=== PATIENT | female | born 1980 | race Caucasian/White ===

== ENCOUNTER 2016-06-12 22:30 | Emergency (ER) | payer OTHER ==
[~2016-06-12] VITALS: Ht 167.6 cm; Wt 127.4 kg
[~2016-06-12 22:30] MED LIST: AMIT25TA9 PO; ARIP5TAB PO; CHLO25TA16 PO; CIPR-280 PO; METF-200 PO; ONDA4TAB7 PO; OXYB5TAB25 PO; OXYC1TAB8 PO; SERT-88 PO; TAMS-1 PO; [UNRECOGNIZED DRUG - CODE] PO; [UNRECOGNIZED DRUG - OTHER]
--- OUTSIDE RECORDS SUMMARY | 2016-06-12 22:34 | XMS REPORT | Referral Summary ---
Author Author [facility] Organization [facility] Address Unknown Phone Unavailable Care Team Providers Care Certified Hyperbaric Technician Name Role Phone Jaziel Maynard Primary Care Physician [phone] Encounter Date(s): 07/26/14 - 07/26/14 [facility] [address] [address] [facility] Discharge Diagnosis: Diabetes Discharge Disposition: 01-Home or Self Care Attending Physician: Geovany Smalls MD Admitting Physician: Geovany Smalls MD Vital Signs Most recent to 1 oldest [Reference Range]: Peripheral Pulse 60 bpm Rate [60-100 bpm] (07/26/14 1:59 PM) Blood Pressure 100/70 mmHg [90-140/60-90 mmHg] (07/26/14 1:59 PM) Problem List Condition Effective Dates Status Health Status Informant Abdominal Active pain(Confirmed) Anxiety(Confirmed) Resolved bladder Resolved spasms(Confirmed) Chronic Active pain(Confirmed) depression(Confirmed Resolved ) diabetes(Confirmed) Resolved Endometriosis(Confir Resolved med) Hx of Kidney Resolved Stones(Confirmed) Hypercalcemia(Confir Active med) Increased white < 12/10/14 Resolved blood cell count(Confirmed) Lumbago(Confirmed) Active Metabolic Resolved syndrome(Confirmed) Morbid Active patient obesity(Confirmed) Obesity(Confirmed) Resolved PCOS(Confirmed) Resolved Lumbar disc Active herniation(Confirmed ) Stomach Resolved ulcer(Confirmed) Thoracic or Active lumbosacral neuritis or radiculitis, unspecified(Confirme d) Thoracic Active spondylosis(Confirme d) Tobacco Active use(Confirmed) Type 2 diabetes Active mellitus(Confirmed) Varicella Resolved Zoster(Confirmed) Allergies, Adverse Reactions, Alerts Substance Reaction Severity Status penicillin Rash Active Medications Abilify 2 mg oral tablet 1 tabs, Oral, Daily, # 90 tabs, 0 Refill(s) Start Date: 08/10/13 Status: Ordered amitriptyline 25 mg oral tablet See Instructions, TAKE 1 TABLET BY MOUTH EVERY EVENING AT BEDTIME, # 30 tabs, 1 Refill(s), eRx: [facility] #[id number], TAKE 1 TABLET BY MOUTH EVERY EVENING AT BEDTIME Start Date: 01/03/15 Status: Ordered cetirizine 10 mg oral tablet 10 mg 1 tabs, Oral, Daily, # 30 tabs, 3 Refill(s), Pharmacy: [facility] # [id number], 1 tabs Oral Daily Start Date: 12/03/14 Status: Ordered chlorthalidone 50 mg oral tablet 50 mg 1 tabs, Oral, Daily, # 30 tabs, 4 Refill(s), Pharmacy: [facility] # [id number], 1 tabs Oral Daily Start Date: 07/26/14 Status: Ordered Flomax mg, Oral, Daily, 0 Refill(s) Start Date: 11/18/14 Status: Ordered hydrOXYzine hydrochloride 25 mg, Oral, BID, as needed for anxiety, 0 Refill(s) Start Date: 08/10/13 Status: Ordered metFORMIN 500 mg oral tablet, extended release See Instructions, TAKE TWO TABLETS BY MOUTH TWICE A DAY, # 120 tabs, 2 Refill(s) , eRx: [facility] #[id number], TAKE TWO TABLETS BY MOUTH TWICE A DAY Start Date: 12/08/14 Status: Ordered [facility] Prescription compound hormone BID, 0 Refill(s) Start Date: 08/22/13 Status: Ordered potassium citrate 15 mEq oral tablet, extended release See Instructions, TAKE 1 TABLET BY MOUTH TWICE EVERY DAY, # 60 unknown unit, 5 Refill(s), eRx: [facility] #[id number], TAKE 1 TABLET BY MOUTH TWICE EVERY DAY Start Date: 10/08/14 Status: Ordered sertraline 100 mg oral tablet mg tabs, Oral, Daily, 0 Refill(s) Start Date: 07/26/14 Status: Ordered traMADol 50 mg oral tablet 100 mg 2 tabs, Oral, qPM, as needed for pain, n dillons, # 60 tabs, 0 Refill(s) Start Date: 01/17/15 Status: Ordered Results No data available for this section Immunizations No data available for this section Procedures Procedure Date Related Diagnosis Body Site Left L5-S1 Translaminar 12/08/13 Appendectomy Colonoscopy1 Hernia Hysterectomy Infection wound vac- post surgery Multiple Surgeries SIVA/BSO Tonsillectomy 1Old Records reviewed. Done by Dr. perez in [place]. 03/31/09. NEG except "diminutive" polyps x2 - path report showed hyperplastic ployps. Otherwise NEG. There was a coment that "other workup into the cause of her fatigue and persistent fever has been unrevealing." Social History Social History Type Response Smoking Status Former smoker; Type: Cigarettes; Tobacco use per day: 1 Pack ; Number of years: 131 1Quit 2 weeks ago approx 06/27/14 Assessment and Plan Extracted from: Title: Office Visit Note Author: Geovany Smalls MD Date: 07/26/14 Assessment/Plan Type II diabetes, stable and acceptable control. Recurrent nephrolithiasis. Plan: Continue metformin ER 500 mg 2 tablets twice daily. Check basic chemistry, urine albumin and A1c today. Dilated eye exam annually. Immunization needs to be up-to-date on all times. Regular exercise and healthier dietary choices encouraged. Continue chlorthalidone 50 mg daily. Advised to watch her salt intake, protein intake and dairies like milk, cheese or ice cream. Patient has been consuming quite a bitof dairies and this was discouraged. Adequate water hydration especially with summer approaching. Encourage moderate amount of fruit consumption to increase citrus and hopefully minimize nephrolithiasis. To stop cigarette smoking as soon as possible. Alcohol use in moderation advised. Return to clinic again in 3 months, sooner if with new problems. Extracted from: Title: Ambulatory Patient Education Author: Geovany Smalls MD Date: Family Medicine Diabetes and Exercise Exercising regularly is important. It is not just about losing weight. It has many health benefits, such as: Improving your overall fitness, flexibility, and endurance. Increasing your bone density. Helping with weight control. Decreasing your body fat. Increasing your muscle strength. Reducing stress and tension. Improving your overall health. People with diabetes who exercise gain additional benefits because exercise: Reduces appetite. Improves the body's use of blood sugar (glucose ). Helps lower or control blood glucose. Decreases blood pressure. Helps control blood lipids (such as cholesterol and triglycerides). Improves the body's use of the hormone insulin by: Increasing the body's insulin sensitivity. Reducing the body's insulin needs. Decreases the risk for heart disease because exercising: Lowers cholesterol and triglycerides levels. Increases the levels of good cholesterol (such as high-density lipoproteins [HDL]) in the body. Lowers blood glucose levels. YOUR ACTIVITY PLAN Choose an activity that you enjoy and set realistic goals. Your health care provider or asthma educator can help you make an activity plan that works for you. You can break activities into 2 or 3 sessions throughout the day. Doing so is as good as one long session. Exercise ideas include: Taking the dog for a walk. Taking the stairs instead of the elevator. Dancing to your favorite song. Doing your favorite exercise with a friend. RECOMMENDATIONS FOR EXERCISING WITH TYPE 1 OR TYPE 2 DIABETES Check your blood glucose before exercising. If blood glucose levels are greater than 240 mg/dL, check for urine ketones. Do not exercise if ketones are present. Avoid injecting insulin into areas of the body that are going to be exercised. For example, avoid injecting insulin into: The arms when playing tennis. The legs when jogging. Keep a record of: Food intake before and after you exercise. Expected peak times of insulin action. Blood glucose levels before and after you exercise. The type and amount of exercise you have done. Review your records with your health care provider. Your health care provider will help you to develop guidelines for adjusting food intake and insulin amounts before and after exercising. If you take insulin or oral hypoglycemic agents, watch for signs and symptoms of hypoglycemia. They include: Dizziness. Shaking. Sweating. Chills. Confusion. Drink plenty of water while you exercise to prevent dehydration or heat stroke. Body water is lost during exercise and must be replaced. Talk to your health care provider before starting an exercise program to make sure it is safe for you. Remember, almost any type of activity is better than none. Document Released: 05/17/2004 Document Revised: 10/28/2013 Document Reviewed: ExitCare Patient Information 2014 [facility]. No follow up information was provided.
--- OUTSIDE RECORDS SUMMARY | 2016-06-12 22:34 | XMS REPORT | Referral Summary ---
Author Author [facility] Organization [facility] Address Unknown Phone Unavailable Care Team Providers Care Settlement Worker Name Role Phone Jaziel Maynard Primary Care Physician [phone] Encounter Date(s): 07/26/14 - 07/26/14 [facility] [address] [address] [facility] Discharge Diagnosis: Diabetes Discharge Disposition: 01-Home or [...] BEDTIME, # 30 tabs, 1 Refill(s), eRx: [facility] #[id number], TAKE 1 TABLET BY MOUTH EVERY EVENING AT BEDTIME Start Date: 01/03/15 Status: Ordered cetirizine 10 mg oral tablet 10 mg 1 tabs, Oral, Daily, # 30 tabs, 3 Refill(s), Pharmacy: [facility] # [id number], 1 tabs Oral Daily Start Date: 12/03/14 Status: Ordered chlorthalidone 50 mg oral tablet 50 mg 1 tabs, Oral, Daily, # 30 tabs, 4 Refill(s), Pharmacy: [facility] # [id number], 1 tabs Oral Daily Start Date: 07/26/14 Status: Ordered Flomax mg, Oral, Daily, 0 Refill(s) Start Date: 11/18/14 Status: Ordered hydrOXYzine hydrochloride 25 mg, Oral, BID, as needed for anxiety, 0 Refill(s) Start Date: 08/10/13 Status: Ordered metFORMIN 500 mg oral tablet, extended release See Instructions, TAKE TWO TABLETS BY MOUTH TWICE A DAY, # 120 tabs, 2 Refill(s) , eRx: [facility] #[id number], TAKE TWO TABLETS BY MOUTH TWICE A DAY Start Date: 12/08/14 Status: Ordered Misc Prescription compound hormone BID, 0 Refill(s) Start Date: 08/22/13 Status: Ordered potassium citrate 15 mEq oral tablet, extended release See Instructions, TAKE 1 TABLET BY MOUTH TWICE EVERY DAY, # 60 unknown unit, 5 Refill(s), eRx: [facility] #[id number], TAKE 1 TABLET BY MOUTH TWICE EVERY DAY Start Date: 10/08/14 Status: Ordered sertraline 100 mg oral tablet mg tabs, Oral, Daily, 0 Refill(s) Start Date: 07/26/14 Status: Ordered Results No data available for this section Immunizations No data available for this section Procedures Procedure Date Related Diagnosis Body Site Left L5-S1 Translaminar 12/08/13 Appendectomy Colonoscopy1 Hernia Hysterectomy Infection wound vac- post surgery Multiple Surgeries SIVA/BSO Tonsillectomy 1Old Records reviewed. Done by Dr. perez in [place]. 03/31/09. NEG except "diminutive" polyps x2 - [...] realistic goals. Your health care provider or hospice educator can help you make an activity [...] 10/28/2013 Document Reviewed: ExitCare Patient Information 2014 [employer], [facility]. No follow up information was provided.
--- OUTSIDE RECORDS SUMMARY | 2016-06-12 22:34 | XMS REPORT | Referral Summary ---
Author Author [facility] Organization [facility] Address Unknown Phone Unavailable Care Team Providers Care Human Resources Officer Name Role Phone Jonathan Allen Primary Care Physician [phone] Encounter [facility] [id number] Date(s): 07/04/15 - 07/04/15 [facility] [address] [place] [address] Discharge Disposition: 01-Home or Self Care Attending Physician: Eboni Rodriguez PA-C Admitting Physician: Eboni Rodriguez PA-C Referring Physician: Rafal Maynard MD Vital Signs Most recent to 1 oldest [Reference Range]: Blood Pressure 110/72 mmHg [90-140/60-90 mmHg] (07/04/15 1:05 PM) Problem List Condition Effective Dates Status Health Status Informant Abdominal Active pain(Confirmed) Anxiety(Confirmed) Resolved bladder Resolved spasms(Confirmed) Chronic low back Active pain(Confirmed) Chronic Active pain(Confirmed) DDD (degenerative Active disc disease), lumbar(Confirmed) depression(Confirmed Resolved ) diabetes(Confirmed) Resolved Endometriosis(Confir Resolved med) Hx of Kidney Resolved Stones(Confirmed) Hypercalcemia(Confir Active med) Increased white < 10/2/15 Resolved blood cell count(Confirmed) Lumbago(Confirmed) Active Lumbar Active radiculopathy(Confir med) Metabolic Resolved syndrome(Confirmed) Morbid Active patient obesity(Confirmed) Obesity(Confirmed) Resolved Encounter for Active chronic pain management(Confirmed ) PCOS(Confirmed) Resolved Lumbar disc Active herniation(Confirmed ) Stomach Resolved ulcer(Confirmed) Thoracic Active spondylosis(Confirme d) Tobacco Active use(Confirmed) Type 2 diabetes Active mellitus(Confirmed) Varicella Resolved Zoster(Confirmed) Allergies, Adverse Reactions, Alerts Substance Reaction Severity Status penicillin Rash Active Medications Abilify 2 mg oral tablet 1 tabs, Oral, Daily, # 90 tabs, 0 Refill(s) Start Date: 08/10/13 Status: Ordered allopurinol 100 mg oral tablet 100 mg 1 tabs, Oral, Daily, # 30 tabs, 5 Refill(s), Pharmacy: [facility] # [id number], 1 tabs Oral Daily Start Date: 02/23/15 Status: Ordered amitriptyline 25 mg oral tablet See Instructions, TAKE 1 TABLET BY MOUTH EVERY EVENING AT BEDTIME, # 30 tabs, 5 Refill(s), eRx: [facility] #[id number], TAKE 1 TABLET BY MOUTH EVERY EVENING AT BEDTIME Start Date: 03/16/15 Status: Ordered chlorthalidone 50 mg oral tablet See Instructions, TAKE ONE TABLET BY MOUTH DAILY, # 30 tabs, 2 Refill(s), Pharmacy: [facility] #[id number], TAKE ONE TABLET BY MOUTH DAILY Start Date: 06/21/15 Status: Ordered hydrOXYzine hydrochloride 25 mg, Oral, BID, as needed for anxiety, 0 Refill(s) Start Date: 08/10/13 Status: Ordered metFORMIN 500 mg oral tablet, extended release See Instructions, TAKE TWO TABLETS BY MOUTH TWICE A DAY, # 120 tabs, 2 Refill(s) , Pharmacy: [facility] #[id number], TAKE TWO TABLETS BY MOUTH TWICE A DAY Start Date: 06/13/15 Status: Ordered Misc Prescription compound hormone BID, 0 Refill(s) Start Date: 08/22/13 Status: Ordered potassium citrate 15 mEq oral tablet, extended release See Instructions, TAKE 1 TABLET BY MOUTH TWICE EVERY DAY, # 60 unknown unit, 4 Refill(s), eRx: [facility] #[id number], TAKE 1 TABLET BY MOUTH TWICE EVERY DAY Start Date: 04/26/15 Status: Ordered sertraline 100 mg oral tablet [...] Records reviewed. Done by Dr. perez in [place]. 03/31/09. NEG except "diminutive" polyps x2 - [...] weeks ago approx 06/27/14 Assessment and Plan No data available for this section
--- OUTSIDE RECORDS SUMMARY | 2016-06-12 22:34 | XMS REPORT | Referral Summary ---
Author Author [facility] Organization [facility] Address Unknown Phone Unavailable Care Team Providers Care Pct Name Role Phone Jaziel Maynard Primary Care Physician [phone] Encounter [facility] Date(s): 07/27/14 - 07/27/14 [facility] [address] [place] [address] Discharge Diagnosis: Elevated white blood cell count Discharge Diagnosis: Abdominal pain Discharge Diagnosis: Tobacco use Discharge Diagnosis: Chronic pain Discharge Disposition: 01-Home or Self Care Attending Physician: Rafal Maynard MD Admitting Physician: Rafal Maynard MD Vital Signs Most recent to 1 oldest [Reference Range]: Temperature Tympanic 36.8 degC [36.6-38.1 degC] (07/27/14 11:45 AM) Peripheral Pulse 60 bpm Rate [60-100 bpm] (07/27/14 11:45 AM) Blood Pressure 119/89 mmHg [90-140/60-90 mmHg] (07/27/14 11:45 AM) Problem List Condition Effective Dates Status Health [...] BEDTIME, # 30 tabs, 1 Refill(s), eRx: [facility] #[id number], TAKE 1 TABLET BY MOUTH EVERY EVENING AT BEDTIME Start Date: 01/03/15 Status: Ordered cetirizine 10 mg oral tablet 10 mg 1 tabs, Oral, Daily, # 30 tabs, 3 Refill(s), Pharmacy: [facility] # [id number], 1 tabs Oral Daily Start Date: 12/03/14 Status: Ordered chlorthalidone 50 mg oral tablet 50 mg 1 tabs, Oral, Daily, # 30 tabs, 4 Refill(s), Pharmacy: [facility] # [id number], 1 tabs Oral Daily Start Date: 07/26/14 Status: Ordered Flomax mg, Oral, Daily, 0 Refill(s) Start Date: 11/18/14 Status: Ordered hydrOXYzine hydrochloride 25 mg, Oral, BID, as needed for anxiety, 0 Refill(s) Start Date: 08/10/13 Status: Ordered metFORMIN 500 mg oral tablet, extended release See Instructions, TAKE TWO TABLETS BY MOUTH TWICE A DAY, # 120 tabs, 2 Refill(s) , eRx: [facility] #[id number], TAKE TWO TABLETS BY MOUTH TWICE A DAY Start Date: 12/08/14 Status: Ordered [facility] Prescription compound hormone BID, 0 Refill(s) Start Date: 08/22/13 Status: Ordered potassium citrate 15 mEq oral tablet, extended release See Instructions, TAKE 1 TABLET BY MOUTH TWICE EVERY DAY, # 60 unknown unit, 5 Refill(s), eRx: [facility] #[id number], TAKE 1 TABLET BY MOUTH TWICE EVERY [...] Records reviewed. Done by Dr. perez in [place]. 03/31/09. NEG except "diminutive" polyps x2 - [...] 06/27/14 Assessment and Plan Extracted from: Title: Chronic pain follow-up Author: Rafal Maynard MD Date: 07/28/14 Assessment/Plan Abdominal pain Chronic pain Tobacco use Orders: We discussed situation with all of these issues and I tried to provide emotional support. Refill provided for tramadol. Follow-up again in 3 months or sooner if needed.
--- OUTSIDE RECORDS SUMMARY | 2016-06-12 22:34 | XMS REPORT | Continuity of Care Document ---
Author Author [facility] Address Unknown Phone Unavailable Care Team Providers Care Advertising Space Clerk Name Role Phone [employer] Unavailable Unavailable Problems Medications Allergies, Adverse Reactions, Alerts Immunizations Results Vital Signs Encounters Procedures Plan of Care Social History Assessment and Plan Family History Value Date Source Advance Directives Order Name Results Value Date Source
--- OUTSIDE RECORDS SUMMARY | 2016-06-12 22:34 | XMS REPORT | Referral Summary ---
Author Author [facility] Organization [facility] Address Unknown Phone Unavailable Care Team Providers Care Oncology Technician Name Role Phone Jaziel Maynard Primary Care Physician [phone] Encounter Date(s): 07/14/14 - 07/14/14 [facility] [address] [id number] Discharge Diagnosis: Colon polyp Discharge Disposition: 01-Home or Self Care Attending Physician: Caren Shah MD Admitting Physician: Caren Shah MD Vital Signs Most recent to 1 oldest [Reference Range]: Temperature Oral 36.5 degC [35.8-37.3 degC] (07/14/14 8:39 AM) Peripheral Pulse 112 bpm Rate [60-100 bpm] *HI* (07/14/14 8:39 AM) Respiratory Rate 18 br/min [14-20 br/min] (07/14/14 8:39 AM) Blood Pressure 127/88 mmHg [90-140/60-90 mmHg] (07/14/14 8:39 AM) SpO2 99 % (07/14/14 8:39 AM) Problem List Condition Effective Dates Status [...] BEDTIME, # 30 tabs, 1 Refill(s), eRx: [facility] #[id number], TAKE 1 TABLET BY MOUTH EVERY EVENING AT BEDTIME Start Date: 01/03/15 Status: Ordered cetirizine 10 mg oral tablet 10 mg 1 tabs, Oral, Daily, # 30 tabs, 3 Refill(s), Pharmacy: [facility] # [id number], 1 tabs Oral Daily Start Date: 12/03/14 Status: Ordered chlorthalidone 50 mg oral tablet 50 mg 1 tabs, Oral, Daily, # 30 tabs, 4 Refill(s), Pharmacy: [facility] # [id number], 1 tabs Oral Daily Start Date: 07/26/14 Status: Ordered Flomax mg, Oral, Daily, 0 Refill(s) Start Date: 11/18/14 Status: Ordered hydrOXYzine hydrochloride 25 mg, Oral, BID, as needed for anxiety, 0 Refill(s) Start Date: 08/10/13 Status: Ordered metFORMIN 500 mg oral tablet, extended release See Instructions, TAKE TWO TABLETS BY MOUTH TWICE A DAY, # 120 tabs, 2 Refill(s) , eRx: [facility] #[id number], TAKE TWO TABLETS BY MOUTH TWICE A DAY Start Date: 12/08/14 Status: Ordered Misc Prescription compound hormone BID, 0 Refill(s) Start Date: 08/22/13 Status: Ordered potassium citrate 15 mEq oral tablet, extended release See Instructions, TAKE 1 TABLET BY MOUTH TWICE EVERY DAY, # 60 unknown unit, 5 Refill(s), eRx: [facility] #[id number], TAKE 1 TABLET BY MOUTH TWICE EVERY DAY Start Date: 10/08/14 Status: Ordered sertraline 100 mg oral tablet mg tabs, Oral, Daily, 0 Refill(s) Start Date: 5/18/15 Status: Ordered Results No data available for this section Immunizations No data available for this section Procedures Procedure Date Related Diagnosis Body Site Colonoscopy, flexible; with biopsy, single or 07/14/14 multiple Colonoscopy, flexible; with biopsy, single or 07/14/14 multiple Esophagogastroduodenoscopy, flexible, 07/14/14 transoral; with biopsy, single or multiple Esophagogastroduodenoscopy, flexible, 07/14/14 transoral; with biopsy, single or multiple Left L5-S1 Translaminar 12/08/13 Appendectomy Colonoscopy1 Hernia Hysterectomy Infection wound vac- post surgery Multiple Surgeries SIVA/BSO Tonsillectomy 1Old Records reviewed. Done by Dr. perez in [place]. 03/31/09. NEG except "diminutive" polyps x2 - [...] 06/27/14 Assessment and Plan Extracted from: Title: Ambulatory Patient Education Author: Caren Shah MD Date: 07/14 Family Medicine Colon Polyps Polyps are lumps of extra tissue growing inside the body. Polyps can grow in the large intestine (colon ). Most colon polyps are noncancerous (benign ). However, some colon polyps can become cancerous over time. Polyps that are larger than a pea may be harmful. To be safe, caregivers remove and test all polyps. CAUSES Polyps form when mutations in the genes cause your cells to grow and divide even though no more tissue is needed. RISK FACTORS There are a number of risk factors that can increase your chances of getting colon polyps. They include: Being older than 50 years. Family history of colon polyps or colon cancer. Long-term colon diseases, such as colitis or Crohn disease. Being overweight. Smoking. Being inactive. Drinking too much alcohol. SYMPTOMS Most small polyps do not cause symptoms. If symptoms are present, they may include: Blood in the stool. The stool may look dark red or black. Constipation or diarrhea that lasts longer than 1 week. DIAGNOSIS People often do not know they have polyps until their caregiver finds them during a regular checkup. Your caregiver can use 4 tests to check for polyps: Digital rectal exam. The caregiver wears gloves and feels inside the rectum. This test would find polyps only in the rectum. Barium enema. The caregiver puts a liquid called barium into your rectum before taking X-rays of your colon. Barium makes your colon look white. Polyps are dark, so they are easy to see in the X-ray pictures. Sigmoidoscopy. A thin, flexible tube (sigmoidoscope ) is placed into your rectum. The sigmoidoscope has a light and tiny camera in it. The caregiver uses the sigmoidoscope to look at the last third of your colon. Colonoscopy. This test is like sigmoidoscopy, but the caregiver looks at the entire colon. This is the most common method for finding and removing polyps. TREATMENT Any polyps will be removed during a sigmoidoscopy or colonoscopy. The polyps are then tested for cancer. PREVENTION To help lower your risk of getting more colon polyps: Eat plenty of fruits and vegetables. Avoid eating fatty foods. Do not smoke. Avoid drinking alcohol. Exercise every day. Lose weight if recommended by your caregiver. Eat plenty of calcium and folate. Foods that are rich in calcium include milk, cheese, and broccoli. Foods that are rich in folate include chickpeas, kidney beans, and spinach. HOME CARE INSTRUCTIONS Keep all follow-up appointments as directed by your caregiver. You may need periodic exams to check for polyps. SEEK MEDICAL CARE IF: You notice bleeding during a bowel movement. Document Released: 11/21/2004 Document Revised: 05/19/2012 Document Reviewed: [facility] Patient Information 2014 [employer]. No follow up information was provided.
--- OUTSIDE RECORDS SUMMARY | 2016-06-12 22:34 | XMS REPORT | Referral Summary ---
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 Name Role Phone Jaziel Maynard Primary Care Physician [phone] Encounter Date(s): 02/17/15 - 02/17/15 [facility] [address] [address] [facility] Discharge Diagnosis: Diabetes Discharge Disposition: 01-Home or Self Care Attending Physician: Geovany Smalls MD Admitting Physician: Geovany Smalls MD Vital Signs Most recent to 1 oldest [Reference Range]: Apical Heart Rate 60 bpm [60-100 bpm] (02/17/15 10:19 AM) Blood Pressure 116/68 mmHg [90-140/60-90 mmHg] (02/17/15 10:19 AM) Problem List Condition Effective Dates Status [...] BEDTIME, # 30 tabs, 1 Refill(s), eRx: [facility] #[id number], TAKE 1 TABLET BY MOUTH EVERY EVENING AT BEDTIME Start Date: 01/03/15 Status: Ordered cetirizine 10 mg oral tablet 10 mg 1 tabs, Oral, Daily, # 30 tabs, 3 Refill(s), Pharmacy: [facility] # [id number], 1 tabs Oral Daily Start Date: 12/03/14 Status: Ordered chlorthalidone 50 mg oral tablet 50 mg 1 tabs, Oral, Daily, # 30 tabs, 4 Refill(s), Pharmacy: [facility] # [id number], 1 tabs Oral Daily Start Date: 07/26/14 Status: Ordered Flomax mg, Oral, Daily, 0 Refill(s) Start Date: 11/18/14 Status: Ordered hydrOXYzine hydrochloride 25 mg, Oral, BID, as needed for anxiety, 0 Refill(s) Start Date: 08/10/13 Status: Ordered metFORMIN 500 mg oral tablet, extended release See Instructions, TAKE TWO TABLETS BY MOUTH TWICE A DAY, # 120 tabs, 2 Refill(s) , eRx: [facility] #[id number], TAKE TWO TABLETS BY MOUTH TWICE A DAY Start Date: 12/08/14 Status: Ordered [facility] Prescription compound hormone BID, 0 Refill(s) Start Date: 08/22/13 Status: Ordered potassium citrate 15 mEq oral tablet, extended release See Instructions, TAKE 1 TABLET BY MOUTH TWICE EVERY DAY, # 60 unknown unit, 5 Refill(s), eRx: [facility] #[id number], TAKE 1 TABLET BY MOUTH TWICE EVERY DAY Start Date: 10/08/14 Status: Ordered sertraline 100 mg oral tablet mg tabs, Oral, Daily, 0 Refill(s) Start Date: 07/26/14 Status: Ordered traMADol 50 mg oral tablet 100 mg 2 tabs, Oral, qPM, as needed for pain, [place], # 60 tabs, 0 Refill(s) Start Date: 01/17/15 Status: Ordered Results Hematology Most recent to 1 oldest [Reference Range]: WBC [4.8-10.8 13.8 10*3/uL 10*3/uL] *HI* (02/17/15 11:52 AM) RBC [4.00-5.20] 5.22 *HI* (02/17/15:52 AM) Hgb [12.0-16.0 14.8 gm/dL gm/dL] (02/17/15:52 AM) Hct [37.0-47.0 %] 43.4 % (02/17/1552 AM) MCV [82.0-99.0 fL] 83.1 fL (02/17/15:52 AM) MCH [27.0-32.0 pg] 28.4 pg (02/17/15:52 AM) MCHC [32.0-36.0 34.1 gm/dL gm/dL] (02/17/15:52 AM) RDW [11.5-14.5 %] 13.8 % (02/17/15:52 AM) Platelet [150-400 329 10*3/uL 10*3/uL] (02/17/15 11:52 AM) MPV [8.8-14.8 fL] 11.4 fL (02/17/15 11:52 AM) Neutrophils [51-75 64 % %] (02/17/15 11:52 AM) Lymphocytes [20-46 27 % %] (02/17/15 11:52 AM) Monocytes [4-11 %] 3 % *LOW* (02/17/15:52 AM) Eosinophils [0-4 %] 4 % (02/17/15:52 AM) Basophils [0-2 %] 2 % (02/17/15 11:52 AM) Neutro Absolute 8.83 10*3 [1.90-7.00 10*3] *HI* (02/17/15 11:52 AM) Lymph Absolute 3.73 10*3 [0.80-3.30 10*3] *HI* (02/17/15 11:52 AM) Swisher Absolute 0.41 10*3 [0.30-1.00 10*3] (02/17/15 11:52 AM) Eos Absolute 0.55 10*3 [0.00-0.50 10*3] *HI* (02/17/15:52 AM) Baso Absolute 0.28 10*3 [0.00-0.20 10*3] *HI* (02/17/15:52 AM) Differential Manual *ABN* (02/17/1552 AM) Chemistry Most recent to 1 oldest [Reference Range]: Sodium Lvl [135-144 137 mEq/L mEq/L] (02/17/1552 AM) Potassium Lvl 3.4 mEq/L [3.5-5.2 mEq/L] *LOW* (02/17/1552 AM) Chloride [99-111 103 mEq/L mEq/L] (02/17/15 AM) CO2 [22-31 mEq/L] 22 mEq/L (02/17/1552 AM) AGAP [3-20] 12 (02/17/15:52 AM) BUN [7-19 mg/dL] 13 mg/dL (02/17/1552 AM) Glucose Lvl [70-99 100 mg/dL mg/dL] *HI* (02/17/1552 AM) Creatinine Lvl 0.65 mg/dL [0.57-1.11 mg/dL] (02/17/15:52 AM) eGFR [>60 mL/min] >60 mL/min 1 (02/17/1552 AM) Calcium Lvl 9.7 mg/dL [8.9-10.5 mg/dL] (02/17/15:52 AM) Albumin Lvl [3.5-5.0 4.2 gm/dL gm/dL] (02/17/1552 AM) Total Protein 6.7 gm/dL [6.4-8.3 gm/dL] (02/17/15:52 AM) Globulin [1.8-4.0 2.5 gm/dL gm/dL] (02/17/15:52 AM) ALT [0-55 U/L] 30 U/L (02/17/1552 AM) AST [5-34 U/L] 36 U/L *HI* (02/17/1552 AM) Alk Phos [40-150 55 U/L U/L] (02/17/15 11:52 AM) Bili Total [0.2-1.2 0.4 mg/dL mg/dL] (02/17/15 11:52 AM) Uric Acid [2.6-6.0 6.2 mg/dL mg/dL] *HI* (02/17/15 11:52 AM) Calcium Ionized 1.31 mmol/L [1.19-1.41 mmol/L] (02/17/15 11:52 AM) PTH (Parathyroid 38.9 pg/mL Hormone) [6.6-88.9 (02/17/15 11:52 AM) pg/mL] TSH with Reflex Free 0.95 T4 [0.35-4.94] (02/17/15 11:52 AM) Hgb A1c [4.1-5.6 %] 5.9 % *HI* (02/17/15 11:52 AM) eAvg Glucose 122.6 mg/dL (02/17/15 11:52 AM) 1Result Comment: Multiply eGFR results by 1.21 for race. Immunizations No data available for this section Procedures Procedure Date Related Diagnosis Body Site Collection of venous blood by venipuncture 02/17/15 Left L5-S1 Translaminar 12/08/13 Appendectomy Colonoscopy1 Hernia Hysterectomy Infection wound vac- post surgery Multiple Surgeries SIAV/BSO Tonsillectomy 1Old Records reviewed. Done by Dr. perez in [place]. 03/31/09. NEG except "diminutive" polyps x2 - [...] Author: Geovany Smalls MD Date: Family Medicine Correction Insulin Your health care provider has decided you need to take insulin regularly. You have been given a correction scale (also called a sliding scale) in case you need extra insulin when your blood sugar is too high (hyperglycemia). The following instructions will assist you in how to use that correction scale. WHAT IS A CORRECTION SCALE? When you check your blood sugar, sometimes it will be higher than your health care provider has told you it should be. You may need an extra dose of insulin to bring your blood sugar to the recommended level (also known as your goal, target, or normal level). The correction scale is prescribed by your health care provider based on your specific needs. Your correction scale has two parts: The first shows you a blood sugar range. The second part tells you how much extra insulin to give yourself if your blood sugar falls within this range. You will not need an extra dose of insulin if your blood glucose is in the desired range. You should simply give yourself the normal amount of insulin that your health care provider has ordered for you. WHY IS IT IMPORTANT TO KEEP YOUR BLOOD SUGAR LEVELS AT YOUR DESIRED LEVEL? Keeping your blood sugar at the desired level helps to prevent long-term complications of diabetes, such as eye disease, kidney failure, nerve damage, and other serious complications. WHAT TYPE OF INSULIN WILL YOU USE? To help bring down blood sugar levels that are too high, your health care provider will prescribe a short-acting or a rapid-acting insulin. An example of a short-acting insulin would be regular insulin. Remember, you may also have a longer-acting insulin prescribed for you. WHAT DO YOU NEED TO DO? Check your blood sugar with your home blood glucose meter as recommended by your health care provider. Using your correction scale, find the range that your blood sugar lies in. Look for the units of insulin that match that blood sugar range. Give yourself the dose of correction insulin your health care provider has prescribed. Always make sure you are using the right type of insulin. Prior to the injection, make sure you have food available that you can eat in the next 1530 minutes. If your correction insulin is rapid acting, start eating your meal within 15 minutes after you have given yourself the insulin injection. If you wait longer than 15 minutes to eat, your blood sugar might get too low. If your correction insulin is short acting(regular), start eating your meal within 30 minutes after you have given yourself the insulin injection. If you wait longer than 30 minutes to eat, your blood sugar might get too low. Symptoms of low blood sugar (hypoglycemia) may include feeling shaky or weak, sweating, feeling confused, difficulty seeing, agitation, crankiness, or numbness of the lips or tongue. Check your blood sugar immediately and treat your results as directed by your health care provider. Keep a log of your blood sugar results with the time you took the test and the amount of insulin that you injected. This information will help your health care provider manage your medicines. Note on your log anything that may affect your blood sugar level, such as: Changes in normal exercise or activity. Changes in your normal schedule, such as staying up late, going on vacation , changing your diet, or holidays. New medicines. This includes prescription and [id number] medicines. Some medicines may cause high blood sugar. Sickness, stress, or anxiety. Changes in the time you took your medicine. Changes in your meals, such as skipping a meal, having a late meal, or dining out. Eating things that may affect blood glucose, such as snacks, meal portions that are larger than normal, drinks with sugar, or eating less than usual. Ask your health care provider any questions you have. Be aware of "stacking" your insulin doses. This happens when you correct a high blood sugar level by giving yourself extra insulin too soon after a previous correction dose or mealtime dose. You may then have too much insulin still active in your body and may be at risk for hypoglycemia. WHY DO YOU NEED A CORRECTION SCALE IF YOU HAVE NEVER BEEN DIAGNOSED WITH DIABETES? Keeping your blood glucose in the target range is important for your overall health. You may have been prescribed medicines that cause your blood glucose to be higher than normal. WHEN SHOULD YOU SEEK MEDICAL CARE? Contact your health care provider if: You have experienced hypoglycemia that you are unable to treat with your usual routine. You have a high blood sugar level that is not coming down with the correction dose. Your blood sugar is often too low or does not come up even if you eat a fast-acting carbohydrate. Someone who lives with you should seek immediate medical care if you become unresponsive. Document Released: 07/19/2011 Document Revised: 10/28/2013 Document Reviewed: [employer] Patient Information 2015 [employer]. This information is not intended to replace advice given to you by your health care provider. Make sure you discuss any questions you have with your health care provider. No follow up information was provided.
--- OUTSIDE RECORDS SUMMARY | 2016-06-12 22:35 | XMS REPORT | Referral Summary ---
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 [id number] Date(s): 11/18/14 - 11/18/14 [facility] [address] [place] [id number]- Discharge Diagnosis: Acute URI Discharge Diagnosis: Tobacco use Discharge Diagnosis: Chronic pain Discharge Diagnosis: Recurrent nephrolithiasis Discharge Disposition: -Home or Self Care Attending Physician: Rafal Maynard MD Admitting Physician: Rafal Maynard MD Vital Signs Most recent to 1 oldest [Reference Range]: Temperature Tympanic 36.7 degC [36.6-38.1 degC] (11/18/14 3:50 PM) Peripheral Pulse 80 bpm Rate [60-100 bpm] (11/18/14 3:50 PM) Blood Pressure 125/88 mmHg [90-140/60-90 mmHg] (11/18/14 3:50 PM) Problem List Condition Effective Dates Status Health Status Informant Abdominal Active pain(Confirmed) Anxiety(Confirmed) Resolved bladder Resolved spasms(Confirmed) Chronic low back Active pain(Confirmed) Chronic Active pain(Confirmed) depression(Confirmed Resolved ) diabetes(Confirmed) [...] Daily, # 30 tabs, 5 Refill(s), Pharmacy: [facility] # [id number], 1 tabs Oral Daily Start Date: 02/23/15 Status: Ordered amitriptyline 25 mg oral tablet See Instructions, TAKE 1 TABLET BY MOUTH EVERY EVENING AT BEDTIME, # 30 tabs, 5 Refill(s), eRx: [facility] #[id number], TAKE 1 TABLET BY MOUTH EVERY EVENING AT BEDTIME Start Date: 03/16/15 Status: Ordered chlorthalidone 50 mg oral tablet See Instructions, TAKE ONE TABLET BY MOUTH DAILY, # 30 tabs, 3 Refill(s), eRx: [facility] #[id number], TAKE ONE TABLET BY MOUTH DAILY Start Date: 02/22/15 Status: Ordered hydrOXYzine hydrochloride 25 mg, Oral, BID, as needed for anxiety, 0 Refill(s) Start Date: 08/10/13 Status: Ordered metFORMIN 500 mg oral tablet, extended release See Instructions, TAKE TWO TABLETS BY MOUTH TWICE A DAY, # 120 tabs, 0 Refill(s) , Pharmacy: [facility] #[id number], TAKE TWO TABLETS BY MOUTH TWICE A DAY Start Date: 05/11/15 Status: Ordered Mis Prescription compound hormone BID, 0 Refill(s) Start Date: 08/22/13 Status: Ordered potassium citrate 15 mEq oral tablet, extended release See Instructions, TAKE 1 TABLET BY MOUTH TWICE EVERY DAY, # 60 unknown unit, 4 Refill(s), eRx: [facility] #[id number], TAKE 1 TABLET BY MOUTH TWICE EVERY DAY Start Date: 04/26/15 Status: Ordered sertraline 100 mg oral tablet mg tabs, Oral, Daily, 0 Refill(s) Start Date: 07/26/14 Status: Ordered traMADol 50 mg oral tablet 100 mg 2 tabs, Oral, qPM, as needed for pain, n kenna, # 60 tabs, 0 Refill(s) Start Date: 05/24/15 Status: Ordered Results No data available for this section Immunizations No data available for this section Procedures Procedure Date Related Diagnosis Body Site Left L5-S1 Translaminar 12/08/13 Appendectomy Colonoscopy1 Hernia Hysterectomy Infection wound vac- post surgery Multiple Surgeries SIVA/BSO Tonsillectomy 1Old Records reviewed. Done by Dr. perez in [place]. 03/31/09. NEG except "diminutive" polyps x2 - [...] Extracted from: Title: Ambulatory Patient Education Author: Rafal Maynard MD Date: 12/23 Family Medicine Kidney Stones Kidney stones (urolithiasis) are deposits that form inside your kidneys. The intense pain is caused by the stone moving through the urinary tract. When the stone moves, the ureter goes into spasm around the stone. The stone is usually passed in the urine. CAUSES A disorder that makes certain neck glands produce too much parathyroid hormone (primary hyperparathyroidism). A buildup of uric acid crystals, similar to gout in your joints. Narrowing (stricture) of the ureter. A kidney obstruction present at (congenital obstruction). Previous surgery on the kidney or ureters. Numerous kidney infections. SYMPTOMS Feeling sick to your stomach (nauseous). Throwing up (vomiting). Blood in the urine (hematuria). Pain that usually spreads (radiates) to the groin. Frequency or urgency of urination. DIAGNOSIS Taking a history and physical exam. Blood or urine tests. CT scan. Occasionally, an examination of the inside of the urinary bladder ( cystoscopy) is performed. TREATMENT Observation. Increasing your fluid intake. Extracorporeal shock wave lithotripsyThis is a noninvasive procedure that uses shock waves to break up kidney stones. Surgery may be needed if you have severe pain or persistent obstruction. There are various surgical procedures. Most of the procedures are performed with the use of small instruments. Only small incisions are needed to accommodate these instruments, so recovery time is minimized. The size, location, and chemical composition are all important variables that will determine the proper choice of action for you. Talk to your health care provider to better understand your situation so that you will minimize the risk of injury to yourself and your kidney. HOME CARE INSTRUCTIONS Drink enough water and fluids to keep your urine clear or pale yellow. This will help you to pass the stone or stone fragments. Strain all urine through the provided strainer. Keep all particulate matter and stones for your health care provider to see. The stone causing the pain may be as small as a grain of salt. It is very important to use the strainer each and every time you pass your urine. The collection of your stone will allow your health care provider to analyze it and verify that a stone has actually passed. The stone analysis will often identify what you can do to reduce the incidence of recurrences. Only take lcmy-xwi-[id number] or prescription medicines for pain, discomfort, or fever as directed by your health care provider. Make a follow-up appointment with your health care provider as directed. Get follow-up X-rays if required. The absence of pain does not always mean that the stone has passed. It may have only stopped moving. If the urine remains completely obstructed, it can cause loss of kidney function or even complete destruction of the kidney. It is your responsibility to make sure X- rays and follow-ups are completed. Ultrasounds of the kidney can show blockages and the status of the kidney. Ultrasounds are not associated with any radiation and can be performed easily in a matter of minutes. SEEK MEDICAL CARE IF: You experience pain that is progressive and unresponsive to any pain medicine you have been prescribed. SEEK IMMEDIATE MEDICAL CARE IF: Pain cannot be controlled with the prescribed medicine. You have a fever or shaking chills. The severity or intensity of pain increases over 18 hours and is not relieved by pain medicine. You develop a new onset of abdominal pain. You feel faint or pass out. You are unable to urinate. MAKE SURE YOU: Understand these instructions. Will watch your condition. Will get help right away if you are not doing well or get worse. Document Released: 02/25/2006 Document Revised: 10/28/2013 Document Reviewed: [employer] Patient Information 2015 [employer]. This information is not intended to replace advice given to you by your health care provider. Make sure you discuss any questions you have with your health care provider. No follow up information was provided. Extracted from: Title: Office Visit Note Author: Rafal Maynard MD Date: 11/18/14 Assessment/Plan Acute URI I think symptoms are likely viral. In viewof herother medications, I suggested trying to manage this withnasal rinses. We discussed expected course. Chronic pain Return to previous planned for chronic pain management and I proved refills of tramadol. Recurrent nephrolithiasis She continues to follow with in [place] and alsoconsideringarranging [facility]. Tobacco use We discussed smoking cessation strategies anduse of nicotine replacement. Orders: traMADol, 100 mg 2 tabs, Oral, qPM, as needed for pain, n dillons, # 60 tabs, 0 Refill(s)
--- OUTSIDE RECORDS SUMMARY | 2016-06-12 22:35 | XMS REPORT | Continuity of Care Document ---
Author Author [facility] Organization [facility] Address Unknown Phone Unavailable Support Name Relationship Address Phone BRANDI FORD MD Caregiver [address] [place] [address] ABRAHAM VAUGHN MD Caregiver [address] [place] [address] RYDER STEINBERG Next Of Kin [address] [place] [address] Insurance Providers Payer Name Policy Number Subscriber Name Relationship [place] [employer] [id number] Ryder Steinberg 01 Spouse Problems Medical Problems Problem Onset Date Status ABDOMINAL PAIN Unknown Active Cough Unknown Active Right distal ureteral calculus Unknown Active Left ureteral calculus Unknown Active History of kidney stones Unknown Active Acute left flank pain Unknown Active History of kidney stones Unknown Active Medications Medication Dose Route Sig Days/Qty Instructions Order Date Discontinued Date Status Metformin Hcl 1,000 Mg PO TWICE A DAY 04/16/11 Active Citalopram Hydrobromide 40 Mg PO DAILY 04/16/11 12/31/11 Discontinued Multivitamins 1 Tab PO DAILY 04/16/11 04/23/12 Discontinued Alden-3 Fatty Acids 500 Mg PO DAILY 04/16/11 12/31/11 Discontinued [Hormone Replacement] 04/16/11 04/23/12 Discontinued Potassium Citrate 10 Meq PO TWICE A DAY 04/16/11 Active Hydrocodone Bit/Acetaminophen 1 Tab PO NEEDED 12/24/11 04/23/12 Discontinued Oxycodone Hcl/Acetaminophen 1 Tab PO NEEDED 12/24/11 12/31/11 Discontinued Ibuprofen 800 Mg PO NEEDED 12/24/11 04/23/12 Discontinued Sertraline Hcl 50 Mg PO 12/31/11 12/31/11 Discontinued [Buspar] 12/31/11 04/23/12 Discontinued Sertraline Hcl 200 Mg PO DAILY 04/23/12 Active Chlorthalidone 50 Mg PO DAILY 03/15/13 Active Aripiprazole 5 Mg PO DAILY 08/22/13 Active [Bioidentical Don] 1 Misc DAILY 08/22/13 Active Ondansetron 4 Mg PO Every 6 Hours 10 Qty 08/22/13 Active Hydrocodone Bit/Acetaminophen 1 Tab PO EVERY 4-6 HOURS PRN PAIN 20 Qty 08/22/13 Active Phenazopyridine Hcl 200 Mg PO THREE TIMES A DAY PRN URINARY DISCOMFORT 10 Qty 08/22/13 Active Social History Social History Problem Response Recorded Date/Time Smoking Status Current every day smoker 08/22/2013 11:13am Chewing Tobacco Status No 08/22/2013 11:13am Hx Substance Use No 08/22/2013 11:13am Hx Alcohol Use Y 1 glass of wine every couple of months 08/22/2013 11:13am Query Response Start Date Stop Date Smoking Status Current every day smoker Hospital Discharge Instructions No hospital discharge instructions. Plan of Care No plan of care. Functional Status No functional status results. Allergies, Adverse Reactions, Alerts Allergen Type Severity Reaction Status Last Updated Penicillin Allergy Unknown Active 08/22/13 Immunizations Name Given Type Hx Influenza Vaccination No Historical Hx Pneumococcal Vaccination Y 2009 Historical Hx Influenza Vaccination No Historical Vital Signs Acute Vital Signs Vital Response Date/Time Temperature (Fahrenheit) 99.6 deg F (96.8 - 99.1) Temperature (Calculated Celsius) 37.69908 degrees C (36.0 - 37.3) Pulse Rate (adult) 88 bpm (60 - 100) Respiratory Rate 16 breaths/min (10 - 20) O2 Sat by Pulse Oximetry 96 % (90 - 100) Blood Pressure 134/67 mm Hg Height 5 ft 6 in Weight 279 lb Body Mass Index 45.0 kg/m^2 Results Test Source Date Result Interp. Ref. Range Comments Alanine Aminotransferase (ALT/SGPT) August 22, 2013 11:35am 40 U/L N 9-52 Albumin August 22, 2013 11:35am 4.5 G/DL N 3.5-5.0 Albumin/Globulin Ratio August 22, 2013 11:35am 1.4 RATIO N 1.1-2.2 Alkaline Phosphatase August 22, 2013 11:35am 64 U/L N 38-126 Amylase Level March 15, 2013 7:15pm 49 U/L N 30-110 Anion Gap August 22, 2013 11:35am 15 MEQ/L N 5-15 Aspartate Amino Transf (AST/SGOT) August 22, 2013 11:35am 51 U/L H 14-36 BUN/Creatinine Ratio August 22, 2013 11:35am 38 RATIO H 6-26 Band Neutrophils # August 22, 2013 11:35am 0.3 T/MM3 - Band Neutrophils % August 22, 2013 11:35am 2.0 % N 0-6 Basophils # (Auto) March 15, 2013 7:15pm 0.0 T/MM3 N 0-0.2 Basophils # (Manual) December 31, 2011 9:50pm 0.2 T/MM3 N 0-0.2 Basophils % (Manual) December 31, 2011 9:50pm 1.0 % N 0-2 Basophils (%) (Auto) March 15, 2013 7:15pm 0.4 % N 0-2 Blood Urea Nitrogen August 22, 2013 11:35am 19.0 MG/DL H 7-17 Bordetella pertussis DNA (PCR) April 16, 2011 9:28pm Ref lab rpt scanned - --- 04/18/11 1527 ---BORDPCR previously reported as: SENT OUT C-Reactive Protein June 06, 2012 10:05am 8.4 MG/L N 0-9 Calcium Level August 22, 2013 11:35am 9.4 MG/DL N 8.4-10.2 Calculated Osmolality August 22, 2013 11:35am 276 MOSM/KG N 261-280 Carbon Dioxide Level August 22, 2013 11:35am 21 MEQ/L L 22-30 Chloride Level August 22, 2013 11:35am 106 MEQ/L N 98-107 Conjugated Bilirubin April 23, 2012 1:15pm 0.00 MG/DL N 0.00-0.30 Creatinine August 22, 2013 11:35am 0.5 MG/DL L 0.7-1.2 Eosinophils # (Auto) March 15, 2013 7:15pm 0.2 T/MM3 N 0-0.5 Eosinophils # (Manual) December 31, 2011 9:50pm 0.2 T/MM3 N 0-0.5 Eosinophils % (Manual) December 31, 2011 9:50pm 1.0 % N 0-4 Eosinophils (%) (Auto) March 15, 2013 7:15pm 1.8 % N 0-4 Globulin August 22, 2013 11:35am 3.2 G/DL N 2.4-3.6 Glucose Level August 22, 2013 11:35am 122 MG/DL H 65-110 Helicobacter pylori Antibodies March 08, 2011 5:59pm Negative - Hematocrit August 22, 2013 11:35am 43.5 % N 36-46 Hemoglobin August 22, 2013 11:35am 14.7 GM/DL N 12-16 Influenza Type A Antigen March 15, 2013 7:15pm Negative - Negative for Flu A protein antigen. Assay sensitivity isbetween 65-83%. A negative result does not exclude influenza virus infection. "Influenza FA" may be ordered if clinical presentation warrants confirmatory testing. Influenza Type B Antigen March 15, 2013 7:15pm Negative - Negative for Flu B protein antigen. Assay sensitivity isbetween 65-83%. A negative result does not exclude influenza virus infection. "Influenza FA" may be ordered if clinical presentation warrants confirmatory testing. Lipase March 15, 2013 7:15pm 113 U/L N 23-300 Lymphocytes # (Auto) March 15, 2013 7:15pm 1.3 T/MM3 N 1-4.8 Lymphocytes # (Manual) August 22, 2013 11:35am 2.4 T/MM3 N 1-4.8 Lymphocytes % (Manual) August 22, 2013 11:35am 16.0 % L 23-45 Lymphocytes (%) (Auto) March 15, 2013 7:15pm 12.5 % L 23-45 Mean Corpuscular Hemoglobin August 22, 2013 11:35am 28.6 UUG N 26-34 Mean Corpuscular Hemoglobin Concent August 22, 2013 11:35am 33.8 GM/DL N 31-37 Mean Corpuscular Volume August 22, 2013 11:35am 84.6 UM3 N 80-100 Mean Platelet Volume August 22, 2013 11:35am 11.0 UM3 N 9.4-12.4 Monocytes # (Auto) March 15, 2013 7:15pm 0.6 T/MM3 N 0-0.8 Monocytes # (Manual) August 22, 2013 11:35am 0.9 T/MM3 H 0-0.8 Monocytes % (Manual) August 22, 2013 11:35am 6.0 % N 0-9.0 Monocytes (%) (Auto) March 15, 2013 7:15pm 6.3 % N 0-9.0 Neutrophils # (Auto) March 15, 2013 7:15pm 8.0 T/MM3 H 1.8-7.7 Neutrophils # (Manual) August 22, 2013 11:35am 11.6 T/MM3 H 1.8-7.7 Neutrophils % (Manual) August 22, 2013 11:35am 76.0 % H 33-66 Neutrophils (%) (Auto) March 15, 2013 7:15pm 78.8 % H 33-66 Ova and Parasites (LAB) May 08, 2012 9:45pm Sent out - CALL RESULTS TO DR. CARLSO Parathyroid Hormone (Intact) June 13, 2012 11:49am 42.7 PG/ML N 7.5- 53.5 Phosphorus Level June 13, 2012 11:49am 3.3 MG/DL N 2.5-4.5 Platelet Count August 22, 2013 11:35am 359 T/MM3 N 130-400 Potassium Level August 22, 2013 11:35am 3.7 MEQ/L N 3.6-5 RDW Standard Deviation August 22, 2013 11:35am 42.5 FL N 36.9-50.2 Red Blood Count August 22, 2013 11:35am 5.14 M/MM3 N 4.00-5.20 Sodium Level August 22, 2013 11:35am 142 MEQ/L N 134-144 Total Bilirubin August 22, 2013 11:35am 0.60 MG/DL N 0.20-1.30 Total Protein August 22, 2013 11:35am 7.7 G/DL N 6.3-8.2 Unconjugated Bilirubin April 23, 2012 1:15pm 0.10 MG/DL N 0.00-1.10 Uric Acid June 13, 2012 11:49am 6.8 MG/DL N 2.5-7.5 Urine Bacteria August 22, 2013 2:10pm 1+ H - Has specimen been collected/ obtained? Y Urine Bilirubin August 22, 2013 2:10pm Negative - Has specimen been collected/obtained? Y Urine Blood August 22, 2013 2:10pm Negative - Has specimen been collected/obtained? Y Urine Calcium 24 Hour June 17, 2012 6:30am 984.2 MG/24HR H 50-150 --- 06/18/12 0942 ---UCA24C previously reported as: Test not performed MG/24HR Urine Collection Type August 22, 2013 2:10pm Cleancatch-midstream - Has specimen been collected/obtained? Y Urine Color August 22, 2013 2:10pm Yellow - Has specimen been collected /obtained? Y Urine Creatinine June 17, 2012 6:30am 84.7 MG/DL - Urine Creatinine 24 Hour June 17, 2012 6:30am 1567 MG/24HR N 800-2800 Urine Culture Indicated March 15, 2013 7:15pm Cult reflexed &setup - Has specimen been collected/obtained? Y Urine Glucose (UA) August 22, 2013 2:10pm Negative - Has specimen been collected/obtained? Y Urine Ketones August 22, 2013 2:10pm Negative - Has specimen been collected/obtained? Y Urine Leukocyte Esterase August 22, 2013 2:10pm Negative - Has specimen been collected/obtained? Y Urine Mucus March 15, 2013 7:15pm Present - Has specimen been collected/obtained? Y Urine Nitrite August 22, 2013 2:10pm Negative - Has specimen been collected/obtained? Y Urine Phosphorus June 17, 2012 6:30am 76 MG/DL - Urine Phosphorus 24 Hour June 17, 2012 6:30am 1406 MG/24HR H 400-1300 Urine Test April 23, 2012 1:01pm Negative - Has specimen been collected/obtained? Y Urine Protein August 22, 2013 2:10pm 1+ H - Has specimen been collected/ obtained? Y Urine RBC August 22, 2013 2:10pm 0-1 /HPF - Has specimen been collected /obtained? Y Urine Sodium 24 Hour June 17, 2012 6:30am 298 MEQ/24HR H 40-220 Urine Sodium mEQ/L June 17, 2012 6:30am 161 MEQ/L - Urine Specific [place] August 22, 2013 2:10pm >=1.030 H - Has specimen been collected/obtained? Y Urine Squamous Epithelial Cells August 22, 2013 2:10pm >50 - Has specimen been collected/obtained? Y Urine Total Volume June 17, 2012 6:30am 1.850 L - Urine Turbidity August 22, 2013 2:10pm Sl cloudy - Has specimen been collected/obtained? Y Urine Uric Acid June 17, 2012 6:30am 55.2 MG/DL - Urine Uric Acid 24 Hour June 17, 2012 6:30am 1021.2 MG/24HR H 250.0- 750.0 Urine Urobilinogen August 22, 2013 2:10pm 0.2 EU/DL - Has specimen been collected/obtained? Y Urine WBC August 22, 2013 2:10pm 3-5 /HPF - Has specimen been collected /obtained? Y Urine pH August 22, 2013 2:10pm 6.0 - Has specimen been collected/ obtained? Y White Blood Count August 22, 2013 11:35am 15.2 T/MM3 H 4.5-11.0 Chemistry Specimen Hemolysis August 22, 2013 11:35am 103 H 0-25 0-25: No Hemolysis.26-70: Slight Hemolysis - can falsely elevate K and Urine Protein. 71-285: Moderate Hemolysis - can falsely elevate K, Troponin I, CA 19-9, PTH, CSF GLucose, and Urine Protein, and can falsely decrease Phenytoin. 286-999: Gross Hemolysis - can falsely elevate K, Troponin I, CA 19-9, PTH, CSF Glucose, and Urine Protine, and can falsely decrease Phenytoin. Recommend specimen recollection. Glucometer January 04, 2012 6:03am 82 mg/dL N 65-110 Lab Scanned Report June 17, 2012 11:14am LAB TEST FORM REQUEST [id number] - Urine Citrate Excretion Rate June 17, 2012 6:30am 475 mg/spec - Reference Range:228 - 1191 Urine Citrate Concentration June 17, 2012 6:30am 25.7 mg/dL - Test Performed by:[place] [address] Livestock Farm Manager: Jitendra Felder III, M.D. Citrate Excretion 24 hr urine performed at [facility], [address] [place] [address] Commodity Merchant Bradford Kaufman MD Urine Oxalate mmol/spec June 17, 2012 6:30am 0.09 mmol/spec L - Reference Range:0.11 - 0.46 Urine Calcium June 17, 2012 6:30am 53.2 MG/DL - --- 06/18/12 0942 - --UCA24T previously reported as: > 17.8 MG/DL Methicillin-Resist S.aureus DNA PCR June 06, 2012 10:05am Negative - Turbidity August 22, 2013 11:35am < 20 0-20 Reactive Lymphocytes % December 31, 2011 9:50pm 4.0 % H 0-0 Glomerular Filtration Rate Calc August 22, 2013 11:35am 143 - Reactive Lymphocytes # December 31, 2011 9:50pm 0.8 T/MM3 H 0-0 Immature Granulocyte # (Auto) March 15, 2013 7:15pm 0.02 T/MM3 N 0.00- 0.03 Immature Granulocyte % (Auto) March 15, 2013 7:15pm 0.2 % N 0.0-0.5 Icterus Index August 22, 2013 11:35am < 2 0-7 MRSA Specimen Source June 06, 2012 10:05am Nasal - Urine Oxalate mg/spec June 17, 2012 6:30am 7.9 mg/spec L - Reference Range:9.7 - 40.5 Urine Oxalate Concentration mmol/L June 17, 2012 6:30am 0.05 mmol/L - Urine Oxalate Concentration mg/L June 17, 2012 6:30am 4.4 mg/L - Test Performed by:[place] [address] Livestock Farm Manager: Jitendra Felder III, M.D. Oxalate, [place] [address] Commodity Merchant Bradford Kaufman MD Urine Microscopic Not Indicated December 31, 2011 11:15pm Not indicated - Has specimen been collected/obtained? Y C. difficile Toxin B Gene (PCR) May 08, 2012 9:45pm Negative - If Toxin A is clinically indicated, treat accordingly. Urine Total Volume (Citrate) June 17, 2012 6:30am 1850 mL - Citrate Excretion 24 [place] [address] Commodity Merchant Bradford Kaufman, Test Performed by: [place] [address] Livestock Farm Manager: Jitendra Felder III, M.D. Citrate Excretion 24 hr urine performed at [place] [address] Commodity Merchant Bradford Kaufman MD Citrate Excretion 24 [place] [address] Commodity Merchant Bradford Kaufman, --- 06/20/12 0032 --- CITVO previously reported as: 1850 Citrate Excretion 24 [place] [address] Commodity Merchant Bradford Kaufman, Test Performed by: [place] [address] Livestock Farm Manager: Jitendra Felder III, M.D. Citrate Excretion 24 [place] [address] Commodity Merchant Bradford Kaufman, Test Performed by: [place] [address] Livestock Farm Manager: Jitendra Felder III, M.D. Citrate Excretion 24 [place] [address] Commodity Merchant Bradford Kaufman MD Citrate Excretion 24 [place] [address] Commodity Merchant Bradford Kaufman, --- 06/20/12 0032 --- CITVO previously reported as: 1850 Citrate Excretion 24 [place] [address] Commodity Merchant Bradford Kaufman, --- 06/20/12 0040 --- CITVO previously reported as: 1850 mL Citrate Excretion 24 [place] [address] Commodity Merchant Bradford Kaufman, Test Performed by: [place] [id number] Livestock Farm Manager: Jitendra Felder III, M.D. Citrate Excretion 24 hr urine performed at [address] [address] Commodity Merchant Bradford Kaufman MD Citrate Excretion 24 [place] [address] Commodity Merchant Bradford Kaufman, --- 06/20/12 0032 --- CITVO previously reported as: 1850 Citrate Excretion 24 [place] [address] Commodity Merchant Bradford Kaufman, Urine Total Volume (Oxalate) June 17, 2012 6:30am 1850 mL - Oxalate , Urine performed [place], [place] [address]Avtjclr Director Bradford Kaufman, Test Performed by: [address] [address] Livestock Farm Manager: Jitendra Felder III, M.D. Oxalate, Urine performed at [address] [address] Commodity Merchant Bradford Kaufman MD Oxalate, [place] [address] Commodity Merchant Bradford Kaufman, --- 06/20/1236 --- OXAVOL previously reported as: 1850 Oxalate, [place] [address] Commodity Merchant Bradford Kaufman, Test Performed by: [place] [address] Livestock Farm Manager: Jitendra Felder III, M.D. Oxalate, [place] [address] Commodity Merchant Bradford Kaufman, Test Performed by: [place] [address] Livestock Farm Manager: Jitendra Felder III, M.D. Oxalate, [place] [address] Commodity Merchant Bradford Kaufman MD Oxalate, [place] [address] Commodity Merchant Bradford Kaufman, --- 06/20/1236 --- OXAVOL previously reported as: 1850 Oxalate, [place] [address] Commodity Merchant Bradford Kaufman, --- 06/20/1240 --- OXAVOL previously reported as: 1850 mL Oxalate, [place] [address] Commodity Merchant Bradford Kaufman, Test Performed by: [place] [address] Livestock Farm Manager: Jitendra Felder III, M.D. Oxalate, [place] [address] Commodity Merchant Bradford Kaufman MD Oxalate, [place] [address] Commodity Merchant Bradford Kaufman, --- 06/20/1236 --- OXAVOL previously reported as: 1850 Oxalate, [place] [address] Commodity Merchant Bradford Ham III R, U Collection Duration (Citrate) June 17, 2012 6:30am 24 - U Collection Duration (Oxalate) June 17, 2012 6:30am 24 - Blood Culture Blood December 31, 2011 10:15pm NO GROWTH AFTER 5 DAYS Stool Culture Stool May 08, 2012 9:45pm Urine Culture Urine, Voided-Not Cc-Midstream March 15, 2013 7:58pm Enterococ Faecalis - (Group D) Gram Stain Abdomen,Non-Surgical Site January 21, 2012 12:43pm Procedures Procedure Status Date Provider(s) THER/PROPH/DIAG INJ IV PUSH completed 08/22/13 TX/PRO/DX INJ NEW DRUG ADDON completed 08/22/13 TX/PRO/DX INJ SAME DRUG SOUBRETTE completed 08/22/13 HYDRATE IV INFUSION ADD-ON completed 08/22/13 Encounters Encounter Location Date/Time Departed Emergency Room [facility] 08/22/13 11:04am Recent Diagnosis
--- OUTSIDE RECORDS SUMMARY | 2016-06-12 22:35 | XMS REPORT | Referral Summary ---
Author Author [facility] Organization [facility] Address Unknown Phone Unavailable Care Team Providers Care Mixing Machine Operator Name Role Phone Jonathan Allen Primary Care Physician [phone] Encounter [facility] [id number] Date(s): 08/17/15 - 08/17/15 [facility] [address] [address] [facility] Discharge Diagnosis: DM (diabetes mellitus), type 2, uncontrolled Discharge Diagnosis: Hyperparathyroidism Discharge Disposition: 01-Home or Self Care Attending Physician: Romana Bolanos MD Admitting Physician: Romana Bolanos MD Vital Signs Most recent to 1 oldest [Reference Range]: Peripheral Pulse 78 bpm Rate [60-100 bpm] (08/17/15 9:28 AM) Blood Pressure 126/73 mmHg [90-140/60-90 mmHg] (08/17/15 9:28 AM) Problem List Condition Effective Dates Status Health Status Informant Abdominal Active pain(Confirmed) Anxiety(Confirmed) Resolved bladder Resolved spasms(Confirmed) Chronic low back Active pain(Confirmed) Chronic Active pain(Confirmed) DDD (degenerative Active disc disease), lumbar(Confirmed) depression(Confirmed Resolved ) diabetes(Confirmed) Resolved Endometriosis(Confir Resolved med) Hx of Kidney Resolved Stones(Confirmed) Hypercalcemia(Confir Active med) Increased white < 12/10/14 Resolved blood cell count(Confirmed) Lumbago(Confirmed) Active Lumbar [...] Daily, # 30 tabs, 5 Refill(s), Pharmacy: [facility] [place] # [id number], 1 tabs Oral Daily Start Date: 02/23/15 Status: Ordered amitriptyline 25 mg oral tablet See Instructions, TAKE 1 TABLET BY MOUTH EVERY EVENING AT BEDTIME, # 30 tabs, 5 Refill(s), eRx: [facility] #[id number], TAKE 1 TABLET BY MOUTH EVERY EVENING AT BEDTIME Start Date: 03/16/15 Status: Ordered chlorthalidone 50 mg oral tablet See Instructions, TAKE ONE TABLET BY MOUTH DAILY, # 30 tabs, 2 Refill(s), Pharmacy: [facility] #[id number], TAKE ONE TABLET BY MOUTH DAILY Start Date: 06/21/15 Status: Ordered hydrOXYzine hydrochloride 25 mg, Oral, BID, as needed for anxiety, 0 Refill(s) Start Date: 08/10/13 Status: Ordered metFORMIN 500 mg oral tablet, extended release See Instructions, TAKE TWO TABLETS BY MOUTH TWICE A DAY, # 120 tabs, 2 Refill(s) , Pharmacy: [facility] #[id number], TAKE TWO TABLETS BY MOUTH TWICE A DAY Start Date: 06/13/15 Status: Ordered Misc Prescription compound hormone BID, 0 Refill(s) Start Date: 08/22/13 Status: Ordered potassium citrate 15 mEq oral tablet, extended release See Instructions, TAKE 1 TABLET BY MOUTH TWICE EVERY DAY, # 60 unknown unit, 4 Refill(s), eRx: [facility] #[id number], TAKE 1 TABLET BY MOUTH TWICE EVERY DAY Start Date: 04/26/15 Status: Ordered sertraline 100 mg oral tablet mg tabs, Oral, Daily, 0 Refill(s) Start Date: 07/26/14 Status: Ordered Results Chemistry Most recent to 1 oldest [Reference Range]: Sodium Lvl [135-144 139 mEq/L mEq/L] (08/17/15 10:11 AM) Potassium Lvl 3.5 mEq/L [3.5-5.2 mEq/L] (08/17/15 10:11 AM) Chloride [99-111 103 mEq/L mEq/L] (08/17/15 10:11 AM) CO2 [22-31 mEq/L] 24 mEq/L (08/17/15 10:11 AM) AGAP [3-20] 12 (08/17/15 10:11 AM) BUN [7-19 mg/dL] 23 mg/dL *HI* (08/17/15 10:11 AM) Glucose Lvl [70-99 92 mg/dL mg/dL] (08/17/15 10:11 AM) Creatinine Lvl 0.73 mg/dL [0.57-1.11 mg/dL] (08/17/15 10:11 AM) eGFR [>60 mL/min] >60 mL/min 1 (08/17/15 10:11 AM) Calcium Lvl 9.9 mg/dL [8.9-10.5 mg/dL] (08/17/15 10:11 AM) Phosphorus [2.3-4.7 3.0 mg/dL mg/dL] (08/17/15 10:11 AM) PTH (Parathyroid 22.8 pg/mL Hormone) [6.6-88.9 (08/17/15 10:11 AM) pg/mL] Hgb A1c [4.1-5.6 %] 5.7 % *HI* (08/17/15 10:11 AM) eAvg Glucose 116.9 mg/dL (08/17/15 10:11 AM) 1Result Comment: Multiply eGFR results by 1.21 for race. Immunizations No data available for this section Procedures Procedure Date Related Diagnosis Body Site Collection of venous blood by venipuncture 08/17/15 Left L5-S1 Translaminar 12/08/13 Appendectomy Colonoscopy1 Hernia Hysterectomy Infection wound vac- post surgery Multiple Surgeries SIVA/BSO Tonsillectomy 1Old Records reviewed. Done by Dr. perez in [place]. 03/31/09. NEG except "diminutive" polyps x2 - [...] 06/27/14 Assessment and Plan Extracted from: Title: Consult Note Author: Romana Bolanos MD Date: 08/17/15 Assessment/Plan 1-diabetes type 2 : check a1c today adjust meds accordingly 2-recurrent kidney stones with hypercalcemia: i think this is primary hyperpara studies were done while patient was on chlorthalidone, which makes them inaccurate i will get a parathyroid scan if abnormal, will send to surgery if normal, i would stop chlorthalidone for 1 month and then repeat all studies rtc in 6 months
--- OUTSIDE RECORDS SUMMARY | 2016-06-12 22:35 | XMS REPORT | Referral Summary ---
Author Organization Unknown Address Unknown Phone Unavailable Care Team Providers Care Radiation Therapy Technician Name Role Phone Jaziel Maynard Primary Care Physician [phone] Encounter [facility] Date(s): 04/22/14 - 04/22/14 [facility] [place] [address] [place] [address] DAIN Mccarthy [id number] Discharge Diagnosis: Abnormal ultrasound of thyroid gland Discharge Diagnosis: Fever Discharge Diagnosis: Abdominal pain Discharge Disposition: Home or Self Care Attending Physician: Rafal Maynard MD Admitting Physician: Rafal Maynard MD Vital Signs Most recent to 1 oldest [Reference Range]: Temperature Tympanic 37.3 degC [36.6-38.1 degC] (04/22/14 2:05 PM) Peripheral Pulse 100 bpm Rate [60-100 bpm] (04/22/14 2:05 PM) Blood Pressure 125/90 mmHg [90-140/60-90 mmHg] (04/22/14 2:05 PM) Problem List Condition Effective Dates Status Health Status Informant Abdominal Active pain(Confirmed) Anxiety(Confirmed) Resolved bladder Resolved spasms(Confirmed) Chronic Active pain(Confirmed) depression(Confirmed Resolved ) diabetes(Confirmed) Resolved Endometriosis(Confir Resolved med) Hx of Kidney Resolved Stones(Confirmed) Hypercalcemia(Confir Active med) Lumbago(Confirmed) Active Metabolic Resolved syndrome(Confirmed) Morbid Active patient obesity(Confirmed) Obesity(Confirmed) Resolved PCOS(Confirmed) Resolved Lumbar disc Active herniation(Confirmed ) Stomach Resolved ulcer(Confirmed) Thoracic or Active lumbosacral neuritis or radiculitis, unspecified(Confirme d) Thoracic Active spondylosis(Confirme d) Tobacco Active use(Confirmed) Type 2 diabetes Active mellitus(Confirmed) Varicella Resolved Zoster(Confirmed) Allergies, Adverse Reactions, Alerts Substance Reaction Severity Status penicillin Eczema (rash) Active Rash Urticaria (hives) Medications Abilify 2 mg oral tablet 1 tabs, Oral, Daily, # 90 tabs, 0 Refill(s) Start Date: 6/2/14 Status: Ordered amitriptyline 25 mg oral tablet 1 tabs, Oral, Bedtime (once a day), # 30 tabs, 1 Refill(s), Pharmacy: [facility] #[id number], 1 tabs Oral Bedtime (once a day) Start Date: 01/20/14 Status: Ordered amitriptyline 25 mg oral tablet See Instructions, TAKE 1 TABLET BY MOUTH EVERY EVENING AT BEDTIME, # 30 tabs, eRx: [facility] #[id number], TAKE 1 TABLET BY MOUTH EVERY EVENING AT BEDTIME Special Instructions: TAKE 1 TABLET BY MOUTH EVERY EVENING AT BEDTIME Start Date: 03/29/14 Status: Ordered chlorthalidone 50 mg oral tablet 1 tabs, Oral, Daily, 0 Refill(s) Start Date: 08/10/13 Status: Ordered hydrOXYzine hydrochloride 25 mg, Oral, BID, as needed for anxiety, 0 Refill(s) Start Date: 08/10/13 Status: Ordered ibuprofen 800 mg oral tablet 1 tabs, Oral, BID, 0 Refill(s) Start Date: 08/10/13 Status: Ordered metFORMIN 500 mg oral tablet, extended release See Instructions, TAKE TWO TABLETS BY MOUTH TWICE A DAY, # 120 tabs, 7 Refill(s) , eRx: [facility] #[id number], TAKE TWO TABLETS BY MOUTH TWICE A DAY Special Instructions: TAKE TWO TABLETS BY MOUTH TWICE A DAY Start Date: 02/22/14 Status: Ordered [facility] [place] hormone BID, 0 Refill(s) Special Instructions: compound hormone BID Start Date: 08/22/13 Status: Ordered potassium citrate 15 mEq oral tablet, extended release 1 tabs, Oral, BID, # 60 tabs, 2 Refill(s), Pharmacy: [facility] #[id number], 1 tabs Oral BID Start Date: 01/20/14 Status: Ordered POTASSIUM CITRATE ER 15 MEQ TB See Instructions, TAKE 1 TABLET BY MOUTH TWICE EVERY DAY, # 60 unknown unit, 1 Refill(s), eRx: [facility] #[id number], TAKE 1 TABLET BY MOUTH TWICE EVERY DAY Special Instructions: TAKE 1 TABLET BY MOUTH TWICE EVERY DAY Start Date: 04/22/14 Status: Ordered sertraline 100 mg oral tablet 2 tabs, Oral, Daily, 0 Refill(s) Start Date: 08/10/13 Status: Ordered traMADol 50 mg oral tablet See Instructions, 2 tabs Oral at bedtime as needed. Must last until June 05., # 60 tabs, 0 Refill(s) Special Instructions: 2 tabs Oral at bedtime as needed. Must last until June 05. Start Date: 04/22/14 Stop Date: 05/20/14 Status: Ordered Results Hematology Most recent to 1 oldest [Reference Range]: WBC [4.8-10.8 K/uL] 16.0 K/uL *HI* (04/22/14 2:58 PM) RBC [4.00-5.20 M/uL] 5.15 M/uL (04/22/14 2:58 PM) Hgb [12.0-16.0 14.9 gm/dL gm/dL] (04/22/14 2:58 PM) Hct [37.0-47.0 %] 43.1 % (04/22/14 2:58 PM) MCV [82.0-99.0 fL] 83.7 fL (04/22/14 2:58 PM) MCH [27.0-32.0 pg] 28.9 pg (04/22/14 2:58 PM) MCHC [32.0-36.0 34.6 gm/dL gm/dL] (04/22/14 2:58 PM) RDW [11.5-14.5 %] 13.9 % (04/22/14 2:58 PM) Platelet [150-400 345 K/uL K/uL] (04/22/14 2:58 PM) MPV [8.8-14.8 fL] 11.6 fL (04/22/14 2:58 PM) Neutrophils [51-75 74 % %] (04/22/14 2:58 PM) Lymphocytes [20-46 16 % %] *LOW* (04/22/14 2:58 PM) Monocytes [4-11 %] 8 % (04/22/14 2:58 PM) Eosinophils [0-4 %] 2 % (04/22/14 2:58 PM) Basophils [0-2 %] 0 % (04/22/14 2:58 PM) Neutro Absolute 11.84 THOUS [1.90-7.00 THOUS] *HI* (04/22/14 2:58 PM) Lymph Absolute 2.56 THOUS [0.80-3.30 THOUS] (04/22/14 2:58 PM) [place] Absolute 1.28 THOUS [0.30-1.00 THOUS] *HI* (04/22/14 2:58 PM) Eos Absolute 0.32 THOUS [0.00-0.50 THOUS] (04/22/14 2:58 PM) Baso Absolute 0.00 THOUS [0.00-0.20 THOUS] (04/22/14 2:58 PM) Differential Manual *ABN* (04/22/14 2:58 PM) Sed Rate [0-23 12 mm/hr mm/hr] (04/22/14 2:58 PM) Urinalysis Most recent to 1 oldest [Reference Range]: UA Color Yellow (04/22/14 2:53 PM) UA Appear Clear (04/22/14 2:53 PM) UA pH [5.0-8.0] 7.5 (04/22/14 2:53 PM) UA Leuk Est Negative [Negative] (04/22/14 2:53 PM) UA Nitrite Negative [Negative] (04/22/14 2:53 PM) UA Protein Negative [Negative] (04/22/14 2:53 PM) UA Glucose Negative [Negative] (04/22/14 2:53 PM) UA Ketones Negative [Negative] (04/22/14 2:53 PM) UA Urobilinogen 0.2 mg/dL [<1.0 mg/dL] (04/22/14 2:53 PM) UA Bili [Negative] Negative (04/22/14 2:53 PM) UA Blood [Negative] Pos 2+ *ABN* (04/22/14 2:53 PM) UA Spec Grav 1.024 [1.003-1.030] (04/22/14 2:53 PM) Type Clean Catch (04/22/14 2:53 PM) UA WBC [0-4] 0-2 (04/22/14 2:53 PM) UA RBC [0-2 /HPF] >50 /HPF *ABN* (04/22/14 2:53 PM) Epithelial Cells 0-2 (04/22/14 2:53 PM) Immunizations No data available for this section Procedures Procedure Date Related Diagnosis Body Site Left L5-S1 Translaminar 12/08/13 Appendectomy Hernia Hysterectomy Infection wound vac- post surgery Multiple Surgeries SIVA/BSO Tonsillectomy Social History Social History Type Response Smoking Status Current every day smoker; Type: Cigarettes; Tobacco use per day: 1 Pack; Number of years: 13 Assessment and Plan Extracted from: Title: Office Visit Note Author: Rafal Maynard MD Date: 04/22/14 Assessment/Plan Abdominal pain Chronic pain. Continue current medications. She does mention that and May she plans to go to [place] and is concerned that she will have a lot more pain in the travel process. That she could have a extra amount of tramadol during the time for that visit (perhaps 15-20 tablets extra is a one time exception. Request records regarding possible need for repeat colonoscopy. Ordered: CBC w/ Differential Occult Blood X 3, Stool Sedimentation Rate Urinalysis with Culture if Indicated Abnormal ultrasound of thyroid gland Repeat thyroid ultrasound in September. Ordered: US Thyroid Fever Uncertain if these are truly fevers or not, but will do workup for inflammatory process. If this is negative. Follow-up in 3 months. Orders: traMADol, See Instructions, 2 tabs Oral at bedtime as needed. Must last until June 05., # 60 tabs, 0 Refill(s) Up as discussed above. Otherwise continue current therapy. She is following up with Yasemin Moreno later today regarding depression. She continues to work with an document review attorney on filing for disability. Follow-up with me in 3 months/sooner if needed.
--- OUTSIDE RECORDS SUMMARY | 2016-06-12 22:35 | XMS REPORT | Referral Summary ---
Author Author [facility] [place] Organization [facility] Address Unknown Phone Unavailable Care Team Providers Care Belting Inspector Name Role Phone Jaziel Maynard Primary Care Physician [phone] Encounter [facility] [id number] Date(s): 12/03/14 - 12/03/14 [facility] [place] [address] [place] Mcc[place] [id number]- Discharge Diagnosis: Homer-colored stools Discharge Disposition: 01-Home or Self Care Attending Physician: Samy Mendiola APRN Admitting Physician: Samy Mendiola APRN Vital Signs Most recent to 1 oldest [Reference Range]: Temperature Tympanic 37.3 degC [36.6-38.1 degC] (12/03/14 1:00 PM) Peripheral Pulse 72 bpm Rate [60-100 bpm] (12/03/14 1:00 PM) Respiratory Rate 18 br/min [14-20 br/min] (12/03/14 1:00 PM) Blood Pressure 124/92 mmHg [90-140/60-90 mmHg] (12/03/14 1:00 PM) Problem List Condition Effective Dates Status [...] Daily, # 30 tabs, 5 Refill(s), Pharmacy: [facility] # [id number], 1 tabs Oral Daily Start Date: 02/23/15 Status: Ordered amitriptyline 25 mg oral tablet See Instructions, TAKE 1 TABLET BY MOUTH EVERY EVENING AT BEDTIME, # 30 tabs, 5 Refill(s), eRx: [facility] #[id number], TAKE 1 TABLET BY MOUTH EVERY EVENING AT BEDTIME Start Date: 03/16/15 Status: Ordered chlorthalidone 50 mg oral tablet See Instructions, TAKE ONE TABLET BY MOUTH DAILY, # 30 tabs, 3 Refill(s), eRx: [facility] #[id number], TAKE ONE TABLET BY MOUTH DAILY Start Date: 02/22/15 Status: Ordered hydrOXYzine hydrochloride 25 mg, Oral, BID, as needed for anxiety, 0 Refill(s) Start Date: 08/10/13 Status: Ordered metFORMIN 500 mg oral tablet, extended release See Instructions, TAKE TWO TABLETS BY MOUTH TWICE A DAY, # 120 tabs, 2 Refill(s) , Pharmacy: [facility] #[id number], TAKE TWO TABLETS BY MOUTH TWICE A DAY Start Date: 06/13/15 Status: Ordered Misc Prescription compound hormone BID, 0 Refill(s) Start Date: 08/22/13 Status: Ordered potassium citrate 15 mEq oral tablet, extended release See Instructions, TAKE 1 TABLET BY MOUTH TWICE EVERY DAY, # 60 unknown unit, 4 Refill(s), eRx: [facility] #[id number], TAKE 1 TABLET BY MOUTH TWICE EVERY DAY Start Date: 04/26/15 Status: Ordered sertraline 100 mg oral tablet mg tabs, Oral, Daily, 0 Refill(s) Start Date: 07/26/14 Status: Ordered traMADol 50 mg oral tablet 100 mg 2 tabs, Oral, qPM, as needed for pain, n kenna, # 60 tabs, 0 Refill(s) Start Date: 05/24/15 Status: Ordered Results Hematology Most recent to 1 oldest [Reference Range]: WBC [4.8-10.8 14.3 10*3/uL 10*3/uL] *HI* (12/03/14 1:39 PM) RBC [4.00-5.20] 5.13 (12/03/14 1:39 PM) Hgb [12.0-16.0 14.9 gm/dL gm/dL] (12/03/14 1:39 PM) Hct [37.0-47.0 %] 43.2 % (12/03/14 1:39 PM) MCV [82.0-99.0 fL] 84.2 fL (12/03/14 1:39 PM) MCH [27.0-32.0 pg] 29.0 pg (12/03/14 1:39 PM) MCHC [32.0-36.0 34.5 gm/dL gm/dL] (12/03/14 1:39 PM) RDW [11.5-14.5 %] 14.1 % (12/03/14 1:39 PM) Platelet [150-400 381 10*3/uL 10*3/uL] (12/03/14 1:39 PM) MPV [8.8-14.8 fL] 12.4 fL (12/03/14 1:39 PM) Immature 0.3 % Granulocytes (12/03/14 1:39 PM) [0.0-1.0 %] Neutrophils [51-75 63 % %] (12/03/14 1:39 PM) Lymphocytes [20-46 27 % %] (12/03/14 1:39 PM) Monocytes [4-11 %] 8 % (12/03/14 1:39 PM) Eosinophils [0-4 %] 2 % (12/03/14 1:39 PM) Basophils [0-2 %] 1 % (12/03/14 1:39 PM) Neutro Absolute 8.96 10*3 [1.90-7.00 10*3] *HI* (12/03/14 1:39 PM) Lymph Absolute 3.78 10*3 [0.80-3.30 10*3] *HI* (12/03/14 1:39 PM) [place] Absolute 1.11 10*3 [0.30-1.00 10*3] *HI* (12/03/14 1:39 PM) Eos Absolute 0.32 10*3 [0.00-0.50 10*3] (12/03/14 1:39 PM) Baso Absolute 0.07 10*3 [0.00-0.20 10*3] (12/03/14 1:39 PM) Differential Scanned Slide (12/03/14 1:39 PM) Chemistry Most recent to 1 oldest [Reference Range]: Sodium Lvl [135-144 142 mEq/L mEq/L] (12/03/14 1:39 PM) Potassium Lvl 3.9 mEq/L [3.5-5.2 mEq/L] (12/03/14 1:39 PM) Chloride [99-111 103 mEq/L mEq/L] (12/03/14 1:39 PM) CO2 [22-31 mEq/L] 25 mEq/L (12/03/14 1:39 PM) AGAP [3-20] 14 (12/03/14 1:39 PM) BUN [7-19 mg/dL] 14 mg/dL (12/03/14 1:39 PM) Glucose Lvl [70-99 91 mg/dL mg/dL] (12/03/14 1:39 PM) Creatinine Lvl 0.71 mg/dL [0.57-1.11 mg/dL] (12/03/14 1:39 PM) eGFR [>60 mL/min] >60 mL/min 1 (12/03/14 1:39 PM) Calcium Lvl 10.8 mg/dL [8.9-10.5 mg/dL] *HI* (12/03/14 1:39 PM) Albumin Lvl [3.5-5.0 4.4 gm/dL gm/dL] (12/03/14 1:39 PM) Total Protein 7.1 gm/dL [6.4-8.3 gm/dL] (12/03/14 1:39 PM) Globulin [1.8-4.0 2.7 gm/dL gm/dL] (12/03/14 1:39 PM) ALT [0-55 U/L] 39 U/L (12/03/14 1:39 PM) AST [5-34 U/L] 39 U/L *HI* (12/03/14 1:39 PM) Alk Phos [40-150 56 U/L U/L] (12/03/14 1:39 PM) Bili Total [0.2-1.2 0.3 mg/dL mg/dL] (12/03/14 1:39 PM) 1Result Comment: Multiply eGFR results by 1.21 for race. Immunizations No data available for this section Procedures Procedure Date Related Diagnosis Body Site Collection of venous blood by venipuncture 12/03/14 Collection of venous blood by venipuncture 12/03/14 Collection of venous blood by venipuncture 12/03/14 Collection of venous blood by venipuncture 12/03/14 Left L5-S1 Translaminar 12/08/13 Appendectomy Colonoscopy1 Hernia Hysterectomy Infection wound vac- post surgery Multiple Surgeries SIVA/BSO Tonsillectomy 1Old Records reviewed. Done by Dr. perez in [place]. 03/31/09. NEG except "diminutive" polyps x2 - [...] Extracted from: Title: Office Visit Note Author: Samy Mendiola FERMENTER CHAMPAGNE Date: 12/03/14 Assessment/Plan Homer-colored stools The change in the color of her stools is essentially the only symptom that she is having at this time. She continues to struggle with chronic abdominal pain,but I'm not surethat the symptoms any worse at this time that it has been in the past. Due to her lack of abdominal pain and feverthink would be steve for usto do some basic lab workto investigate this a little further. I will order a CBCanda CMPto look for signs of infectionorany issue with her bile duct. She will have these drawn before she leaves the office today. All questions answered to apparent satisfaction. Orders: CBC w/ Differential Addendum I reviewed this chart, the patient's medical history, and the FERMENTER CHAMPAGNE' s documented findings, by Toby, and concur with the assessment and plan as above. Akbar WARE on December 07, 2014 18:51:16 CDT
--- OUTSIDE RECORDS SUMMARY | 2016-06-12 22:35 | XMS REPORT | Referral Summary ---
Author Author [facility] Organization [facility] Address Unknown Phone Unavailable Care Team Providers Care Keg Inspector Name Role Phone Alejocarrie Jaziel Primary Care Physician [phone] Encounter [facility] [id number] Date(s): 06/17/15 - 06/17/15 [facility] [address] [place], [place] [address] Discharge Disposition: 01-Home or Self Care Attending Physician: Eboni Rodriguez PA-C Admitting Physician: Eboni Rodriguez PA-C Vital Signs Most recent to 1 oldest [Reference Range]: Blood Pressure 116/74 mmHg [90-140/60-90 mmHg] (06/17/15 10:27 AM) Problem List Condition Effective Dates Status Health Status Informant Abdominal Active pain(Confirmed) Anxiety(Confirmed) Resolved bladder Resolved spasms(Confirmed) Chronic low back Active pain(Confirmed) Chronic Active pain(Confirmed) depression(Confirmed Resolved ) diabetes(Confirmed) Resolved Endometriosis(Confir Resolved med) Hx of Kidney Resolved Stones(Confirmed) Hypercalcemia(Confir Active med) Increased white < 10//15 Resolved blood cell count(Confirmed) Lumbago(Confirmed) Active Lumbar [...] Daily, # 30 tabs, 5 Refill(s), Pharmacy: [facility] # [id number], 1 tabs Oral Daily Start Date: 02/23/15 Status: Ordered amitriptyline 25 mg oral tablet See Instructions, TAKE 1 TABLET BY MOUTH EVERY EVENING AT BEDTIME, # 30 tabs, 5 Refill(s), eRx: [facility] #[id number], TAKE 1 TABLET BY MOUTH EVERY EVENING AT BEDTIME Start Date: 03/16/15 Status: Ordered chlorthalidone 50 mg oral tablet See Instructions, TAKE ONE TABLET BY MOUTH DAILY, # 30 tabs, 3 Refill(s), eRx: [facility] #[id number], TAKE ONE TABLET BY MOUTH DAILY Start Date: 02/22/15 Status: Ordered hydrOXYzine hydrochloride 25 mg, Oral, BID, as needed for anxiety, 0 Refill(s) Start Date: 08/10/13 Status: Ordered metFORMIN 500 mg oral tablet, extended release See Instructions, TAKE TWO TABLETS BY MOUTH TWICE A DAY, # 120 tabs, 2 Refill(s) , Pharmacy: [facility] #[id number], TAKE TWO TABLETS BY MOUTH TWICE A DAY Start Date: 06/13/15 Status: Ordered Misc Prescription compound hormone BID, 0 Refill(s) Start Date: 08/22/13 Status: Ordered potassium citrate 15 mEq oral tablet, extended release See Instructions, TAKE 1 TABLET BY MOUTH TWICE EVERY DAY, # 60 unknown unit, 4 Refill(s), eRx: [facility] #[id number], TAKE 1 TABLET BY MOUTH TWICE EVERY [...] Records reviewed. Done by Dr. perez in [place]. 03/31/09. NEG except "diminutive" polyps x2 - [...]
--- OUTSIDE RECORDS SUMMARY | 2016-06-12 22:35 | XMS REPORT | Referral Summary ---
Author Author [facility] Organization [facility] Address Unknown Phone Unavailable Care Team Providers Care Rubber Compounder Supervisor Name Role Phone Jonathan Allen Primary Care Physician [phone] Encounter [facility] [id number] Date(s): 01/05/16 - 01/06/16 [facility] [address] [place] [address] [phone] Discharge Disposition: 01-Home or Self Care Attending Physician: Brad West MD Admitting Physician: Brad West MD Vital Signs Most recent to 1 oldest [Reference Range]: Temperature Oral 37.0 degC [35.8-37.3 degC] (01/06/16 9:31 AM) Temperature Skin 36.5 degC [36-37 degC] (01/05/16 3:30 PM) Peripheral Pulse 94 bpm Rate [60-100 bpm] (01/06/16 9:31 AM) Heart Rate Monitored 101 bpm [60-100 bpm] *HI* (01/05/16 3:45 PM) Respiratory Rate 20 br/min [14-20 br/min] (01/06/16 9:31 AM) Blood Pressure 110/69 mmHg [90-140/60-90 mmHg] (01/06/16 9:31 AM) Mean Arterial 111 mmHg Pressure, Cuff (01/05/16 12:45 PM) SpO2 95 % (01/06/16 9:31 AM) Problem List Condition Effective Dates Status Health Status Informant Abdominal Active pain(Confirmed) Acute Active pain(Confirmed) Anxiety(Confirmed) Resolved At risk of pressure Active sore(Confirmed) bladder Resolved spasms(Confirmed) Chronic low back Active [...] 100 mg 1 tabs, Oral, Daily, # 90 tabs, 3 Refill(s), Pharmacy: [facility] # [id number], 1 tabs Oral Daily Start Date: 11/01/15 Status: Ordered amitriptyline 25 mg oral tablet See Instructions, TAKE 1 TABLET BY MOUTH EVERY EVENING AT BEDTIME, # 30 tabs, 5 Refill(s), eRx: [facility] #[id number], TAKE 1 TABLET BY MOUTH EVERY EVENING AT BEDTIME Start Date: 03/16/15 Status: Ordered chlorthalidone 50 mg oral tablet See Instructions, TAKE ONE TABLET BY MOUTH DAILY, # 90 tabs, 3 Refill(s), Pharmacy: [facility] #[id number], TAKE ONE TABLET BY MOUTH DAILY Start Date: 11/01/15 Status: Ordered clindamycin 300 mg oral capsule 300 mg 1 caps, Oral, q8hr, X 7 days, # 21 caps, 0 Refill(s), other reason (Rx) Start Date: 01/06/16 Stop Date: 01/13/16 Status: Ordered hydrOXYzine hydrochloride 25 mg, Oral, BID, as needed for anxiety, 0 Refill(s) Start Date: 08/10/13 Status: Ordered metFORMIN 500 mg oral tablet, extended release See Instructions, TAKE TWO TABLETS BY MOUTH TWICE A DAY, # 120 tabs, 4 Refill(s) , Pharmacy: [facility] #[id number], TAKE TWO TABLETS BY MOUTH TWICE A DAY Start Date: 09/13/15 Status: Ordered [facility] Pres[place] compound hormone BID, 0 Refill(s) Start Date: 08/22/13 Status: Ordered [place] 5 mg-325 mg oral tablet 1 tabs, Oral, q6hr, 0 Refill(s) Start Date: 01/05/16 Status: Ordered potassium citrate 15 mEq oral tablet, extended release See Instructions, TAKE ONE TABLET BY MOUTH TWICE A DAY, MUST CALL MD FOR APPOINTMENT, # 60 unknown unit, eRx: [facility] #[id number], TAKE ONE TABLET BY MOUTH TWICE A DAY, MUST CALL MD FOR APPOINTMENT Start Date: 10/31/15 Status: Ordered sertraline 100 mg oral tablet mg tabs, Oral, Daily, 0 Refill(s) Start Date: 07/26/14 Status: Ordered traMADol 100 mg/24 hours oral tablet, extended release 100 mg 1 tabs, Oral, BID, 0 Refill(s) Start Date: 01/05/16 Status: Ordered Results Hematology Most recent to 1 oldest [Reference Range]: WBC [4.8-10.8 13.8 10*3/uL 10*3/uL] *HI* (01/06/16 6:47 AM) RBC [4.00-5.20] 4.22 (01/06/16 6:47 AM) Hgb [12.0-16.0 12.0 gm/dL gm/dL] (01/06/16 6:47 AM) Hct [37.0-47.0 %] 35.4 % *LOW* (01/06/16 6:47 AM) MCV [82.0-99.0 fL] 83.9 fL (01/06/16 6:47 AM) MCH [27.0-32.0 pg] 28.4 pg (01/06/16 6:47 AM) MCHC [32.0-36.0 33.9 gm/dL gm/dL] (01/06/16 6:47 AM) RDW [11.5-14.5 %] 13.7 % (01/06/16 6:47 AM) Platelet [150-400 345 10*3/uL 10*3/uL] (01/06/16 6:47 AM) MPV [9.4-12.4 fL] 10.6 fL (01/06/16 6:47 AM) Immature 0.9 % Granulocytes (01/06/16 6:47 AM) [0.0-1.0 %] Neutrophils [51-75 73 % %] (01/06/16 6:47 AM) Lymphocytes [20-46 19 % %] *LOW* (01/06/16 6:47 AM) Monocytes [4-11 %] 7 % (01/06/16 6:47 AM) Eosinophils [0-4 %] 0 % (01/06/16 6:47 AM) Basophils [0-2 %] 0 % (01/06/16 6:47 AM) Neutro Absolute 10.10 10*3 [1.90-7.00 10*3] *HI* (01/06/16 6:47 AM) Lymph Absolute 2.56 10*3 [0.80-3.30 10*3] (01/06/16 6:47 AM) [place] Absolute 0.91 10*3 [0.30-1.00 10*3] (01/06/16 6:47 AM) Eos Absolute 0.06 10*3 [0.00-0.50 10*3] (01/06/16 6:47 AM) Baso Absolute 0.06 10*3 [0.00-0.20 10*3] (01/06/16 6:47 AM) Nucleated RBC 0.3 /100 WBC Automated [0 /100 (01/06/16 6:47 AM) WBC] Differential Scanned Slide (01/06/16 6:47 AM) Chemistry Most recent to 1 oldest [Reference Range]: Sodium Lvl [136-144 136 mEq/L mEq/L] (01/06/16 6:47 AM) Potassium Lvl 3.1 mEq/L 1 [3.6-5.1 mEq/L] *LOW* (01/06/16 6:47 AM) Chloride [99-109 102 mEq/L mEq/L] (01/06/16 6:47 AM) CO2 [22-32 mEq/L] 24 mEq/L (01/06/16 6:47 AM) AGAP [3-20] 10 (01/06/16 6:47 AM) BUN [4-20 mg/dL] 11 mg/dL (01/06/16 6:47 AM) Glucose Lvl [70-100 155 mg/dL mg/dL] *HI* (01/06/16 6:47 AM) Creatinine Lvl 0.71 mg/dL [0.44-1.03 mg/dL] (01/06/16 6:47 AM) eGFR [>60] >60 2 (01/06/16 6:47 AM) Calcium Lvl 8.6 mg/dL [8.6-10.0 mg/dL] (01/06/16 6:47 AM) Magnesium Lvl 1.9 mg/dL [1.8-2.5 mg/dL] (01/06/16 6:47 AM) Phosphorus [2.4-4.7 2.6 mg/dL 3 mg/dL] (01/06/16 6:47 AM) Blood Glucose, 154 mg/dL Capillary [74-106 *HI* mg/dL] (01/06/16 6:19 AM) 1Result Comment: Hemolyzed specimen. The following test may be affected: Potassium 2Result Comment: Multiply eGFR results by 1.21 for race. 3Result Comment: High dosages of liposomal Amphotericin B (AmBisome) therapy or other drug preparations that use a liposomal envelope to facilitate drug delivery may cause falsely elevated results for phosphorus. Microbiology Reports TEST: Wound Culture and Smear STATUS: Order in Progress BODY SITE: SOURCE: Surgical-Wound COLLECTED DATE/TIME: 01/05/16 1:40 PM Gram Smear Few (1-5/OIF) white blood cells No squamous epithelial cells No microorganisms observed OIF=Oil Immersion Field LPF=Low Power Field TEST: Fungus Culture & Calcofluor White Stain STATUS: Order in Progress BODY SITE: SOURCE: Surgical-Wound COLLECTED DATE/TIME: 01/05/16 1:40 PM Fungus Culture Culture in progress Immunizations No data available for this section Procedures Procedure Date Related Diagnosis Body Site Repair Hernia Inguinal1 01/05/16 Colonoscopy 07/14/14 Left L5-S1 Translaminar 12/08/13 Appendectomy Colonoscopy2 Hernia Hysterectomy Infection wound vac- post surgery Multiple Surgeries SIVA/BSO Tonsillectomy 1auto-populated from documented surgical case 2Old Records reviewed. Done by Dr. perez in [place]. 03/31/09. NEG except "diminutive" polyps x2 - [...]
--- OUTSIDE RECORDS SUMMARY | 2016-06-12 22:35 | XMS REPORT | Referral Summary ---
Author Author [facility] Organization [facility] Address Unknown Phone Unavailable Care Team Providers Care Sales Expert Home Theater Name Role Phone Jaziel Maynard Primary Care Physician [phone] Encounter VC Date(s): 07/27/14 - 07/27/14 [facility] [address] [place] [phone] Discharge Diagnosis: [...] BEDTIME, # 30 tabs, 1 Refill(s), eRx: [facility] #[id number], TAKE 1 TABLET BY MOUTH EVERY EVENING AT BEDTIME Start Date: 01/03/15 Status: Ordered cetirizine 10 mg oral tablet 10 mg 1 tabs, Oral, Daily, # 30 tabs, 3 Refill(s), Pharmacy: [facility] # [id number], 1 tabs Oral Daily Start Date: 12/03/14 Status: Ordered chlorthalidone 50 mg oral tablet 50 mg 1 tabs, Oral, Daily, # 30 tabs, 4 Refill(s), Pharmacy: [facility] # [id number], 1 tabs Oral Daily Start Date: 07/26/14 Status: Ordered Flomax mg, Oral, Daily, 0 Refill(s) Start Date: 11/18/14 Status: Ordered hydrOXYzine hydrochloride 25 mg, Oral, BID, as needed for anxiety, 0 Refill(s) Start Date: 08/10/13 Status: Ordered metFORMIN 500 mg oral tablet, extended release See Instructions, TAKE TWO TABLETS BY MOUTH TWICE A DAY, # 120 tabs, 2 Refill(s) , eRx: [facility] #[id number], TAKE TWO TABLETS BY MOUTH TWICE A DAY Start Date: 12/08/14 Status: Ordered [facility] Prescription compound hormone BID, 0 Refill(s) Start Date: 08/22/13 Status: Ordered potassium citrate 15 mEq oral tablet, extended release See Instructions, TAKE 1 TABLET BY MOUTH TWICE EVERY DAY, # 60 unknown unit, 5 Refill(s), eRx: [facility] #[id number], TAKE 1 TABLET BY MOUTH TWICE EVERY [...] Records reviewed. Done by Dr. perez in [place]. 03/31/09. NEG except "diminutive" polyps x2 - [...]
--- OUTSIDE RECORDS SUMMARY | 2016-06-12 22:35 | XMS REPORT | Referral Summary ---
Author Author [facility] Organization [facility] Address Unknown Phone Unavailable Care Team Providers Care [facility] Cook Name Role Phone Jaziel Maynard Primary Care Physician [phone] Encounter Date(s): 07/26/14 - 07/26/14 [facility] [address] [place] [id number] [facility] Discharge Diagnosis: Diabetes Discharge Disposition: [...] 1 Refill(s), eRx: [facility] #[id number], TAKE 1 TABLET BY MOUTH EVERY EVENING AT BEDTIME Start Date: 01/03/15 Status: Ordered cetirizine 10 mg oral tablet 10 mg 1 tabs, Oral, Daily, # 30 tabs, 3 Refill(s), Pharmacy: [facility] # [id number], 1 tabs Oral Daily Start Date: 12/03/14 Status: Ordered chlorthalidone 50 mg oral tablet 50 mg 1 tabs, Oral, Daily, # 30 tabs, 4 Refill(s), Pharmacy: [facility] # [id number], 1 tabs Oral Daily Start Date: 07/26/14 [...] Refill(s) , eRx: [facility] #[id number], TAKE TWO TABLETS BY MOUTH TWICE A DAY Start Date: 12/08/14 Status: Ordered Misc Prescription compound hormone BID, 0 Refill(s) Start Date: 08/22/13 Status: Ordered potassium citrate 15 mEq oral tablet, extended release See Instructions, TAKE 1 TABLET BY MOUTH TWICE EVERY DAY, # 60 unknown unit, 5 Refill(s), eRx: [facility] #[id number], TAKE 1 TABLET BY MOUTH TWICE EVERY [...] Records reviewed. Done by Dr. perez in [place]. 03/31/09. NEG except "diminutive" polyps x2 - [...] realistic goals. Your health care provider or vice president lending can help you make an activity plan [...] 10/28/2013 Document Reviewed: ExitCare Patient Information 2014 [place], [facility]. No follow up information was provided.
--- OUTSIDE RECORDS SUMMARY | 2016-06-12 22:35 | XMS REPORT | Referral Summary ---
Author Author [facility] Organization [facility] Address Unknown Phone Unavailable Care Team Providers Care Industrial Relations Analyst Name Role Phone Jaziel Maynard Primary Care Physician [phone] Encounter Date(s): 07/26/14 - 07/26/14 [facility] [address] [place] [address] [address] [facility] Discharge Diagnosis: Diabetes Discharge Disposition: [...] BEDTIME, # 30 tabs, 1 Refill(s), eRx: [facility] #[id number], TAKE 1 TABLET BY MOUTH EVERY EVENING AT BEDTIME Start Date: 01/03/15 Status: Ordered cetirizine 10 mg oral tablet 10 mg 1 tabs, Oral, Daily, # 30 tabs, 3 Refill(s), Pharmacy: [facility] # [id number], 1 tabs Oral Daily Start Date: 12/03/14 Status: Ordered chlorthalidone 50 mg oral tablet 50 mg 1 tabs, Oral, Daily, # 30 tabs, 4 Refill(s), Pharmacy: [facility] # [id number], 1 tabs Oral Daily Start Date: 07/26/14 Status: Ordered Flomax mg, Oral, Daily, 0 Refill(s) Start Date: 11/18/14 Status: Ordered hydrOXYzine hydrochloride 25 mg, Oral, BID, as needed for anxiety, 0 Refill(s) Start Date: 08/10/13 Status: Ordered metFORMIN 500 mg oral tablet, extended release See Instructions, TAKE TWO TABLETS BY MOUTH TWICE A DAY, # 120 tabs, 2 Refill(s) , eRx: [facility] #[id number], TAKE TWO TABLETS BY MOUTH TWICE A DAY Start Date: 12/08/14 Status: Ordered Misc Prescription compound hormone BID, 0 Refill(s) Start Date: 08/22/13 Status: Ordered potassium citrate 15 mEq oral tablet, extended release See Instructions, TAKE 1 TABLET BY MOUTH TWICE EVERY DAY, # 60 unknown unit, 5 Refill(s), eRx: [facility] #[id number], TAKE 1 TABLET BY MOUTH TWICE EVERY [...] Records reviewed. Done by Dr. perez in [place]. 03/31/09. NEG except "diminutive" polyps x2 - [...] realistic goals. Your health care provider or campaign consultant can help you make an activity plan [...] 10/28/2013 Document Reviewed: ExitCare Patient Information 2014 [employer], [facility]. No follow up information was provided.
--- OUTSIDE RECORDS SUMMARY | 2016-06-12 22:36 | XMS REPORT | Referral Summary ---
Author Author [facility] Medicine Organization [facility] Address Unknown Phone Unavailable Care Team Providers Care Licensed [employer] Real Estate Appraiser Name Role Phone Jaziel Maynard Primary Care Physician [phone] Encounter VC Date(s): 07/27/14 - 07/27/14 [facility] [address] [place] [phone] Discharge Diagnosis: [...] # 30 tabs, 1 Refill(s), eRx: [facility] #[id number], TAKE 1 TABLET BY MOUTH EVERY EVENING AT BEDTIME Start Date: 01/03/15 Status: Ordered cetirizine 10 mg oral tablet 10 mg 1 tabs, Oral, Daily, # 30 tabs, 3 Refill(s), Pharmacy: [facility] # [id number], 1 tabs Oral Daily Start Date: 12/03/14 Status: Ordered chlorthalidone 50 mg oral tablet 50 mg 1 tabs, Oral, Daily, # 30 tabs, 4 Refill(s), Pharmacy: [facility] # [id number], 1 tabs Oral Daily Start Date: 07/26/14 Status: Ordered Flomax mg, Oral, Daily, 0 Refill(s) Start Date: 11/18/14 Status: Ordered hydrOXYzine hydrochloride 25 mg, Oral, BID, as needed for anxiety, 0 Refill(s) Start Date: 08/10/13 Status: Ordered metFORMIN 500 mg oral tablet, extended release See Instructions, TAKE TWO TABLETS BY MOUTH TWICE A DAY, # 120 tabs, 2 Refill(s) , eRx: [facility] #[id number], TAKE TWO TABLETS BY MOUTH TWICE A DAY Start Date: 12/08/14 Status: Ordered Mis Prescription compound hormone BID, 0 Refill(s) Start Date: 08/22/13 Status: Ordered potassium citrate 15 mEq oral tablet, extended release See Instructions, TAKE 1 TABLET BY MOUTH TWICE EVERY DAY, # 60 unknown unit, 5 Refill(s), eRx: [facility] #[id number], TAKE 1 TABLET BY MOUTH TWICE EVERY [...] Records reviewed. Done by Dr. perez in [place]. 03/31/09. NEG except "diminutive" polyps x2 - [...]
--- OUTSIDE RECORDS SUMMARY | 2016-06-12 22:36 | XMS REPORT | Referral Summary ---
Author Author [facility] Organization [facility] Address Unknown Phone Unavailable Care Team Providers Care Photograph Enlarger Name Role Phone Jaziel Maynard Primary Care Physician [phone] Encounter [facility] [id number] Date(s): 06/03/15 - 06/03/15 [facility] [address] [facility] [address] Discharge Disposition: 01-Home or Self Care Attending Physician: Eboni Rodriguez PA-C Admitting Physician: Eboni Rodriguez PA-C Referring Physician: Rafal Maynard MD Vital Signs Most recent to 1 oldest [Reference Range]: Blood Pressure 128/88 mmHg [90-140/60-90 mmHg] (06/03/15 1:28 PM) Problem List Condition Effective Dates Status Health Status Informant Abdominal Active pain(Confirmed) Anxiety(Confirmed) Resolved bladder Resolved spasms(Confirmed) Chronic low back Active pain(Confirmed) Chronic Active pain(Confirmed) depression(Confirmed Resolved ) diabetes(Confirmed) Resolved Endometriosis(Confir Resolved med) Hx of Kidney Resolved Stones(Confirmed) Hypercalcemia(Confir Active med) Increased white < 10/2/15 Resolved blood cell count(Confirmed) Lumbago(Confirmed) Active Metabolic [...] Daily, # 30 tabs, 5 Refill(s), Pharmacy: [facility] # [id number], 1 tabs Oral Daily Start Date: 02/23/15 Status: Ordered amitriptyline 25 mg oral tablet See Instructions, TAKE 1 TABLET BY MOUTH EVERY EVENING AT BEDTIME, # 30 tabs, 5 Refill(s), eRx: [facility] #[id number], TAKE 1 TABLET BY MOUTH EVERY EVENING AT BEDTIME Start Date: 03/16/15 Status: Ordered chlorthalidone 50 mg oral tablet See Instructions, TAKE ONE TABLET BY MOUTH DAILY, # 30 tabs, 3 Refill(s), eRx: [facility] #[id number], TAKE ONE TABLET BY MOUTH DAILY Start Date: 02/22/15 Status: Ordered hydrOXYzine hydrochloride 25 mg, Oral, BID, as needed for anxiety, 0 Refill(s) Start Date: 08/10/13 Status: Ordered metFORMIN 500 mg oral tablet, extended release See Instructions, TAKE TWO TABLETS BY MOUTH TWICE A DAY, # 120 tabs, 0 Refill(s) , Pharmacy: [facility] #[id number], TAKE TWO TABLETS BY MOUTH TWICE A DAY Start Date: 05/11/15 Status: Ordered Misc Prescription compound hormone BID, 0 Refill(s) Start Date: 08/22/13 Status: Ordered potassium citrate 15 mEq oral tablet, extended release See Instructions, TAKE 1 TABLET BY MOUTH TWICE EVERY DAY, # 60 unknown unit, 4 Refill(s), eRx: [facility] #[id number], TAKE 1 TABLET BY MOUTH TWICE EVERY [...] Related Diagnosis Body Site Left L5-S1 Translaminar 9/30/14 Appendectomy Colonoscopy1 Hernia Hysterectomy Infection wound vac- post surgery Multiple Surgeries SIVA/BSO Tonsillectomy 1Old Records reviewed. Done by Dr. perez in [place]. 03/31/09. NEG except "diminutive" polyps x2 - [...]
--- OUTSIDE RECORDS SUMMARY | 2016-06-12 22:36 | XMS REPORT | Referral Summary ---
Author Organization Unknown Address Unknown Phone Unavailable Care Team Providers Care Clinical Research Nurse Coordinator Name Role Phone Jaziel Maynard Primary Care Physician [phone] Encounter [facility] [id number] Date(s): 04/14/14 - 04/14/14 Via TARAH Benites, [place], Endocrinology [address] [place] [address] [facility] Discharge Diagnosis: Type 2 diabetes mellitus Discharge Diagnosis: Hypercalcemia Discharge Diagnosis: Recurrent kidney stones Discharge Disposition: Home or Self Care Attending Physician: Makenna Lehman Admitting Physician: Makenna Lehman Referring Physician: Rafal Maynard MD Vital Signs Most recent to 1 oldest [Reference Range]: Peripheral Pulse 82 bpm Rate [60-100 bpm] (04/14/14 10:07 AM) Blood Pressure 110/80 mmHg [90-140/60-90 mmHg] (04/14/14 10:07 AM) Problem List Condition Effective Dates Status [...] day), # 30 tabs, 1 Refill(s), Pharmacy: [facility] #[id number], 1 tabs Oral Bedtime (once a day) Start Date: 01/20/14 Status: Ordered amitriptyline 25 mg oral tablet See Instructions, TAKE 1 TABLET BY MOUTH EVERY EVENING AT BEDTIME, # 30 tabs, eRx: [facility] #[id number], TAKE 1 TABLET BY MOUTH EVERY EVENING [...] # 120 tabs, 7 Refill(s) , eRx: [facility] #[id number], TAKE TWO TABLETS BY MOUTH TWICE A DAY Special Instructions: TAKE TWO TABLETS BY MOUTH TWICE A DAY Start Date: 02/22/14 Status: Ordered [facility] Prescription compound hormone BID, 0 Refill(s) Special Instructions: compound hormone BID Start Date: 08/22/13 Status: Ordered potassium citrate 15 mEq oral tablet, extended release 1 tabs, Oral, BID, # 60 tabs, 2 Refill(s), Pharmacy: [facility] #[id number], 1 tabs Oral BID Start Date: 01/20/14 Status: Ordered sertraline 100 mg oral tablet 2 tabs, Oral, Daily, 0 Refill(s) Start Date: 08/10/13 Status: Ordered traMADol 50 mg oral tablet 2 tabs, Oral, Daily, n dillons, # 60 tabs, 0 Refill(s) Special Instructions: n kenna Start Date: 03/16/14 Stop Date: 04/16/14 Status: Ordered Results Chemistry Most recent to 1 oldest [Reference Range]: Sodium Lvl [135-144 141 mEq/L mEq/L] (04/14/14 10:57 AM) Potassium Lvl 3.5 mEq/L [3.5-5.2 mEq/L] (04/14/14 10:57 AM) Chloride [99-111 103 mEq/L mEq/L] (04/14/14 10:57 AM) CO2 [22-31 mEq/L] 24 mEq/L (04/14/14 10:57 AM) AGAP [3-20] 14 (04/14/14 10:57 AM) BUN [7-19 mg/dL] 12 mg/dL (04/14/14 10:57 AM) Glucose Lvl [70-99 93 mg/dL mg/dL] (04/14/14 10:57 AM) Creatinine Lvl 0.62 mg/dL [0.57-1.11 mg/dL] (04/14/14 10:57 AM) eGFR [>60 mL/min] >60 mL/min 1 (04/14/14 10:57 AM) Calcium Lvl 9.8 mg/dL [8.9-10.5 mg/dL] (04/14/14 10:57 AM) Hgb A1c [4.1-5.6 %] 5.6 % (04/14/14 10:57 AM) eAvg Glucose 114.0 mg/dL (04/14/14 10:57 AM) 1Result Comment: Multiply eGFR results by 1.21 for race. Immunizations No data available for this section Procedures Procedure Date Related Diagnosis Body Site Collection of venous blood by venipuncture 04/14/14 Left L5-S1 Translaminar 12/08/13 Appendectomy Hernia Hysterectomy Infection wound vac- post surgery Multiple Surgeries SIVA/BSO Tonsillectomy Social History Social History Type Response Smoking Status Current every day smoker; Type: Cigarettes; Tobacco use per day: 1 Pack; Number of years: 13 Assessment and Plan Extracted from: Title: Office Visit Note Author: Makenna Lehman Date: 04/14/14 Assessment/Plan Hypercalcemia Ordered: 1,25-Dihydroxyvitamin D Level-[place] Angiotensin Converting Enzyme-[place] Vitamin D 25 Hydroxy Level Type 2 diabetes mellitus Ordered: Basic Metabolic Panel Hemoglobin A1c Orders: Calcium Level 24 Hour Urine Patient is here today for follow-up visit. Blood sugars per patient history not goal as her fasting numbers she states are consistently above 130. She is tolerating metformin extended release well without any abdominal discomfort or pain. Suggested she move her metformin all to evening slowly as tolerable to see if that will help with her fasting readings. She will continue checking blood sugars and call in for evaluation. She will continue monitoring diet and exercise as tolerable. She also has a history of recurrent kidney stones. She has passed 3 on her own since last visit. She continues on the chlorthalidone 50 mg a day. Primary hyperparathyroidism has been excluded with normal calcium ionized calcium and low parathyroid hormone levels. She's had a CT of the chest was unremarkable. Dr. Smalls recommended a repeat 24-hour urine vitamin D A's level and vitamin D 1, 25 and a BMP to evaluate her calcium levels. She continues following a low salt low fat low oxalate low protein low diet. She will call sooner if any problems or concerns. she will be notified of results. Extracted from: Title: Ambulatory Patient Education Author: Makenna Lehman Date: 04/14/14 Family Medicine Blood Sugar Monitoring, Adult GLUCOSE METERS FOR SELF-MONITORING OF BLOOD GLUCOSE It is important to be able to correctly measure your blood sugar (glucose ). You can use a blood glucose monitor (a small battery-operated device) to check your glucose level at any time. This allows you and your caregiver to monitor your diabetes and to determine how well your treatment plan is working. The process of monitoring your blood glucose with a glucose meter is called self- monitoring of blood glucose (SMBG). When people with diabetes control their blood sugar, they have better health. To test for glucose with a typical glucose meter, place the disposable strip in the meter. Then place a small sample of blood on the "test strip." The test strip is coated with chemicals that combine with glucose in blood. The meter measures how much glucose is present. The meter displays the glucose level as a number. Several new models can record and store a number of test results. Some models can connect to personal computers to store test results or print them out. Newer meters are often easier to use than older models. Some meters allow you to get blood from places other than your fingertip. Some new models have automatic timing, error codes, signals, or barcode readers to help with proper adjustment (calibration ). Some meters have a large display screen or spoken instructions for people with visual impairments. INSTRUCTIONS FOR USING GLUCOSE METERS Wash your hands with soap and warm water, or clean the area with alcohol. Dry your hands completely. Prick the side of your fingertip with a lancet (a sharp-pointed tool used by hand). Hold the hand down and gently milk the finger until a small drop of blood appears. Catch the blood with the test strip. Follow the instructions for inserting the test strip and using the SMBG meter. Most meters require the meter to be turned on and the test strip to be inserted before applying the blood sample. Record the test result. Read the instructions carefully for both the meter and the test strips that go with it. Meter instructions are found in the user manual. Keep this manual to help you solve any problems that may arise. Many meters use "error codes" when there is a problem with the meter, the test strip, or the blood sample on the strip. You will need the manual to understand these error codes and fix the problem. New devices are available such as laser lancets and meters that can test blood taken from "alternative sites" of the body, other than fingertips. However , you should use standard fingertip testing if your glucose changes rapidly. Also, use standard testing if: You have eaten, exercised, or taken insulin in the past 2 hours. You think your glucose is low. You tend to not feel symptoms of low blood glucose (hypoglycemia ). You are ill or under stress. Clean the meter as directed by the natural gas field processing supervisor. Test the meter for accuracy as directed by the natural gas field processing supervisor. Take your meter with you to your caregiver's office. This way, you can test your glucose in front of your caregiver to make sure you are using the meter correctly. Your caregiver can also take a sample of blood to test using a routine lab method. If values on the glucose meter are close to the lab results , you and your caregiver will see that your meter is working well and you are using good technique. Your caregiver will advise you about what to do if the results do not match. FREQUENCY OF TESTING Your caregiver will tell you how often you should check your blood glucose. This will depend on your type of diabetes, your current level of diabetes control, and your types of medicines. The following are general guidelines, but your care plan may be different. Record all your readings and the time of day you took them for review with your caregiver. Diabetes type 1. When you are using insulin with good diabetic control (either multiple daily injections or via a pump), you should check your glucose 4 times a day. If your diabetes is not well controlled, you may need to monitor more frequently, including before meals and 2 hours after meals, at bedtime, and occasionally between 2 a.m. and 3 a.m. You should always check your glucose before a dose of insulin or before changing the rate on your insulin pump. Diabetes type 2. Guidelines for SMBG in diabetes type 2 are not as well defined. If you are on insulin, follow the guidelines above. If you are on medicines, but not insulin, and your glucose is not well controlled, you should test at least twice daily. If you are not on insulin, and your diabetes is controlled with medicines or diet alone, you should test at least once daily, usually before breakfast. A weekly profile will help your caregiver advise you on your care plan. The week before your visit, check your glucose before a meal and 2 hours after a meal at least daily. You may want to test before and after a different meal each day so you and your caregiver can tell how well controlled your blood sugars are throughout the course of a 24 hour period. Gestational diabetes (diabetes during ). Frequent testing is often necessary. Accurate timing is important. If you are not on insulin, check your glucose 4 times a day. Check it before breakfast and 1 hour after the start of each meal. If you are on insulin, check your glucose 6 times a day. Check it before each meal and 1 hour after the first bite of each meal. General guidelines. More frequent testing is required at the start of insulin treatment. Your caregiver will instruct you. Test your glucose any time you suspect you have low blood sugar ( hypoglycemia ). You should test more often when you change medicines, when you have unusual stress or illness, or in other unusual circumstances. OTHER THINGS TO KNOW ABOUT GLUCOSE METERS Measurement Range. Most glucose meters are able to read glucose levels over a broad range of values from as low as 0 to as high as 600 mg/dL. If you get an extremely high or low reading from your meter, you should first confirm it with another reading. Report very high or very low readings to your caregiver. Whole Blood Glucose versus Plasma Glucose. Some older home glucose meters measure glucose in your whole blood. In a lab or when using some newer home glucose meters, the glucose is measured in your plasma (one component of blood) . The difference can be important. It is important for you and your caregiver to know whether your meter gives its results as "whole blood equivalent" or "plasma equivalent." Display of High and Low Glucose Values. Part of learning how to operate a meter is understanding what the meter results mean. Know how high and low glucose concentrations are displayed on your meter. Factors that Affect Glucose Meter Performance. The accuracy of your test results depends on many factors and varies depending on the brand and type of meter. These factors include: Low red blood cell count (anemia ). Substances in your blood (such as uric acid, vitamin C, and others). Environmental factors (temperature, humidity, altitude). Name-brand versus generic test strips. Calibration. Make sure your meter is set up properly. It is a good idea to do a calibration test with a control solution recommended by the natural gas field processing supervisor of your meter whenever you begin using a fresh bottle of test strips. This will help verify the accuracy of your meter. Improperly stored, , or defective test strips. Keep your strips in a dry place with the lid on. Soiled meter. Inadequate blood sample. NEW TECHNOLOGIES FOR GLUCOSE TESTING Alternative site testing Some glucose meters allow testing blood from alternative sites. These include the: Upper arm. Forearm. Base of the thumb. Thigh. Sampling blood from alternative sites may be desirable. However, it may have some limitations. Blood in the fingertips show changes in glucose levels more quickly than blood in other parts of the body. This means that alternative site test results may be different from fingertip test results, not because of the meter's ability to test accurately, but because the actual glucose concentration can be different. Continuous Glucose Monitoring Devices to measure your blood glucose continuously are available, and others are in development. These methods can be more expensive than self-monitoring with a glucose meter. However, it is uncertain how effective and reliable these devices are. Your caregiver will advise you if this approach makes sense for you. IF BLOOD SUGARS ARE CONTROLLED, PEOPLE WITH DIABETES REMAIN HEALTHIER. SMBG is an important part of the treatment plan of patients with diabetes mellitus. Below are reasons for using SMBG: It confirms that your glucose is at a specific, healthy level. It detects hypoglycemia and severe hyperglycemia. It allows you and your caregiver to make adjustments in response to changes in lifestyle for individuals requiring medicine. It determines the need for starting insulin therapy in temporary diabetes that happens during (gestational diabetes ). Document Released: 02/28/2004 Document Revised: 05/19/2012 Document Reviewed: [employer] Patient Information 2014 [employer], [facility]. No follow up information was provided.
--- OUTSIDE RECORDS SUMMARY | 2016-06-12 22:36 | XMS REPORT | Continuity of Care Document ---
Author Author [facility] Organization [facility] Address Unknown Phone Unavailable Care Team Providers Care Industrial Renderer Name Role Phone Pavel Villavicencio MD Primary Care Physician [phone] Insurance Providers Payer Name Policy Number Subscriber Name Relationship [id number] Ryder Steinberg 01 Problems Medical Problems Problem Onset Date Status Hematuria Unknown Active Medications Medication Dose Route Sig Days/Qty Instructions Order Date Discontinued Date Status Zolpidem Tartrate 10 Mg ORAL NEEDED 07/02/14 Active Acetaminophen/Hydrocodone Bitart 1 Tab ORAL NEEDED PRN PAIN Active Aripiprazole 5 Mg ORAL DAILY 07/02/14 Active Biotin 1 Mg ORAL DAILY 07/02/14 Active Chlorthalidone 50 Mg ORAL DAILY 07/02/14 Active [place] 3 Polyunsat Fatty Acids 1,000 Mg ORAL DAILY 07/02/14 Active Metformin Hcl (Glucophage) 1,000 Mg ORAL TWICE A DAY 07/02/14 Active Multivitamin 1 Each ORAL DAILY 07/02/14 Active Potassium Citrate 10 Meq ORAL TWICE A DAY 07/02/14 Active Tramadol Hcl 1-2 Tab ORAL NEEDED PRN PAIN 20 Qty 07/02/14 Active Vilazodone Hydrochloride 40 Mg ORAL DAILY 07/02/14 Active Social History No social history. Hospital Discharge Instructions No hospital discharge instructions. Plan of Care No plan of care. Functional Status No functional status results. Allergies, Adverse Reactions, Alerts Allergen Type Severity Reaction Status Last Updated Penicillin Allergy Unknown Active 06/04/14 Immunizations No immunization records. Vital Signs Acute Vital Signs Vital Response Date/Time Temperature (Fahrenheit) 97.9 Pulse 125 bpm Respirations 18 Height 5 ft 6 in Weight 266 lb Body Mass Index 42.9 kg/m^2 Results No known relevant diagnostic tests, laboratory data and/or discharge summary. Procedures No known history of procedures.
--- OUTSIDE RECORDS SUMMARY | 2016-06-12 22:36 | XMS REPORT | Referral Summary ---
Author Organization Unknown Address Unknown Phone Unavailable Care Team Providers Care Fiber Optic Central Office Installer Name Role Phone Jaziel Maynard Primary Care Physician [phone] Encounter [facility] Date(s): 05/13/14 - 05/13/14 Via TAR[facility] Benites, [place], Family Medicine [address] [place] [address] [facility]IN M[facility] [id number] Discharge Diagnosis: Abdominal pain Discharge Diagnosis: Hematuria Discharge Diagnosis: Chronic pain Discharge Diagnosis: Abnormal laboratory test result Discharge Disposition: Home or Self Care Attending Physician: Rafal Maynard MD Admitting Physician: Rafal Maynard MD Vital Signs Most recent to 1 oldest [Reference Range]: Peripheral Pulse 113 bpm Rate [60-100 bpm] *HI* (05/13/14 2:01 PM) Blood Pressure 110/80 mmHg [90-140/60-90 mmHg] (05/13/14 2:01 PM) Problem List Condition Effective Dates Status [...] day), # 30 tabs, 1 Refill(s), Pharmacy: [facility] #[id number], 1 tabs Oral Bedtime (once a day) Start Date: 01/20/14 Status: Ordered chlorthalidone 50 mg oral tablet 1 tabs, Oral, Daily, 0 Refill(s) Start Date: 08/10/13 Status: Ordered Cymbalta 30 mg oral delayed release capsule 2 caps, Oral, Daily, 0 Refill(s) Start Date: 05/13/14 Status: Ordered hydrOXYzine hydrochloride 25 mg, Oral, BID, as needed for anxiety, 0 Refill(s) Start Date: 08/10/13 Status: Ordered ibuprofen 800 mg oral tablet 1 tabs, Oral, BID, 0 Refill(s) Start Date: 08/10/13 Status: Ordered metFORMIN 500 mg oral tablet, extended release See Instructions, TAKE TWO TABLETS BY MOUTH TWICE A DAY, # 120 tabs, 7 Refill(s) , eRx: [facility] #[id number], TAKE TWO TABLETS BY MOUTH TWICE A DAY Special Instructions: TAKE TWO TABLETS BY MOUTH TWICE A DAY Start Date: 02/22/14 Status: Ordered Misc Prescription compound hormone BID, 0 Refill(s) Special Instructions: compound hormone BID Start Date: 08/22/13 Status: Ordered potassium citrate 15 mEq oral tablet, extended release 1 tabs, Oral, BID, # 60 tabs, 2 Refill(s), Pharmacy: [facility] #[id number], 1 tabs Oral BID Start Date: 01/20/14 Status: Ordered traMADol 50 mg oral tablet See Instructions, 2 tabs Oral at bedtime as needed. Must last until June 05., # 60 tabs, 0 Refill(s) Special Instructions: 2 tabs Oral at bedtime as needed. Must last until June 05. Start Date: 04/22/14 Stop Date: 05/20/14 Status: Ordered Results No data available for this section Immunizations No data available for this section Procedures Procedure Date Related Diagnosis Body Site Left L5-S1 Translaminar 12/08/13 Appendectomy Colonoscopy1 Hernia Hysterectomy Infection wound vac- post surgery Multiple Surgeries SIVA/BSO Tonsillectomy 1Old Records reviewed. Done by Dr. perez in [place]. 03/31/09. NEG except "diminutive" polyps x2 - path report showed hyperplastic ployps. Otherwise NEG. There was a coment that "other workup into the cause of her fatigue and persistent fever has been unrevealing." Social History Social History Type Response Smoking Status Current every day smoker; Type: Cigarettes; Tobacco use per day: 1 Pack; Number of years: 13 Assessment and Plan Extracted from: Title: Ambulatory Patient Education Author: Rafal Maynard MD Date: 05/13/14 Family Medicine Hematuria, Adult Hematuria (blood in your urine) can be caused by a bladder infection (cystitis ), kidney infection (pyelonephritis ), prostate infection (prostatitis ), or kidney stone. Infections will usually respond to antibiotics (medications which kill germs), and a kidney stone will usually pass through your urine without further treatment. If you were put on antibiotics, take all the medicine until gone. You may feel better in a few days, but take all of your medicine or the infection may not respond and become more difficult to treat. If antibiotics were not given, an infection did not cause the blood in the urine. A further work up to find out the reason may be needed. HOME CARE INSTRUCTIONS Drink lots of fluid, 3 to 4 quarts a day. If you have been diagnosed with an infection, cranberry juice is especially recommended, in addition to large amounts of water. Avoid caffeine, tea, and carbonated beverages, because they tend to irritate the bladder. Avoid alcohol as it may irritate the prostate. Only take hsbc-[id number]-vajlqso or prescription medicines for pain, discomfort, or fever as directed by your caregiver. If you have been diagnosed with a kidney stone follow your caregivers instructions regarding straining your urine to catch the stone. TO PREVENT FURTHER INFECTIONS: Empty the bladder often. Avoid holding urine for long periods of time. After a bowel movement, women should cleanse front to back. Use each tissue only once. Empty the bladder before and after sexual intercourse if you are a female. Return to your caregiver if you develop back pain, fever, nausea (feeling sick to your stomach), vomiting, or your symptoms (problems) are not better in 3 days. Return sooner if you are getting worse. If you have been requested to return for further testing make sure to keep your appointments. If an infection is not the cause of blood in your urine, X-rays may be required. Your caregiver will discuss this with you. SEEK IMMEDIATE MEDICAL CARE IF: You have a persistent fever over 102 F (38.9 C). You develop severe vomiting and are unable to keep the medication down. You develop severe back or abdominal pain despite taking your medications. You begin passing a large amount of blood or clots in your urine. You feel extremely weak or faint, or pass out. MAKE SURE YOU: Understand these instructions. Will watch your condition. Will get help right away if you are not doing well or get worse. Document Released: 02/25/2006 Document Revised: 05/19/2012 Document Reviewed: [facility] Patient Information 2014 [id number]. No follow up information was provided. Extracted from: Title: Office Visit Note Author: Rafal Maynard MD Date: 05/13/14 Assessment/Plan Abdominal pain Abnormal laboratory test result Positive Hemoccults of uncertain significance. We discussed that these could represent false positive test, or could be caused by bleeding anywhere within the GI tract. Some causes of this kind of bleeding might be right serious such as malignancy, while other causes may be trivial. It is reassuring that her hemoglobin remained stable. I suggested consideration of further workup and possible endoscopy, and we'll arrange consult with gastroenterology. Chronic pain Chronic pain syndrome is certainly causing dysfunction. Hematuria Uncertain significance. We'll refer back to urologist, Dr. Kathleen , for reevaluation. Addendum Time spent approximately 20 minutes, more than half of which was counseling. by Rafal Maynard MD on 13 May 2014 14:53:45 [employer]EE[employer] AND FORMER
--- OUTSIDE RECORDS SUMMARY | 2016-06-12 22:36 | XMS REPORT | Referral Summary ---
Author Author [facility] Organization [facility] Address Unknown Phone Unavailable Care Team Providers Care Paraeducator Name Role Phone Jonathan Allen Primary Care Physician [phone] Encounter [facility] [id number] Date(s): 08/10/15 - 08/10/15 [facility] [address] [place] [address] Discharge Diagnosis: Abdominal pain Discharge Disposition: 01-Home or Self Care Attending Physician: Mil Harry MD Admitting Physician: Mil Harry MD Referring Physician: Dipika Allen MD Vital Signs Most recent to 1 oldest [Reference Range]: Peripheral Pulse 118 bpm Rate [60-100 bpm] *HI* (08/10/15 4:00 PM) Blood Pressure 135/95 mmHg [90-140/60-90 mmHg] (08/10/15 4:00 PM) SpO2 97 % (08/10/15 4:00 PM) Problem List Condition Effective Dates Status [...] Daily, # 30 tabs, 5 Refill(s), Pharmacy: [facility] # [id number], 1 tabs Oral Daily Start Date: 02/23/15 Status: Ordered amitriptyline 25 mg oral tablet See Instructions, TAKE 1 TABLET BY MOUTH EVERY EVENING AT BEDTIME, # 30 tabs, 5 Refill(s), eRx: [facility] #[id number], TAKE 1 TABLET BY MOUTH EVERY EVENING AT BEDTIME Start Date: 03/16/15 Status: Ordered chlorthalidone 50 mg oral tablet See Instructions, TAKE ONE TABLET BY MOUTH DAILY, # 30 tabs, 2 Refill(s), Pharmacy: [facility] #[id number], TAKE ONE TABLET BY MOUTH DAILY Start Date: 06/21/15 Status: Ordered hydrOXYzine hydrochloride 25 mg, Oral, BID, as needed for anxiety, 0 Refill(s) Start Date: 08/10/13 Status: Ordered metFORMIN 500 mg oral tablet, extended release See Instructions, TAKE TWO TABLETS BY MOUTH TWICE A DAY, # 120 tabs, 2 Refill(s) , Pharmacy: [facility] #[id number], TAKE TWO TABLETS BY MOUTH TWICE A DAY Start Date: 06/13/15 Status: Ordered Misc Prescription compound hormone BID, 0 Refill(s) Start Date: 08/22/13 Status: Ordered potassium citrate 15 mEq oral tablet, extended release See Instructions, TAKE 1 TABLET BY MOUTH TWICE EVERY DAY, # 60 unknown unit, 4 Refill(s), eRx: [facility] #[id number], TAKE 1 TABLET BY MOUTH TWICE EVERY DAY Start Date: 04/26/15 Status: Ordered sertraline 100 mg oral tablet mg tabs, Oral, Daily, 0 Refill(s) Start Date: 07/26/14 Status: Ordered Results No data available for this section Immunizations No data available for this section Procedures Procedure Date Related Diagnosis Body Site Injection, anesthetic agent; other peripheral 08/10/15 nerve or branch.. Injection, anesthetic agent; other peripheral 08/10/15 nerve or branch.. Injection, anesthetic agent; other peripheral 08/10/15 nerve or branch.. Left L5-S1 Translaminar 12/08/13 Appendectomy Colonoscopy1 Hernia Hysterectomy Infection wound vac- post surgery Multiple Surgeries SIVA/BSO Tonsillectomy 1Old Records reviewed. Done by Dr. perez in [place]. 03/31/09. NEG except "diminutive" polyps x2 - [...]
--- OUTSIDE RECORDS SUMMARY | 2016-06-12 22:36 | XMS REPORT | Referral Summary ---
Author Author [facility] Organization [facility] Address Unknown Phone Unavailable Care Team Providers Care Tumbler Machine Operator Name Role Phone Jaziel Maynard Primary Care Physician [phone] Encounter [facility] Date(s): 07/27/14 - 07/27/14 [facility] [address] [place] [address] Discharge Diagnosis: [...] BEDTIME, # 30 tabs, 1 Refill(s), eRx: [facility] #[id number], TAKE 1 TABLET BY MOUTH EVERY EVENING AT BEDTIME Start Date: 01/03/15 Status: Ordered cetirizine 10 mg oral tablet 10 mg 1 tabs, Oral, Daily, # 30 tabs, 3 Refill(s), Pharmacy: [facility] # [id number], 1 tabs Oral Daily Start Date: 12/03/14 Status: Ordered chlorthalidone 50 mg oral tablet 50 mg 1 tabs, Oral, Daily, # 30 tabs, 4 Refill(s), Pharmacy: [facility] # [id number], 1 tabs Oral Daily Start Date: 07/26/14 Status: Ordered Flomax mg, Oral, Daily, 0 Refill(s) Start Date: 11/18/14 Status: Ordered hydrOXYzine hydrochloride 25 mg, Oral, BID, as needed for anxiety, 0 Refill(s) Start Date: 08/10/13 Status: Ordered metFORMIN 500 mg oral tablet, extended release See Instructions, TAKE TWO TABLETS BY MOUTH TWICE A DAY, # 120 tabs, 2 Refill(s) , eRx: [facility] #[id number], TAKE TWO TABLETS BY MOUTH TWICE A DAY Start Date: 12/08/14 Status: Ordered Mis Prescription compound hormone BID, 0 Refill(s) Start Date: 08/22/13 Status: Ordered potassium citrate 15 mEq oral tablet, extended release See Instructions, TAKE 1 TABLET BY MOUTH TWICE EVERY DAY, # 60 unknown unit, 5 Refill(s), eRx: [facility] #[id number], TAKE 1 TABLET BY MOUTH TWICE EVERY [...] Records reviewed. Done by Dr. perez in [place]. 03/31/09. NEG except "diminutive" polyps x2 - [...]
--- OUTSIDE RECORDS SUMMARY | 2016-06-12 22:36 | XMS REPORT | Referral Summary ---
Author Author [facility] Organization [facility] Address Unknown Phone Unavailable Care Team Providers Care Rn Anesthesiology Name Role Phone Jaziel Maynard Primary Care Physician [phone] Encounter Date(s): 07/26/14 - 07/26/14 [facility] [address] [place] [address] [address] [facility] Discharge Diagnosis: Diabetes Discharge Disposition: 01-Home or [...] # 30 tabs, 1 Refill(s), eRx: [facility] #[id number], TAKE 1 TABLET BY MOUTH EVERY EVENING AT BEDTIME Start Date: 01/03/15 Status: Ordered cetirizine 10 mg oral tablet 10 mg 1 tabs, Oral, Daily, # 30 tabs, 3 Refill(s), Pharmacy: [facility] # [id number], 1 tabs Oral Daily Start Date: 12/03/14 Status: Ordered chlorthalidone 50 mg oral tablet 50 mg 1 tabs, Oral, Daily, # 30 tabs, 4 Refill(s), Pharmacy: [facility] # [id number], 1 tabs Oral Daily Start Date: 07/26/14 Status: Ordered Flomax mg, Oral, Daily, 0 Refill(s) Start Date: 11/18/14 Status: Ordered hydrOXYzine hydrochloride 25 mg, Oral, BID, as needed for anxiety, 0 Refill(s) Start Date: 08/10/13 Status: Ordered metFORMIN 500 mg oral tablet, extended release See Instructions, TAKE TWO TABLETS BY MOUTH TWICE A DAY, # 120 tabs, 2 Refill(s) , eRx: [facility] #[id number], TAKE TWO TABLETS BY MOUTH TWICE A DAY Start Date: 12/08/14 Status: Ordered Misc Prescription compound hormone BID, 0 Refill(s) Start Date: 08/22/13 Status: Ordered potassium citrate 15 mEq oral tablet, extended release See Instructions, TAKE 1 TABLET BY MOUTH TWICE EVERY DAY, # 60 unknown unit, 5 Refill(s), eRx: [facility] #[id number], TAKE 1 TABLET BY MOUTH TWICE EVERY [...] Records reviewed. Done by Dr. perez in [place]. 03/31/09. NEG except "diminutive" polyps x2 - [...] realistic goals. Your health care provider or natural history collections curator can help you make an activity plan [...] 10/28/2013 Document Reviewed: ExitCare Patient Information 2014 [place], [facility]. No follow up information was provided.
--- OUTSIDE RECORDS SUMMARY | 2016-06-12 22:36 | XMS REPORT | Referral Summary ---
Author Author [facility] Organization [facility] Address Unknown Phone Unavailable Care Team Providers Care Machine Feed Operator Name Role Phone Jaziel Maynard Primary Care Physician [phone] Encounter [facility] Date(s): 07/27/14 - 07/27/14 [facility] [address] [place] [phone] Discharge Diagnosis: [...] BEDTIME, # 30 tabs, 1 Refill(s), eRx: [facility] #[id number], TAKE 1 TABLET BY MOUTH EVERY EVENING AT BEDTIME Start Date: 01/03/15 Status: Ordered cetirizine 10 mg oral tablet 10 mg 1 tabs, Oral, Daily, # 30 tabs, 3 Refill(s), Pharmacy: [facility] # [id number], 1 tabs Oral Daily Start Date: 12/03/14 Status: Ordered chlorthalidone 50 mg oral tablet 50 mg 1 tabs, Oral, Daily, # 30 tabs, 4 Refill(s), Pharmacy: [facility] # [id number], 1 tabs Oral Daily Start Date: 07/26/14 Status: Ordered Flomax mg, Oral, Daily, 0 Refill(s) Start Date: 11/18/14 Status: Ordered hydrOXYzine hydrochloride 25 mg, Oral, BID, as needed for anxiety, 0 Refill(s) Start Date: 08/10/13 Status: Ordered metFORMIN 500 mg oral tablet, extended release See Instructions, TAKE TWO TABLETS BY MOUTH TWICE A DAY, # 120 tabs, 2 Refill(s) , eRx: [facility] #[id number], TAKE TWO TABLETS BY MOUTH TWICE A DAY Start Date: 12/08/14 Status: Ordered Mis Prescription compound hormone BID, 0 Refill(s) Start Date: 08/22/13 Status: Ordered potassium citrate 15 mEq oral tablet, extended release See Instructions, TAKE 1 TABLET BY MOUTH TWICE EVERY DAY, # 60 unknown unit, 5 Refill(s), eRx: [facility] #[id number], TAKE 1 TABLET BY MOUTH TWICE EVERY [...] Records reviewed. Done by Dr. perez in [place]. 03/31/09. NEG except "diminutive" polyps x2 - [...]
--- OUTSIDE RECORDS SUMMARY | 2016-06-12 22:36 | XMS REPORT | Referral Summary ---
Author Author [facility] Organization [facility] Address Unknown Phone Unavailable Care Team Providers Care Title Manager Name Role Phone Jaziel Maynard Primary Care Physician [phone] Encounter Date(s): 07/26/14 - 07/26/14 [facility] [address] [address] [facility] [[email or web address] Discharge Diagnosis: Diabetes Discharge Disposition: 01-Home or Self Care Attending Physician: Geovany Samlls MD Admitting Physician: Geovany Smalls MD Vital [...] BEDTIME, # 30 tabs, 1 Refill(s), eRx: [facility] #[id number], TAKE 1 TABLET BY MOUTH EVERY EVENING AT BEDTIME Start Date: 01/03/15 Status: Ordered cetirizine 10 mg oral tablet 10 mg 1 tabs, Oral, Daily, # 30 tabs, 3 Refill(s), Pharmacy: [facility] # [id number], 1 tabs Oral Daily Start Date: 12/03/14 Status: Ordered chlorthalidone 50 mg oral tablet 50 mg 1 tabs, Oral, Daily, # 30 tabs, 4 Refill(s), Pharmacy: [facility] # [id number], 1 tabs Oral Daily Start Date: 07/26/14 Status: Ordered Flomax mg, Oral, Daily, 0 Refill(s) Start Date: 11/18/14 Status: Ordered hydrOXYzine hydrochloride 25 mg, Oral, BID, as needed for anxiety, 0 Refill(s) Start Date: 08/10/13 Status: Ordered metFORMIN 500 mg oral tablet, extended release See Instructions, TAKE TWO TABLETS BY MOUTH TWICE A DAY, # 120 tabs, 2 Refill(s) , eRx: [facility] #[id number], TAKE TWO TABLETS BY MOUTH TWICE A DAY Start Date: 12/08/14 Status: Ordered Misc Prescription compound hormone BID, 0 Refill(s) Start Date: 08/22/13 Status: Ordered potassium citrate 15 mEq oral tablet, extended release See Instructions, TAKE 1 TABLET BY MOUTH TWICE EVERY DAY, # 60 unknown unit, 5 Refill(s), eRx: [facility] #[id number], TAKE 1 TABLET BY MOUTH TWICE EVERY [...] Records reviewed. Done by Dr. perez in [place]. 03/31/09. NEG except "diminutive" polyps x2 - [...] realistic goals. Your health care provider or rn diabetes educator can help you make an activity [...] 10/28/2013 Document Reviewed: ExitCare Patient Information 2014 [place], [facility]. No follow up information was provided.
--- OUTSIDE RECORDS SUMMARY | 2016-06-12 22:36 | XMS REPORT | Continuity of Care Document ---
Author Author [facility] Organization [facility] Address Unknown Phone Unavailable Allergies Active Description Code Type Severity Reaction Onset Reported/Identified Relationship to Patient Clinical Status Yes Penicillins 476 Allergen Group moderate Hives / Skin Rash Yes No Known Intolerances No Known Intolerances Drug Allergy Mild N/A 10/26/2008 Yes Penicillins Penicillins Drug Allergy Moderate HIVES 10/26/2008 Yes Penicillins [id number] Drug Allergy Unknown N/A 06/04/2014 Medications Problems Date Dx Coded Attending Type Code Diagnosis Diagnosed By 06/02/2014 Gary Kathleen MD Ot 592.0 06/02/2014 Gary Kathleen MD Ot 592.0 06/02/2014 Ot 599.70 07/05/2014 Gary Kathleen MD Ot 305.1 07/05/2014 Gary Kathleen MD Ot 599.72 07/05/2014 Gary Kathleen MD Ot V16.52 10/06/2014 Gary Kathleen MD Ot 592.0 10/06/2014 Gary Kathleen MD Ot 592.0 10/06/2014 Ot 599.70 10/14/2014 Gary Kathleen MD Ot 592.0 10/14/2014 Gary Kathleen MD Ot 592.0 10/14/2014 Ot 599.70 10/14/2014 Gary Kathleen MD Ot 571.8 10/14/2014 Gary Kathleen MD Ot 591 10/14/2014 Gary Kathleen MD Ot 789.07 10/14/2014 Gary Kathleen MD Ot 592.0 10/14/2014 Gary Kathleen MD Ot 599.72 10/19/2014 Gary Kathleen 592.1 Calculus of ureter 10/19/2014 Gary Kathleen MD Ot 562.10 10/19/2014 Gary Kathleen MD Ot 592.0 10/19/2014 Gary Kathleen MD Ot 789.00 10/26/2014 Gary Kathleen MD Ot 571.8 10/26/2014 Gary Kathleen MD Ot 591 10/26/2014 Gary Kathleen MD Ot 789.07 10/26/2014 Gary Kathleen MD Ot 592.0 10/26/2014 Gary Kathleen MD Ot 599.72 11/01/2014 Gary Kathleen MD Ot 562.10 11/01/2014 Gary Kathleen MD Ot 592.0 11/01/2014 Gary Kathleen MD Ot 789.00 11/03/2014 Gary Kathleen MD Ot 592.0 11/03/2014 Gary Kathleen 592.1 Calculus of ureter 11/10/2014 Gary Kathleen MD Ot 592.0 11/10/2014 Gary Kathleen MD, Ot 592.0 11/10/2014 Ot 599.70 11/10/2014 Gary Kathleen MD Ot 571.8 11/10/2014 Gary Kathleen MD Ot 591 11/10/2014 Gary Kathleen MD Ot 789.07 11/10/2014 Gary Kathleen MD Ot 592.0 11/10/2014 Gary Kathleen MD Ot 599.72 11/10/2014 Gary Kathleen MD Ot 562.10 11/10/2014 Gary Kathleen MD Ot 592.0 11/10/2014 Gary Kathleen MD Ot 789.00 11/10/2014 Gary Kathleen MD Ot 592.0 11/26/2014 Gary Kathleen MD Ot 592.1 Procedures Results Test Result Range PLATELET COUNT - 04/12/16 09:36 PLATELET COUNT 314 k/cumm 150-400 PROTHROMBIN TIME WITH INR - 04/12/16 09:36 INTERNATIONAL NORMAL RATIO 0.9 0.9-1.1 PROTHROMBIN TIME 10.2 sec 10.0-12.9 PARTIAL THROMBOPLASTIN TIME - 04/12/16 09:36 PARTIAL THROMBOPLASTIN TIME 33 sec 25-37 Encounters ACCT No. Visit Date/Time Discharge Status Pt. Type Provider Facility Loc./Unit Complaint [id number] 02/10/2013 14:21:00 02/10/2013 23 :59:59 CLS Outpatient [id number] 01/06/2013 12:50:00 01/06/2013 23 :59:59 CLS Outpatient
--- OUTSIDE RECORDS SUMMARY | 2016-06-12 22:36 | XMS REPORT | Referral Summary ---
Author Author [facility] Organization [facility] Address Unknown Phone Unavailable Care Team Providers Care Survey And Mapping Technician Name Role Phone Kim Villavicencio Primary Care Physician [phone] Encounter [facility] [id number] Date(s): 04/04/16 - 04/04/16 [facility] [address] [address] [facility] Discharge Diagnosis: Vitamin D deficiency Discharge Diagnosis: Diabetes Discharge Diagnosis: Nephrolithiasis Discharge Disposition: 01-Home or Self Care Attending Physician: Romana Bolanos MD Admitting Physician: Romana Bolanos MD Vital Signs Most recent to 1 oldest [Reference Range]: Peripheral Pulse 85 bpm Rate [60-100 bpm] (04/04/16 10:48 AM) Blood Pressure 140/89 mmHg [90-140/60-90 mmHg] (04/04/16 10:48 AM) Problem List Condition Effective Dates Status [...] Daily, # 90 tabs, 3 Refill(s), Pharmacy: [facility] # [id number], 1 tabs Oral Daily Start Date: 11/01/15 Status: Ordered chlorthalidone 50 mg oral tablet See Instructions, TAKE ONE TABLET BY MOUTH DAILY, # 90 tabs, 3 Refill(s), Pharmacy: [facility] #[id number], TAKE ONE TABLET BY MOUTH DAILY Start Date: 11/01/15 Status: Ordered clonazePAM 0.5 mg oral tablet ty tabs, Oral, TID, 0 Refill(s) Start Date: 04/04/16 Status: Ordered metFORMIN 500 mg oral tablet, extended release See Instructions, TAKE TWO TABLETS BY MOUTH TWICE A DAY, # 120 tabs, 4 Refill(s) , Pharmacy: [facility] #[id number], TAKE TWO TABLETS BY MOUTH TWICE A DAY Start Date: 02/27/16 Status: Ordered Misc Prescription compound hormone BID, 0 Refill(s) Start Date: 08/22/13 Status: Ordered potassium citrate 15 mEq oral tablet, extended release See Instructions, TAKE ONE TABLET BY MOUTH TWICE A DAY, MUST CALL MD FOR APPOINTMENT, # 60 unknown unit, eRx: [facility] #[id number], TAKE ONE TABLET BY MOUTH TWICE A DAY, MUST CALL MD FOR APPOINTMENT Start Date: 10/31/15 Status: Ordered sertraline 100 mg oral tablet mg tabs, Oral, Daily, 0 Refill(s) Start Date: 07/26/14 Status: Ordered Tylenol with Codeine #3 tabs, Oral, q6hr, 0 Refill(s) Start Date: 04/04/16 Status: Ordered Results No data available for this section Immunizations No data available for this section Procedures Procedure Date Related Diagnosis Body Site Repair Hernia Inguinal1 01/05/16 Colonoscopy 07/14/14 Left L5-S1 Translaminar 12/08/13 Appendectomy Colonoscopy2 Hernia Hysterectomy Infection wound vac- post surgery Multiple Surgeries SIVA/BSO Tonsillectomy 1auto-populated from documented surgical case 2Old Records reviewed. Done by Dr. perez in [place]. 03/31/09. NEG except "diminutive" polyps x2 - [...]
--- OUTSIDE RECORDS SUMMARY | 2016-06-12 22:36 | XMS REPORT | Continuity of Care Document ---
Author Author Griselda Keating MA [facility] Ambulatory Address [address] [place] [address] Phone Unavailable Care Team Providers Care Pattern Duplicator Name Role Phone Rafal Maynard PP Unavailable Payers Payer name Insurance type Covered republican ID Authorization(s) Unknown Problems Condition Effective Dates (start - stop) Clinical Status Uvular edema - *Symptomatic Dysphagia - Improved Globus sensation - *Symptomatic Vomiting - Episodic Fever - *Chronic Recurrent kidney stones - *Chronic Abdominal pain, LLQ - Intermittent Globus syndrome - *Chronic Elevated blood pressure reading without diagnosis of hypertension - *Acute Fever - *Acute Abdominal pain, left lower quadrant - *Acute Conversion disorder - *Chronic Pharyngitis, Acute - *Acute PCOS (polycystic ovarian syndrome) - *Chronic Elevated blood pressure reading without diagnosis of hypertension - *Controlled Hypercalcemia - *Chronic Calculus of kidney - *Chronic Tobacco Abuse - *Chronic Calculus of kidney - Recurrent Otalgia of both ears - *Poor control Odynophagia - *Symptomatic Diabetes - *Fair Control Recurrent nephrolithiasis - *Uncontrolled PCOS (polycystic ovarian syndrome) - *Routine Hypercalciuria - *Chronic Diarrhea - *Acute Follicular tonsillitis - *Symptomatic Throat pain - *Symptomatic Otalgia - Episodic Hypercalcemia - *Symptomatic Acute tonsillitis - *Chronic Allergic rhinitis, cause unspecified - *Poor control Sore throat - Acute Exacerbation Acute tonsillitis - *Poor control Hypercalcemia - *Chronic Throat pain - *Poor control Hypercalciuria - *Chronic Family History Family Member Diagnosis Age At Onset Status Sister (Alive) 25 (Unknown) (Alive) (Unknown) Paternal grandmother (Alive) Cancer, bladder, Lymphoma 89 (Unknown) Father (Unknown) mult kidney stones Yes Mother (Alive) HBP, Diabetes 58 (Unknown) Paternal grandfather () Heart disease 81 (Unknown) Father (Alive) 61 (Unknown) Maternal grandmother (Alive) Liver cancer 76 (Unknown) Maternal grandfather (Alive) HBP, Spine issues 80 (Unknown) Social History Social History Element Description Quantity Unknown Allergies, Adverse Reactions, Alerts Substance Reaction Severity Status PENICILLINS Rash Unknown Medications Medication Instructions Dosage Effective Dates (start - stop) Status Medrol (Robert) 4 mg tablets in a dose pack take by Oral route as directed in pack. 0 - Active metformin 500 mg tablet take 1 tablet (500MG) by oral route 2 times every day with morning and evening meals 500 MG - Active POTASSIUM CITRATE (unknown strength) 10/80 MG BID - Active sertraline 100 mg tablet TAKE 1 100MG TAB IN AM , 50 MG AT NIGHT 2012 - Active Progesterone Compounded Crm (unknown strength) TAKES 1 TAB BID 2012 - Active Abilify 2 mg tablet TAKE ONE TAB DAILY - Active Ambien 10 mg tablet take 1 Tablet by Oral route every HS PRN - Active hydroxyzine HCl 25 mg tablet Take 1-2 tablets twice per day PRN for anxiety - Active fluticasone 50 mcg/actuation Nasal [place], Susp inhale 2 spray (100MCG) by intranasal route every day in each nostril 100 MCG - Active meloxicam 15 mg tablet take 1 tablet (15MG) by oral route every day 15 MG - Active metronidazole 500 mg tablet take 1 tablet (500MG) by oral route 3 times every day 500 MG - Active Lortab 5 mg-500 mg tablet take 1 tablet by oral route every 6 hours as needed for pain 0 - Active Immunizations Vaccine Date Status Comments Unknown Results Test Name Date and Time Measure Units Reference Range Abnormal Flag Comments Unknown Vital Signs Date / Time: Height Weight Pulse Rate Blood Pressure Temperature /14:21:00 66.00 in 270.00 lbs 97.2 F Procedures Procedure Date Unknown Encounters Encounter Location Date Patient Visit [facility] ENT Patient Visit [facility] Urology Patient Visit [facility] Patient Visit [facility] Patient [facility] Patient [facility] Patient Visit [facility] [place] [facility] [place] [facility] Patient Visit [facility] Patient Visit [facility] ASC Patient Visit [facility] Patient Visit [facility] Patient Visit [facility] ENT Patient Visit [facility] [place] Advance Directives Directive Effective Date Unknown
--- OUTSIDE RECORDS SUMMARY | 2016-06-12 22:37 | XMS REPORT | Referral Summary ---
Author Author [facility] Organization [facility] Address Unknown Phone Unavailable Care Team Providers Care Home Health Administrator Name Role Phone Jaziel Maynard Primary Care Physician [phone] Encounter Date(s): 07/14/14 - 07/14/14 [facility] [address] [id number] Discharge Diagnosis: Colon polyp Discharge Disposition: 01-Home [...] BEDTIME, # 30 tabs, 1 Refill(s), eRx: [facility] #[id number], TAKE 1 TABLET BY MOUTH EVERY EVENING AT BEDTIME Start Date: 01/03/15 Status: Ordered cetirizine 10 mg oral tablet 10 mg 1 tabs, Oral, Daily, # 30 tabs, 3 Refill(s), Pharmacy: [facility] # [id number], 1 tabs Oral Daily Start Date: 12/03/14 Status: Ordered chlorthalidone 50 mg oral tablet 50 mg 1 tabs, Oral, Daily, # 30 tabs, 4 Refill(s), Pharmacy: [facility] # [id number], 1 tabs Oral Daily Start Date: 07/26/14 Status: Ordered Flomax mg, Oral, Daily, 0 Refill(s) Start Date: 11/18/14 Status: Ordered hydrOXYzine hydrochloride 25 mg, Oral, BID, as needed for anxiety, 0 Refill(s) Start Date: 08/10/13 Status: Ordered metFORMIN 500 mg oral tablet, extended release See Instructions, TAKE TWO TABLETS BY MOUTH TWICE A DAY, # 120 tabs, 2 Refill(s) , eRx: [facility] #[id number], TAKE TWO TABLETS BY MOUTH TWICE A DAY Start Date: 12/08/14 Status: Ordered Misc Prescription compound hormone BID, 0 Refill(s) Start Date: 08/22/13 Status: Ordered potassium citrate 15 mEq oral tablet, extended release See Instructions, TAKE 1 TABLET BY MOUTH TWICE EVERY DAY, # 60 unknown unit, 5 Refill(s), eRx: [facility] #[id number], TAKE 1 TABLET BY MOUTH TWICE EVERY [...] Records reviewed. Done by Dr. perez in [place]. 03/31/09. NEG except "diminutive" polyps x2 - [...] Released: 11/21/2004 Document Revised: 05/19/2012 Document Reviewed: [facility] Patient Information 2014 [place]. No follow up information was provided.
--- OUTSIDE RECORDS SUMMARY | 2016-06-12 22:37 | XMS REPORT | Referral Summary ---
Author Author [facility] Medicine Organization [facility] Address Unknown Phone Unavailable Care Team Providers Care Network Control Operator Name Role Phone Jaziel Maynard Primary Care Physician [phone] Encounter [facility] Date(s): 07/27/14 - 07/27/14 [facility] [address] [place] [id number] Discharge Diagnosis: [...] BEDTIME, # 30 tabs, 1 Refill(s), eRx: [facility] #[id number], TAKE 1 TABLET BY MOUTH EVERY EVENING AT BEDTIME Start Date: 01/03/15 Status: Ordered cetirizine 10 mg oral tablet 10 mg 1 tabs, Oral, Daily, # 30 tabs, 3 Refill(s), Pharmacy: [facility] # [id number], 1 tabs Oral Daily Start Date: 12/03/14 Status: Ordered chlorthalidone 50 mg oral tablet 50 mg 1 tabs, Oral, Daily, # 30 tabs, 4 Refill(s), Pharmacy: [facility] # [id number], 1 tabs Oral Daily Start Date: 07/26/14 Status: Ordered Flomax mg, Oral, Daily, 0 Refill(s) Start Date: 11/18/14 Status: Ordered hydrOXYzine hydrochloride 25 mg, Oral, BID, as needed for anxiety, 0 Refill(s) Start Date: 08/10/13 Status: Ordered metFORMIN 500 mg oral tablet, extended release See Instructions, TAKE TWO TABLETS BY MOUTH TWICE A DAY, # 120 tabs, 2 Refill(s) , eRx: [facility] #[id number], TAKE TWO TABLETS BY MOUTH TWICE A DAY Start Date: 12/08/14 Status: Ordered Mis Prescription compound hormone BID, 0 Refill(s) Start Date: 08/22/13 Status: Ordered potassium citrate 15 mEq oral tablet, extended release See Instructions, TAKE 1 TABLET BY MOUTH TWICE EVERY DAY, # 60 unknown unit, 5 Refill(s), eRx: [facility] #[id number], TAKE 1 TABLET BY MOUTH TWICE EVERY [...] Records reviewed. Done by Dr. perez in [place]. 03/31/09. NEG except "diminutive" polyps x2 - [...]
--- OUTSIDE RECORDS SUMMARY | 2016-06-12 22:37 | XMS REPORT | Referral Summary ---
Author Organization Unknown Address Unknown Phone Unavailable Care Team Providers Care Regional Sales Trainer Name Role Phone Jaziel Maynard Primary Care Physician [phone] Encounter [facility] Date(s): 06/29/14 - 06/29/14 Via Tat[facility] [address] [place] [id number] Discharge Diagnosis: Heme positive stool Discharge Disposition: Home or Self Care Attending Physician: Caren Shah MD Admitting Physician: Caren Shah MD Referring Physician: Rafal Maynard MD Vital Signs Most recent to 1 oldest [Reference Range]: Peripheral Pulse 78 bpm Rate [60-100 bpm] (06/29/14 9:17 AM) Blood Pressure 122/80 mmHg [90-140/60-90 mmHg] (06/29/14 9:17 AM) Problem List Condition Effective Dates Status [...] EVENING AT BEDTIME, # 30 tabs, eRx: [facility] #[id number], TAKE 1 TABLET BY MOUTH EVERY EVENING AT BEDTIME Special Instructions: TAKE 1 TABLET BY MOUTH EVERY EVENING AT BEDTIME Start Date: 06/24/14 Status: Ordered Bentyl 10 mg oral capsule 1 caps, Oral, QID, Pain Moderate (4-6), # 60 caps, 0 Refill(s), Pharmacy: [facility] #[id number], 1 caps Oral QID,PRN:Pain Moderate (4-6) Start Date: 06/29/14 Status: Ordered chlorthalidone 50 mg oral tablet [...] # 120 tabs, 7 Refill(s) , eRx: [facility] #[id number], TAKE TWO TABLETS BY MOUTH TWICE A DAY Special Instructions: TAKE TWO TABLETS BY MOUTH TWICE A DAY Start Date: 02/22/14 Status: Ordered [facility] Pres[facility] compound hormone BID, 0 Refill(s) Special Instructions: compound hormone BID Start Date: 08/22/13 Status: Ordered Redford 5 mg-325 mg oral tablet 1 tabs, Oral, q6hr, as needed for pain, # 12 tabs, 0 Refill(s) Start Date: 06/01/14 Stop Date: 07/02/14 Status: Ordered NuLYTELY with Flavor Packs oral powder for reconstitution 240 mL, Oral, q15min, # 4,000 mL, 0 Refill(s), Pharmacy: [facility] # [id number] Start Date: 06/29/14 Status: Ordered potassium citrate 15 mEq oral tablet, extended release 1 tabs, Oral, BID, # 60 tabs, 2 Refill(s), Pharmacy: [facility] #[id number], 1 tabs Oral BID Start Date: 11/12/14 Status: Ordered potassium citrate 15 mEq oral tablet, extended release See Instructions, TAKE 1 TABLET BY MOUTH TWICE EVERY DAY, # 60 unknown unit, eRx: [facility] #[id number], TAKE 1 TABLET BY MOUTH TWICE EVERY DAY Special Instructions: TAKE 1 TABLET BY MOUTH TWICE EVERY DAY Start Date: 06/24/14 Status: Ordered traMADol 50 mg oral tablet 2 tabs, Oral, qPM, as needed for pain, TAKE 1 Q 6 HRS PRN WHILE ON TRIP N [place], # 80 tabs, 0 Refill(s) Special Instructions: TAKE 1 Q 6 HRS PRN WHILE ON TRIP N DILLONS Start Date: 06/17/14 Stop Date: 07/16/14 Status: Ordered Viibryd 40 mg oral tablet 1 tabs, Oral, Daily, 0 Refill(s) Start Date: 06/29/14 Status: Ordered Results No data available for this section Immunizations No data available for this section Procedures Procedure Date Related Diagnosis Body Site Left L5-S1 Translaminar 12/08/13 Appendectomy Colonoscopy1 Hernia Hysterectomy Infection wound vac- post surgery Multiple Surgeries SIVA/BSO Tonsillectomy 1Old Records reviewed. Done by Dr. perez in [place]. 03/31/09. NEG except "diminutive" polyps x2 [...] Extracted from: Title: Office Visit Note Author: Caren Shah MD Date: 06/29/14 Assessment/Plan 1.Heme positive stool The patient is a young woman who reports symptoms of crampy lower abdominal pain associated with alternating constipation and diarrhea that are very suggestive of irritable bowel syndrome. She also reports having hemorrhoids and sees occasional streaks of blood with hard stools. She reports that during the stool Hemoccult test her stools looked normal. She does have a significant history of NSAID use and it is possible she could have some ulcersin her GI tract that could be intermittentlyor slowly bleeding. Though patient isof younger age making serious underlying diseases like malignancy less likely,would recommendendoscopic evaluation with EGD and colonoscopy for evaluation of etiology of bleeding. Indication, risks andbenefitsof the procedure and sedation were explained to the patient in detail who verbalized understanding and wished to proceed with the procedure. Patient reports that her maternal grandmother had celiac disease and a lot of complications from it-pt and her mother reporthaving gluten sensitivity without full-blown celiac disease. She requests duodenal biopsies during the EGD to rule out celiac. 2. Abdominal pain- most likely from IBS given pattern of pain and bowel habits.I willprescribe bentyl for the crampy pain- start at 10mg and increase to 20mg if no relief. 3.Fatty liver: seen onon recent imaging. Counseled on need for weight loss. Patient says she is aware and is trying. She has lost 10 lbs in last few weeks.
--- OUTSIDE RECORDS SUMMARY | 2016-06-12 22:37 | XMS REPORT | Referral Summary ---
Author Author [facility]ology Organization [facility] Address Unknown Phone Unavailable Care Team Providers Care Chucking Machine Set Up Operator Tool Name Role Phone Jonathan Allen Primary Care Physician [phone] Encounter [facility] [id number] Date(s): 11/01/15 - 11/01/15 [facility] [address] [place] [address] [address] [facility] Discharge Diagnosis: Diabetes mellitus type 2 with complications, uncontrolled Discharge Disposition: 01-Home or Self Care Attending Physician: Romana Bolanos MD Admitting Physician: Romana Bolanos MD Vital Signs Most recent to 1 oldest [Reference Range]: Peripheral Pulse 69 bpm Rate [60-100 bpm] (11/01/15 3:26 PM) Blood Pressure 122/60 mmHg [90-140/60-90 mmHg] (11/01/15 3:26 PM) Problem List Condition Effective Dates Status Health Status Informant Abdominal Active pain(Confirmed) Anxiety(Confirmed) Resolved bladder Resolved spasms(Confirmed) Chronic low back Active pain(Confirmed) Chronic Active pain(Confirmed) DDD (degenerative Active disc disease), lumbar(Confirmed) depression(Confirmed Resolved ) diabetes(Confirmed) Resolved Endometriosis(Confir Resolved med) Hx of Kidney Resolved Stones(Confirmed) Hypercalcemia(Confir Active med) Increased white < 12/10/15 Resolved blood cell count(Confirmed) Lumbago(Confirmed) Active Lumbar [...] Daily, # 90 tabs, 3 Refill(s), Pharmacy: [facility] # [id number], 1 tabs Oral Daily Start Date: 11/01/15 Status: Ordered amitriptyline 25 mg oral tablet See Instructions, TAKE 1 TABLET BY MOUTH EVERY EVENING AT BEDTIME, # 30 tabs, 5 Refill(s), eRx: [facility] #[id number], TAKE 1 TABLET BY MOUTH EVERY EVENING AT BEDTIME Start Date: 03/16/15 Status: Ordered chlorthalidone 50 mg oral tablet See Instructions, TAKE ONE TABLET BY MOUTH DAILY, # 90 tabs, 3 Refill(s), Pharmacy: [facility] #[id number], TAKE ONE TABLET BY MOUTH DAILY Start Date: 11/01/15 Status: Ordered hydrOXYzine hydrochloride 25 mg, Oral, BID, as needed for anxiety, 0 Refill(s) Start Date: 08/10/13 Status: Ordered metFORMIN 500 mg oral tablet, extended release See Instructions, TAKE TWO TABLETS BY MOUTH TWICE A DAY, # 120 tabs, 4 Refill(s) , Pharmacy: [facility] #[id number], TAKE TWO TABLETS BY MOUTH TWICE A DAY Start Date: 09/13/15 Status: Ordered Misc Prescription compound hormone BID, 0 Refill(s) Start Date: 08/22/13 Status: Ordered potassium citrate 15 mEq oral tablet, extended release See Instructions, TAKE ONE TABLET BY MOUTH TWICE A DAY, MUST CALL MD FOR APPOINTMENT, # 60 unknown unit, eRx: [facility] #[id number], TAKE ONE TABLET BY MOUTH TWICE A [...] Records reviewed. Done by Dr. perez in [place]. 03/31/09. NEG except "diminutive" polyps x2 - [...]
--- OUTSIDE RECORDS SUMMARY | 2016-06-12 22:37 | XMS REPORT | Referral Summary ---
Author Author [facility], Family Medicine Organization [facility] Address Unknown Phone Unavailable Care Team Providers Care Sterile Preparation Technician Name Role Phone Jaziel Maynard Primary Care Physician [phone] Encounter [facility] [id number] Date(s): 12/10/14 - 12/10/14 [facility] [address] [place] [id number] Discharge Diagnosis: Increased white blood cell count Discharge Diagnosis: Acute URI Discharge Disposition: 01-Home or Self Care Attending Physician: Samy Mendiola APRN Admitting Physician: Samy Mendiola APRN Vital Signs Most recent to 1 oldest [Reference Range]: Temperature Tympanic 36.5 degC [36.6-38.1 degC] *LOW* (12/10/14 9:56 AM) Peripheral Pulse 72 bpm Rate [60-100 bpm] (12/10/14 9:56 AM) Respiratory Rate 18 br/min [14-20 br/min] (12/10/14 9:56 AM) Blood Pressure 110/72 mmHg [90-140/60-90 mmHg] (12/10/14 9:56 AM) Problem List Condition Effective Dates Status [...] Daily, # 30 tabs, 5 Refill(s), Pharmacy: [facility] # [id number], 1 tabs Oral Daily Start Date: 02/23/15 Status: Ordered amitriptyline 25 mg oral tablet See Instructions, TAKE 1 TABLET BY MOUTH EVERY EVENING AT BEDTIME, # 30 tabs, 5 Refill(s), eRx: [facility] #[id number], TAKE 1 TABLET BY MOUTH EVERY EVENING AT BEDTIME Start Date: 03/16/15 Status: Ordered chlorthalidone 50 mg oral tablet See Instructions, TAKE ONE TABLET BY MOUTH DAILY, # 30 tabs, 2 Refill(s), Pharmacy: [facility] #[id number], TAKE ONE TABLET BY MOUTH DAILY Start Date: 06/21/15 Status: Ordered hydrOXYzine hydrochloride 25 mg, Oral, BID, as needed for anxiety, 0 Refill(s) Start Date: 08/10/13 Status: Ordered metFORMIN 500 mg oral tablet, extended release See Instructions, TAKE TWO TABLETS BY MOUTH TWICE A DAY, # 120 tabs, 2 Refill(s) , Pharmacy: [facility] #[id number], TAKE TWO TABLETS BY MOUTH TWICE A DAY Start Date: 06/13/15 Status: Ordered Misc Prescription compound hormone BID, 0 Refill(s) Start Date: 08/22/13 Status: Ordered potassium citrate 15 mEq oral tablet, extended release See Instructions, TAKE 1 TABLET BY MOUTH TWICE EVERY DAY, # 60 unknown unit, 4 Refill(s), eRx: [facility] #[id number], TAKE 1 TABLET BY MOUTH TWICE EVERY [...] Records reviewed. Done by Dr. perez in [place]. 03/31/09. NEG except "diminutive" polyps x2 - [...] Title: Office Visit Note Author: Samy Mendiola TIMBER MANAGEMENT TECHNICIAN Date: 12/10/14 Assessment/Plan 1.Acute URI Due to her coughand abnormallung sounds on the right side a chest x-ray was performedand found to be negative of any acute process. At this time is my belief that this is probably a viral illness. Symptom reliefwas recommended. She was given a prescription for Tessalon Perles which she can use during the day to help relieve the symptoms of her cough. Additionally she was given codeine with guaifenesin cough syrupfor nighttime useas one of her zhang complaints was that the coughcaused her towake up at night. She was encouraged to follow-up with us after the weekendif things were not beginning to get better. All questions answered to apparent satisfaction. Cough Orders: benzonatate, 200 mg 1 caps, Oral, TID, X 7 days, # 21 caps, 0 Refill(s ), Pharmacy: [facility] #[id number], 1 caps Oral TID,x7 days codeine-guaiFENesin, 10 mL, Oral, q4hr, as needed for cough, # 240 mL, 0 Refill(s) Addendum I reviewed this chart, the patient's medical history, and the TIMBER MANAGEMENT TECHNICIAN' s documented findings, by Toby, and concur with the assessment and plan as above. Akbar WARE on December 11, 2014 07:42:33 CDT
--- OUTSIDE RECORDS SUMMARY | 2016-06-12 22:37 | XMS REPORT | Referral Summary ---
Author Author [facility] Organization [facility] Address Unknown Phone Unavailable Care Team Providers Care Correction Officer Reformatory Name Role Phone Jaziel Maynard Primary Care Physician [phone] Encounter Date(s): 07/26/14 - 07/26/14 [facility] [address] [address] [facility] Discharge Diagnosis: Diabetes Discharge Disposition: 01-Home [...] # 30 tabs, 1 Refill(s), eRx: [facility] #[id number], TAKE 1 TABLET BY MOUTH EVERY EVENING AT BEDTIME Start Date: 01/03/15 Status: Ordered cetirizine 10 mg oral tablet 10 mg 1 tabs, Oral, Daily, # 30 tabs, 3 Refill(s), Pharmacy: [facility] # [id number], 1 tabs Oral Daily Start Date: 12/03/14 Status: Ordered chlorthalidone 50 mg oral tablet 50 mg 1 tabs, Oral, Daily, # 30 tabs, 4 Refill(s), Pharmacy: [facility] # [id number], 1 tabs Oral Daily Start Date: 07/26/14 Status: Ordered Flomax mg, Oral, Daily, 0 Refill(s) Start Date: 11/18/14 Status: Ordered hydrOXYzine hydrochloride 25 mg, Oral, BID, as needed for anxiety, 0 Refill(s) Start Date: 08/10/13 Status: Ordered metFORMIN 500 mg oral tablet, extended release See Instructions, TAKE TWO TABLETS BY MOUTH TWICE A DAY, # 120 tabs, 2 Refill(s) , eRx: [facility] #[id number], TAKE TWO TABLETS BY MOUTH TWICE A DAY Start Date: 12/08/14 Status: Ordered Misc Prescription compound hormone BID, 0 Refill(s) Start Date: 08/22/13 Status: Ordered potassium citrate 15 mEq oral tablet, extended release See Instructions, TAKE 1 TABLET BY MOUTH TWICE EVERY DAY, # 60 unknown unit, 5 Refill(s), eRx: [facility] #[id number], TAKE 1 TABLET BY MOUTH TWICE EVERY [...] Records reviewed. Done by Dr. perez in [place]. 03/31/09. NEG except "diminutive" polyps x2 - [...] realistic goals. Your health care provider or visual educator can help you make an activity [...] 10/28/2013 Document Reviewed: [employer] Patient Information 2014 [employer], [facility]. No follow up information was provided.
--- OUTSIDE RECORDS SUMMARY | 2016-06-12 22:37 | XMS REPORT | Continuity of Care Document ---
Author Author Robbie Webb MA, [facility] Address Unknown Phone Unavailable Care Team Providers Care Cephalometric Technician Name Role Phone Rafal Maynard PP Unavailable Payers Payer name Insurance type Covered republican ID Authorization(s) Unknown Problems Condition Effective Dates (start - stop) Clinical Status Abdominal pain, LLQ - Intermittent Globus syndrome - *Chronic Fever - *Chronic Recurrent kidney stones - *Chronic Elevated blood pressure reading without diagnosis of hypertension - *Acute Fever - *Acute Abdominal pain, left lower quadrant - *Acute Conversion disorder - *Chronic Uvular edema - *Symptomatic Dysphagia - Improved Globus sensation - *Symptomatic Vomiting - Episodic Pharyngitis, Acute - *Acute PCOS (polycystic ovarian [...] Dosage Effective Dates (start - stop) Status Ambien 10 mg tablet take 1 Tablet by Oral route every HS PRN - Active hydroxyzine HCl 25 mg tablet Take 1-2 tablets twice per day PRN for anxiety - Active fluticasone 50 mcg/actuation Nasal [place], Susp inhale 2 spray (100MCG) by intranasal route every day in each nostril 100 MCG - Active meloxicam 15 mg tablet take 1 tablet (15MG) by oral route every day 15 MG - Active metformin 500 mg tablet take [...] tablet TAKE ONE TAB DAILY - Active metronidazole 500 mg tablet take 1 tablet (500MG) by oral route 3 times every day 500 MG - Active Lortab 5 mg-500 mg tablet take 1 tablet by oral route every 6 hours as needed for pain 0 - Active Medrol (Robert) 4 mg tablets in a dose pack take by Oral route as directed in pack. 0 - Active Immunizations Vaccine Date Status Comments Unknown Results Test Name Date and Time Measure Units Reference Range Abnormal Flag Comments Panel Description: Urinalysis with Reflex Microscopic Site. 13:57:00 Midstream Color 13:57:00 Dark Straw Clarity 13:57:00 Cloudy Volume Centrifuged 13:57:00 12 mls Specific [place]-C 13:57:00 1.015 1.005-1.025 pH-C 13:57:00 8 5.0-8.0 Leukocytes-C 13:57:00 neg Max/uL Negative Nitrites-C 13:57:00 neg Negative Protein-C 13:57:00 neg mg/dL Negative LN-Szotjrv-U 13:57:00 norm mg/dL Normal Ketones-C 13:57:00 neg mg/dL Negative Urobilinogen-C 13:57:00 norm mg/dL Normal Bilirubin-C 13:57:00 neg mg/dL Negative Blood-C 13:57:00 neg Anthony/uL Negative Panel Description: Culture If Indicated With Sensitivity Culture If Indicated With Sensitivity 13:57:00 No Culture Indicated Vital Signs Date / Time: Height Weight Pulse Rate Blood Pressure Temperature /12:56:00 66.00 in 277.50 lbs 88 /min 110/74 mm[Hg] 99.1 F Procedures Procedure Date Unknown Encounters Encounter Location Date Patient Visit [facility] Patient Visit [facility] New Urology Patient Visit [facility] Patient Visit [facility] Patient Visit [facility] ENT Patient Visit [facility] Patient Visit [facility] Urology Patient Visit [facility] E[facility] Patient Visit [facility] Patient Visit [facility] [place] Patient [facility] Patient Visit [facility] Patient Visit [facility] Patient Visit [facility] Patient [facility] Patient Visit [facility] ENT Patient Visit [facility] [place] Advance Directives Directive Effective Date Unknown
--- OUTSIDE RECORDS SUMMARY | 2016-06-12 22:37 | XMS REPORT | Referral Summary ---
Author Author [facility] Organization [facility] Address Unknown Phone Unavailable Care Team Providers Care Archival Records Clerk Name Role Phone Jaziel Maynard Primary Care Physician [phone] Encounter [facility] [id number] Date(s): 05/09/15 - 05/09/15 [facility] [address] [place] [phone] [place] Discharge Diagnosis: Chronic low back pain Discharge Disposition: 01-Home or Self Care Attending Physician: Rafal Maynard MD Admitting Physician: Rafal Maynard MD Vital Signs Most recent to 1 oldest [Reference Range]: Temperature Tympanic 37.1 degC [36.6-38.1 degC] (05/09/15 3:45 PM) Peripheral Pulse 80 bpm Rate [60-100 bpm] (05/09/15 3:45 PM) Blood Pressure 127/90 mmHg [90-140/60-90 mmHg] (05/09/15 3:45 PM) Problem List Condition Effective Dates Status [...] Daily, # 30 tabs, 5 Refill(s), Pharmacy: [facility] # [id number], 1 tabs Oral Daily Start Date: 02/23/15 Status: Ordered amitriptyline 25 mg oral tablet See Instructions, TAKE 1 TABLET BY MOUTH EVERY EVENING AT BEDTIME, # 30 tabs, 5 Refill(s), eRx: [facility] #[id number], TAKE 1 TABLET BY MOUTH EVERY EVENING AT BEDTIME Start Date: 03/16/15 Status: Ordered chlorthalidone 50 mg oral tablet See Instructions, TAKE ONE TABLET BY MOUTH DAILY, # 30 tabs, 3 Refill(s), eRx: [facility] #[id number], TAKE ONE TABLET BY MOUTH DAILY Start Date: 02/22/15 Status: Ordered hydrOXYzine hydrochloride 25 mg, Oral, BID, as needed for anxiety, 0 Refill(s) Start Date: 08/10/13 Status: Ordered metFORMIN 500 mg oral tablet, extended release See Instructions, TAKE TWO TABLETS BY MOUTH TWICE A DAY, # 120 tabs, 1 Refill(s) , eRx: [facility] #[id number], TAKE TWO TABLETS BY MOUTH TWICE A DAY Start Date: 03/08/15 Status: Ordered Misc Prescription compound hormone BID, 0 Refill(s) Start Date: 08/22/13 Status: Ordered potassium citrate 15 mEq oral tablet, extended release See Instructions, TAKE 1 TABLET BY MOUTH TWICE EVERY DAY, # 60 unknown unit, 4 Refill(s), eRx: [facility] #[id number], TAKE 1 TABLET BY MOUTH TWICE EVERY DAY Start Date: 04/26/15 Status: Ordered sertraline 100 mg oral tablet mg tabs, Oral, Daily, 0 Refill(s) Start Date: 07/26/14 Status: Ordered traMADol 50 mg oral tablet 100 mg 2 tabs, Oral, qPM, as needed for pain, n kenna, # 60 tabs, 0 Refill(s) Start Date: 04/21/15 Status: Ordered Results No data available for this section Immunizations No data available for this section Procedures Procedure Date Related Diagnosis Body Site Left L5-S1 Translaminar 12/08/13 Appendectomy Colonoscopy1 Hernia Hysterectomy Infection wound vac- post surgery Multiple Surgeries SIVA/BSO Tonsillectomy 1Old Records reviewed. Done by Dr. perez in [place]. 03/31/09. NEG except "diminutive" polyps x2 - [...] Visit Note Author: Rafal Maynard MD Date: 05/09/15 Assessment/Plan Chronic low back pain Ongoing low back pain that is not responding as well as she would like to physical therapy. I suggested a referral to Dr. Harry for reevaluation. We discussed doing another MRI. At this point I don't see either history or physical findings of radiculopathy and I'm not convinced that this adds a lot in terms of decision making right now. We discussed that. I advised that in most cases if we submitted such a request to the insurance company it would be denied without more specific criteria of radiculopathy. (I did advise that we would be willing to attempt to submitted if Dr. Harry requires that, but I think the best next step would be the consultation Addendum We reviewed the note from Dr. Hill and we'll try to help her arrange appointment with by Dr. Hill for four-month follow-up in early June. Rafal Maynard MD on May 09, 2015 19:23:15 DATA SECURITY CONSULTANT
--- OUTSIDE RECORDS SUMMARY | 2016-06-12 22:37 | XMS REPORT | Referral Summary ---
Author Author [facility] Organization [facility] Address Unknown Phone Unavailable Care Team Providers Care Embroidery Patternmaker Name Role Phone Jaziel Maynard Primary Care Physician [phone] Encounter 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 Discharge Diagnosis: H/O leukocytosis Discharge Diagnosis: Chronic low back pain Discharge Disposition: 01-Home or Self Care Attending Physician: Rafal Maynard MD Admitting Physician: Rafal Maynard MD Vital Signs Most recent to 1 oldest [Reference Range]: Temperature Tympanic 37.3 degC [36.6-38.1 degC] (03/14/15 4:12 PM) Peripheral Pulse 74 bpm Rate [60-100 bpm] (03/14/15 4:12 PM) Blood Pressure 122/80 mmHg [90-140/60-90 mmHg] (03/14/15 4:12 PM) Problem List Condition Effective Dates Status [...] Daily, # 30 tabs, 5 Refill(s), Pharmacy: [facility] # [id number], 1 tabs Oral Daily Start Date: 02/23/15 Status: Ordered amitriptyline 25 mg oral tablet See Instructions, TAKE 1 TABLET BY MOUTH EVERY EVENING AT BEDTIME, # 30 tabs, 1 Refill(s), eRx: [facility] #[id number], TAKE 1 TABLET BY MOUTH EVERY EVENING AT BEDTIME Start Date: 01/03/15 Status: Ordered chlorthalidone 50 mg oral tablet See Instructions, TAKE ONE TABLET BY MOUTH DAILY, # 30 tabs, 3 Refill(s), eRx: [facility] #[id number], TAKE ONE TABLET BY MOUTH DAILY Start Date: 02/22/15 Status: Ordered hydrOXYzine hydrochloride 25 mg, Oral, BID, as needed for anxiety, 0 Refill(s) Start Date: 08/10/13 Status: Ordered metFORMIN 500 mg oral tablet, extended release See Instructions, TAKE TWO TABLETS BY MOUTH TWICE A DAY, # 120 tabs, 1 Refill(s) , eRx: [facility] #[id number], TAKE TWO TABLETS BY MOUTH TWICE A DAY Start Date: 03/08/15 Status: Ordered Misc Prescription compound hormone BID, 0 Refill(s) Start Date: 08/22/13 Status: Ordered sertraline 100 mg oral tablet mg tabs, Oral, Daily, 0 Refill(s) Start Date: 07/26/14 Status: Ordered traMADol 50 mg oral tablet 100 mg 2 tabs, Oral, qPM, as needed for pain, n kenna, # 60 tabs, 0 Refill(s) Start Date: 02/24/15 Status: Ordered traMADol 50 mg oral tablet See Instructions, 1 tablet in AM as needed for pain, 2 tablets at HS. Maximum three per 24 hours. Prescription must last 30 days., # 90 tabs, 0 Refill(s) Start Date: 03/14/15 Stop Date: 04/13/15 Status: Ordered Results Chemistry Most recent to 1 oldest [Reference Range]: Potassium Lvl 3.8 mEq/L [3.5-5.2 mEq/L] (03/14/15 5:17 PM) Immunizations No data available for this section Procedures Procedure Date Related Diagnosis Body Site Left L5-S1 Translaminar 12/08/13 Appendectomy Colonoscopy1 Hernia Hysterectomy Infection wound vac- post surgery Multiple Surgeries SIVA/BSO Tonsillectomy 1Old Records reviewed. Done by Dr. perez in [place]. 03/31/09. NEG except "diminutive" polyps x2 - [...] Patient Education Author: Rafal Maynard MD Date: 03/14/15 Family Medicine Back Pain, Adult Low back pain is very common. About 1 in 5 people have back pain.The cause of low back pain is rarely dangerous. The pain often gets better over time.About half of people with a sudden onset of back pain feel better in just 2 weeks. About 8 in 10 people feel better by 6 weeks. CAUSES Some common causes of back pain include: Strain of the muscles or ligaments supporting the spine. Wear and tear (degeneration) of the spinal discs. Arthritis. Direct injury to the back. DIAGNOSIS Most of the time, the direct cause of low back pain is not known.However, back pain can be treated effectively even when the exact cause of the pain is unknown.Answering your caregiver's questions about your overall health and symptoms is one of the most accurate ways to make sure the cause of your pain is not dangerous. If your caregiver needs more information, he or she may order lab work or imaging tests (X-rays or MRIs).However, even if imaging tests show changes in your back, this usually does not require surgery. HOME CARE INSTRUCTIONS For many people, back pain returns.Since low back pain is rarely dangerous, it is often a condition that people can learn to manageon their own. Remain active. It is stressful on the back to sit or registration coordinator one place. Do not sit, drive, or registration coordinator one place for more than 30 minutes at a time. Take short walks on level surfaces as soon as pain allows.Try to increase the length of time you walk each day. Do not stay in bed.Resting more than 1 or 2 days can delay your recovery. Do not avoid exercise or work.Your body is made to move.It is not dangerous to be active, even though your back may hurt.Your back will likely heal faster if you return to being active before your pain is gone. Pay attention to your body when you bend and lift. Many people have less discomfortwhen lifting if they bend their knees, keep the load close to their bodies,and avoid twisting. Often, the most comfortable positions are those that put less stress on your recovering back. Find a comfortable position to sleep. Use a firm mattress and lie on your side with your knees slightly bent. If you lie on your back, put a pillow under your knees. Only take lryy-pjc-pesvvzb or prescription medicines as directed by your caregiver. Vlqe-zmq-ctdnnye medicines to reduce pain and inflammation are often the most helpful.Your caregiver may prescribe muscle relaxant drugs.These medicines help dull your pain so you can more quickly return to your normal activities and healthy exercise. Put ice on the injured area. Put ice in a plastic bag. Place a towel between your skin and the bag. Leave the ice on for 15-20 minutes, 03-04 times a day for the first 2 to 3 days. After that, ice and heat may be alternated to reduce pain and spasms. Ask your caregiver about trying back exercises and gentle massage. This may be of some benefit. Avoid feeling anxious or stressed.Stress increases muscle tension and can worsen back pain.It is important to recognize when you are anxious or stressed and learn ways to manage it.Exercise is a great option. SEEK MEDICAL CARE IF: You have pain that is not relieved with rest or medicine. You have pain that does not improve in 1 week. You have new symptoms. You are generally not feeling well. SEEK IMMEDIATE MEDICAL CARE IF: You have pain that radiates from your back into your legs. You develop new bowel or bladder control problems. You have unusual weakness or numbness in your arms or legs. You develop nausea or vomiting. You develop abdominal pain. You feel faint. Document Released: 02/25/2006 Document Revised: 08/26/2012 Document Reviewed: Exit[employer] Patient Information 2015 [employer]. This information is not intended to replace advice given to you by your health care provider. Make sure you discuss any questions you have with your health care provider. No follow up information was provided. 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 Maximum three per 24 hours. Prescription must last 30 days., # 90 tabs, 0 Refill(s) We'll recheck a potassium level to follow-up on hypokalemia, probably caused by chlorthalidone. Refer for physical therapy and increased tramadol. We agreed to tramadol 100 mg at bedtime and 50 mg in the morning, 90 pills must last one month. She'll complete her controlled substance agreement today. I requested a phone update on status in 2 weeks with follow-up appointment to be scheduled in 3 months.
--- OUTSIDE RECORDS SUMMARY | 2016-06-12 22:37 | XMS REPORT | Referral Summary ---
Author Author [facility] Organization [facility] Address Unknown Phone Unavailable Care Team Providers Care Director Of Cardiac Rehabilitation Name Role Phone Jaziel Maynard Primary Care Physician [phone] Encounter Date(s): 12/10/14 - 12/10/14 [facility] [address] [place] [id number] Discharge Diagnosis: Increased white blood cell [...] EVERY EVENING AT BEDTIME, # 30 tabs, 2 Refill(s), eRx: [facility] #[id number], TAKE 1 TABLET BY MOUTH EVERY EVENING AT BEDTIME Start Date: 07/28/14 Status: Ordered cetirizine 10 mg oral tablet 10 mg 1 tabs, Oral, Daily, # 30 tabs, 3 Refill(s), Pharmacy: [facility] # [id number], 1 tabs Oral Daily Start Date: 12/03/14 Status: Ordered chlorthalidone 50 mg oral tablet 50 mg 1 tabs, Oral, Daily, # 30 tabs, 4 Refill(s), Pharmacy: [facility] # [id number], 1 tabs Oral Daily Start Date: 07/26/14 Status: Ordered codeine-guaiFENesin 10 mg-200 mg/5 mL oral liquid 10 mL, Oral, q4hr, as needed for cough, # 240 mL, 0 Refill(s) Start Date: 12/10/14 Stop Date: 12/17/14 Status: Ordered Flomax mg, Oral, Daily, 0 Refill(s) Start Date: 11/18/14 Status: Ordered hydrOXYzine hydrochloride 25 mg, Oral, BID, as needed for anxiety, 0 Refill(s) Start Date: 08/10/13 Status: Ordered metFORMIN 500 mg oral tablet, extended release See Instructions, TAKE TWO TABLETS BY MOUTH TWICE A DAY, # 120 tabs, 2 Refill(s) , eRx: [facility] #[id number], TAKE TWO TABLETS BY MOUTH TWICE A DAY Start Date: 12/08/14 Status: Ordered Misc Prescription compound hormone BID, 0 Refill(s) Start Date: 08/22/13 Status: Ordered potassium citrate 15 mEq oral tablet, extended release See Instructions, TAKE 1 TABLET BY MOUTH TWICE EVERY DAY, # 60 unknown unit, 5 Refill(s), eRx: [facility] #[id number], TAKE 1 TABLET BY MOUTH TWICE EVERY DAY Start Date: 10/08/14 Status: Ordered sertraline 100 mg oral tablet mg tabs, Oral, Daily, 0 Refill(s) Start Date: 07/26/14 Status: Ordered Tessalon 200 mg oral capsule 200 mg 1 caps, Oral, TID, X 7 days, # 21 caps, 0 Refill(s), Pharmacy: [facility] #[id number], 1 caps Oral TID,x7 days Start Date: 12/10/14 Stop Date: 12/17/14 Status: Ordered traMADol 50 mg oral tablet 100 mg 2 tabs, Oral, qPM, as needed for pain, n dillons, # 60 tabs, 0 Refill(s) Start Date: 11/18/14 Stop Date: 12/18/14 Status: Ordered Results No data available for this section Immunizations No data available for this section Procedures Procedure Date Related Diagnosis Body Site Left L5-S1 Translaminar 12/08/13 Appendectomy Colonoscopy1 Hernia Hysterectomy Infection wound vac- post surgery Multiple Surgeries SIVA/BSO Tonsillectomy 1Old Records reviewed. Done by Dr. perez in [place]. 03/31/09. NEG except "diminutive" polyps x2 - [...] Title: Office Visit Note Author: Samy Mendiola STORE CUSTODIAN Date: 12/10/14 Assessment/Plan 1.Acute URI Due to [...] # 21 caps, 0 Refill(s ), Pharmacy: [facility] #[id number], 1 caps Oral TID,x7 days codeine-guaiFENesin, 10 mL, Oral, q4hr, as needed for cough, # 240 mL, 0 Refill(s)
[2016-06-12 22:53] VITALS: BP 147/97; PULSE 112; RESP 20; TEMP 98.9; O2SAT 97; Ht 167.6 cm; Wt 127.4 kg
--- NOTE | 2016-06-12 23:17 | ERPDOC ---
Departure Disposition Decision Date: Jun 12, 2016 Disposition Decision Time: 23:17 Disposition: 01 DISCHARGED HOME, SELF-CARE Impression Impression Impression: Primary Impression: Skin infection Severity: Moderate Condition: Stable Seen By: Mid-level only Referrals: ANTONIO PALACIO (Family) Patient Instructions: Cellulitis (ED) Problems/Meds/Labs Reviewed?: Yes Medications reviewed and manag: Yes Additional Instructions: Take the Bactrim as prescribed and apply the Bactroban ointment as well. Keep covered with gauze or band aid. If this is not improving at all in the next 24- 48 hours then please follow up with your primary care provider or return to ER. Follow up care ordered?: Yes Mental Status: Alert Scripts Mupirocin (Bactroban) 15 Applic/15 G Cr 1 APPLIC TD BID, #15 G 0 Refills Prov: DAJUAN CARR APRN 06/12/16 Sulfamethoxazole/Trimethoprim (Bactrim Ds Tablet) 1 Each Tablet 1 TAB PO BID, #20 TAB 0 Refills Take 1 tablet, by mouth, 2 times a day. Prov: DAJUAN CARR APRN 06/12/16 HPI - Skin General General Chief Complaint: Skin Rash/Abscess Stated Complaint: PAINFUL SORE ON ABDOMEN Time Seen by Provider: 23:03 Source: patient Exam Limitations: no limitations HPI - Skin General Initial Comments This evening she reached down and was going to scratch her lower left abdomen. Noted that she had an open lesion on her skin there. She recently within the last few months had a hernia repair on this side and had an internal infection. Was concerned that this could be related. She does not recall any burn or injury to the area where the lesion is. Denies any fever or chills at all. Occurred At: home Onset: Rapid Duration: 1-3 hrs (when she first noticed the lesion) Severity: moderate Location: torso (left lower abdomen) Possible Cause: no cause identified Associated Symptoms: denies symptoms Hx of Similar Symptoms: No Allergies: Coded Allergies: Penicillins (Verified Allergy, Unknown, 08/22/13) Past History Past Medical History Metabolic: diabetes Respiratory: asthma, pneumonia GI: ulcers Female: UTI, endometriosis, kidney stones, other Psychological: depression Surgical History General: appendix, hernia, tonsils Reproductive/: hysterectomy, other Family History Family PMH: FOUND: diabetes Vaccines Hx Influenza Vaccination: No Hx Pneumococcal Vaccination: Yes (2008) Review of Systems Constitutional Constitutional: DENIES: chills, dizziness, fatigue, fever, weakness GI Upper Abdomen: DENIES: nausea, pain, vomiting Lower Abdomen: DENIES: constipation, diarrhea, pain Integumentary Skin: lesion (on the left lower abdomen with surrounding erythema) Neurological General: DENIES: numbness, tingling Physical Exam General General Nourishment: well nourished, well developed, appears stated age, no acute distress, adult, obese General Body Habitus: well groomed Vitals and Pain Weight: Kilograms: Height (feet): 5 Height (inches): 6 Triage Pain Scale: RN VS reviewed by Provider: Yes Normal Exams: Neck: Full range of motion, without adenopathy, JVD, bruits or thyromegaly Chest/Resp: Clear all buchanan, with good airflow, and symmetry bilaterally CV: Regular rate and rhythm, without murmur or gallop, Pulses 2+ all extremities, capillary refill, <2 seconds all ext., no pedal edema noted Abdomen: Bowel sounds positive, non-distended, no hepatosplenomegaly, masses or bruits noted Neurologic: Patient is alert, and oriented Psychiatric: Patient exhibits, appropriate attention, emotion and affect Abdomen Inspection: NOT FOUND: distention Palpation: FOUND: soft, NOT FOUND: involuntary guarding, tender, voluntary guarding Auscultation: FOUND: normoactive Integumentary (brief) Integumentary Brief: FOUND: lesions (There is a small circular quarter sized lesion on the left lower abdomen. There is surrounding blanchable erythema around the lesion. This is irregularly shaped. No surrounding induration noted.) Differential Diagnoses Considering: Abscess, Bite, Chemical Burn, Thermal Burn, Cellulitis Progress Results/Orders Orders Procedure Category Date Status Time Sulfamethoxazole/Trimethoprim PHA 06/12/16 In Process (Bactrim D 23:30 Medications Current ED Medications Trimethoprim/ Sulfamethoxazole (Bactrim Ds) 1 tab ONE TIME ONCE PO ; Start 06/12 at 23:30; Stop 06/12/16 at 23:31 Progress Progress I am going to have her start on some Bactrim today. Apply topical Bactroban to the area and cover with band aid. If this is not improving then follow up with his PCP or return to Er for reevaluation. NOLD,DAJUAN N CLARIFICATION OPERATOR Jun 12, 2016 23:16
[2016-06-12] MEDS ORDERED: MUPI15CR TD (23:19)
[2016-06-12] MEDS ORDERED: SULF1TAB42 PO (23:19)
[2016-06-12] MEDS ORDERED: SULFAMETHOXAZOLE/TMP 800mg/160mg TABLET PO ONE (23:30)
--- NOTE | 2016-06-13 00:10 | NUR ---
DEPART PT IS DISCHARGED AT THIS TIME BY DELANEY CARR APRN, INSTRUCTIONS ARE GIVEN AND UNDERSTANDING IS VOICED. BACTRIM PO IS ALSO ADMINISTERED BY LAMBERTO. NO DISCHARGE VITALAS WERE TAKEN.
--- OUTSIDE RECORDS SUMMARY | 2016-06-13 00:13 | XMS REPORT | Continuity of Care Document ---
Author Author [facility] Address Unknown Phone Unavailable Care Team Providers Care Director Automotive Name Role Phone [employer] Unavailable Unavailable Problems Medications Allergies, Adverse Reactions, Alerts Immunizations Results Vital Signs Encounters Procedures Plan of Care Social History Assessment and Plan Family History Value Date Source Advance Directives Order Name Results Value Date Source
--- OUTSIDE RECORDS SUMMARY | 2016-06-13 00:14 | XMS REPORT | Continuity of Care Document ---
Author Author [facility] Organization [facility] Address Unknown Phone Unavailable Support Name Relationship Address Phone BRANDI FORD MD Caregiver [address] [place] [address] ABRAHAM VAUGHN MD Caregiver [address] [place] [address] RYDER STEINBERG Next Of Kin [address] [place] [address] Insurance Providers Payer Name Policy Number Subscriber Name Relationship Helen Select [id number] Ryder Steinberg 01 Spouse Problems Medical Problems [...] 1 Tab PO DAILY 04/16/11 04/23/12 Discontinued [place]-3 Fatty Acids 500 Mg PO DAILY 04/16/11 [...] F (96.8 - 99.1) Temperature (Calculated Celsius) 37.42993 degrees C (36.0 - 37.3) Pulse Rate [...] Sent out - CALL RESULTS TO DR. CARLOS Parathyroid Hormone (Intact) June 13, 2012 11:49am [...] 2012 6:30am 161 MEQ/L - Urine Specific Plush August 22, 2013 2:10pm >=1.030 H - [...] 17, 2012 11:14am LAB TEST FORM REQUEST [id number] - Urine Citrate Excretion Rate June 17, 2012 6:30am 475 mg/spec - Reference Range:228 - 1191 Urine Citrate Concentration June 17, 2012 6:30am 25.7 mg/dL - Test Performed by:[place] [address] Food Processing Plant Manager: Jitendra Felder III, M.D. Citrate Excretion 24 hr urine performed at [facility], [address] [place] [address] Recycling Technician Bradford Kaufman MD Urine Oxalate mmol/spec June [...] 2012 6:30am 4.4 mg/L - Test Performed by:[place] [address] Food Processing Plant Manager: Jitendra Felder III, M.D. Oxalate, [place] [address] Recycling Technician Bradford Kaufman MD Urine Microscopic Not Indicated December 31, 2011 11:15pm Not indicated - Has specimen been collected/obtained? Y C. difficile Toxin B Gene (PCR) May 08, 2012 9:45pm Negative - If Toxin A is clinically indicated, treat accordingly. Urine Total Volume (Citrate) June 17, 2012 6:30am 1850 mL - Citrate Excretion 24 [place] [address] Recycling Technician Bradford Kaufman, Test Performed by: [place] [address] Food Processing Plant Manager: Jitendra Felder III, M.D. Citrate Excretion 24 hr urine performed at [place] [address]265 Recycling Technician Bradford Kaufman MD Citrate Excretion 24 [place] [address] Recycling Technician Bradford Kaufman, --- 06/20/12 0032 --- CITVO previously reported as: 1850 Citrate Excretion 24 [place] [address] Recycling Technician Bradford Kaufman, Test Performed by: [place] [address] Food Processing Plant Manager: Jitendra Felder III, M.D. Citrate Excretion 24 [place] [address] Recycling Technician Bradford Kaufman, Test Performed by: [place] [address] Food Processing Plant Manager: Jitendra Felder III, M.D. Citrate Excretion 24 [place] [address] Recycling Technician Bradford Kaufman MD Citrate Excretion 24 [place] [address] Recycling Technician Bradford Kaufman, --- 06/20/12 0032 --- CITVO previously reported as: 1850 Citrate Excretion 24 [place] [address] Recycling Technician Bradford Kaufman, --- 06/20/12 0040 --- [facility] previously reported as: 1850 mL Citrate Excretion 24 [place] [address] Recycling Technician Bradford Kaufman, Test Performed by: [place] [id number] Food Processing Plant Manager: Jitendra Felder III, M.D. Citrate Excretion 24 hr urine performed at [address] [address] Recycling Technician Bradford Kaufman MD Citrate Excretion 24 [place] [address] Recycling Technician Bradford Kaufman, --- 06/20/12 0032 --- CIT[facility] previously reported as: 1850 Citrate Excretion 24 [place] [address] Recycling Technician Bradford Kaufman, Urine Total Volume (Oxalate) June 17, 2012 6:30am 1850 mL - Oxalate , Urine performed at [place], [place] [address]idskj Director Bradford Kaufman, Test Performed by: [address] [address] Food Processing Plant Manager: Jitendra Felder III, M.D. Oxalate, Urine performed at [address] [address] Recycling Technician Bradford Kaufman MD Oxalate, [place] [address] Recycling Technician Bradford Kaufman, --- 06/20/1236 --- OXAVOL previously reported as: 1850 Oxalate, [place] [address] Recycling Technician Bradford Kaufman, Test Performed by: [place] [address] Food Processing Plant Manager: Jitendra Felder III, M.D. Oxalate, [place] [address] Recycling Technician Bradford Kaufman, Test Performed by: [place] [address] Food Processing Plant Manager: Jitendra Felder III, M.D. Oxalate, [place] [address] Recycling Technician Bradford Kaufman MD Oxalate, [place] [address] Recycling Technician Bradford Kaufman, --- 06/20/1236 --- OXAVOL previously reported as: 1850 Oxalate, [place] [address] Recycling Technician Bradford Kaufman, --- 06/20/1240 --- OXAVOL previously reported as: 1850 mL Oxalate, [place] [address] Recycling Technician Bradford Kaufman, Test Performed by: [place] [address] Food Processing Plant Manager: Jitendra Felder III, M.D. Oxalate, [place] [address] Recycling Technician Bradford Kaufman MD Oxalate, [place] [address] Recycling Technician Bradford Kaufman, --- 06/20/1236 --- OXAVOL previously reported as: 1850 Oxalate, [place] [address] Recycling Technician Bradford Ham III R, U Collection Duration [...] ADDON completed 08/22/13 TX/PRO/DX INJ SAME DRUG SUPERVISING CHEF completed 08/22/13 HYDRATE IV INFUSION ADD-ON completed 08/22/13 Encounters Encounter Location Date/Time Departed Emergency Room 08/22/13 11:04am Recent Diagnosis
--- OUTSIDE RECORDS SUMMARY | 2016-06-13 00:15 | XMS REPORT | Continuity of Care Document ---
Author Author [facility] Organization [facility] Address Unknown Phone Unavailable Care Team Providers Care Professional Skater Name Role Phone Pavel Villavicencio MD Primary Care Physician [phone] Insurance Providers Payer Name Policy Number Subscriber Name Relationship [id number] Ryder Steinberg 01 Problems Medical Problems Problem Onset Date Status Hematuria Unknown Active Medications Medication Dose Route Sig Days/Qty Instructions Order Date Discontinued Date Status Zolpidem Tartrate 10 Mg ORAL NEEDED 07/02/14 Active Acetaminophen/Hydrocodone Bitart 1 Tab ORAL NEEDED PRN PAIN Active Aripiprazole 5 Mg ORAL DAILY 07/02/14 Active Biotin 1 Mg ORAL DAILY 07/02/14 Active Chlorthalidone 50 Mg ORAL DAILY 07/02/14 Active [place] 3 Polyunsat Fatty Acids 1,000 Mg ORAL [...]
--- OUTSIDE RECORDS SUMMARY | 2016-06-13 00:15 | XMS REPORT | Continuity of Care Document ---
Author Author [facility] Organization [facility] Address Unknown Phone Unavailable Allergies Active Description Code Type Severity Reaction Onset Reported/Identified Relationship to Patient Clinical Status Yes Penicillins 476 Allergen Group moderate Hives / Skin Rash Yes No Known Intolerances No Known Intolerances Drug Allergy Mild N/A 10/26/2008 Yes Penicillins Penicillins Drug Allergy Moderate HIVES 10/26/2008 Yes Penicillins [id number] Drug Allergy Unknown N/A 06/04/2014 Medications Problems [...] Status Pt. Type Provider Facility Loc./Unit Complaint [id number] 02/10/2013 14:21:00 02/10/2013 23 :59:59 [facility] Outpatient [id number] 01/06/2013 12:50:00 01/06/2013 23 :59:59 [facility] Outpatient
[2016-06-13] MEDS ORDERED: ACET1TAB25 PO (00:43)
[2016-06-13] MEDS ORDERED: POTA15TA11 PO (00:43)
[2016-06-13] MEDS ORDERED: ALLO100T PO (00:43)
== END 2016-06-13 00:10 | disposition home or self-care (01) ==
LOC: ED 22:30
DX: L08.9 Local infection of the skin and subcutaneous tissue, unspecified (principal)